=== PATIENT | male | born 1965 | race Caucasian/White ===

== ENCOUNTER → 2017-12-14 13:31 | Outpatient (CLI) | payer BC, SELFPAY ==
[2017-12-14 13:59] LABS: Blood Urea Nitrogen 22 mg/dL (7-18); Estimated Glomerular Filt Rate 64 ml/min (>60); GFR (African American) 78 ML/MIN (>60)
== END ==
PROVIDERS: Visit Provider Internal Medicine Adolescent Medicine
DX: R06.09 Other forms of dyspnea (principal)
CPT/HCPCS: 36415; 82565; 84520

== ENCOUNTER → 2017-12-15 09:22 | Outpatient (CLI) | payer BC, SELFPAY ==
--- NOTE | 2017-12-15 09:28 | CT_ITS ---
CT angio chest HISTORY: ITS.REASON: DYSPNEA ON EXERTION ORDERING PHYSICIAN: Kulwant Rojas MD PATIENT AGE: 52 years TECHNIQUE: Axial images obtained following the administration of 75 mL of Isovue 370 . Sagittal, and coronal reformatted images are also generated and reviewed. COMPARISON: 09/01/2016 FINDINGS: There is scattered small lymph nodes are present within the mediastinum not significant changed. The largest node is in the right paratracheal region measuring 2.8 x 1.5 cm. Small hilar nodes are also present. Some of these nodes contain calcium. Subcarinal lymph nodes are present as well measuring up to 3.7 x 2.7 cm not significantly changed. Small periesophageal lymph nodes are present as well. No evidence of aortic aneurysm, dissection, or pulmonary embolus. There is calcification of the coronary arteries consistent with coronary artery disease. There are atelectatic changes in the right middle lobe and dependent changes in the lung bases. No lobar consolidation or effusion area no acute bony anomalies. Previously noted nodule in the right lower lobe once again noted and appears to contain some calcium consistent with a granuloma. Parenchymal faint opacity is present in the right apex medially nonspecific and may be part of the in changes from low lung volumes. IMPRESSION: 1. Overall no change from 09/01/2016 with no acute finding. 2. No evidence of pulmonary embolus or aortic aneurysm. 3. Mediastinal and hilar adenopathy overall not significantly changed
--- NOTE | 2017-12-15 10:19 | HMH.ITSHM ---
VALSARIAM VERAMIL LEVOTHYROXIN FUROSEMIDE POTASSIUM CHLORIDE
== END ==
PROVIDERS: Family Provider Internal Medicine Adolescent Medicine; PCP Internal Medicine Adolescent Medicine; Visit Provider Internal Medicine Adolescent Medicine
DX: R06.09 Other forms of dyspnea (principal)
CPT/HCPCS: 71275; Q9967

== ENCOUNTER → 2019-05-05 08:53 | Outpatient (CLI) | payer BC, SELFPAY ==
[2019-05-05 09:21] LABS: Basophils # 0.1 K/mm3 (0-0.2); Basophils % 0.8 % (0.1-2.0); Eosinophils # 0.1 K/mm3 (0.0-0.4); Eosinophils % 1.4 % (0.1-12.0); Hematocrit 48.4 % (42.0-52.0); Hemoglobin 15.6 g/dL (14.1-18.0); Lymphocytes # 2.3 K/mm3 (0.7-4.5); Lymphocytes % 26.6 % (10-50); Mean Corpuscular HGB Conc 32.3 g/dL (31.8-35.4); Mean Corpuscular Volume 92.9 fl (80-94); Mean Platelet Volume 7.5 fl (7.4-10.4); Monocytes # 0.6 K/mm3 (0.1-1.0); Monocytes % 7.5 % (1.7-9.3); Neutrophils # 5.4 K/mm3 (1.8-7.8); Neutrophils % 63.8 % (37.0-80.0); Platelet Count 166 K/mm3 (142-424); Red Cell Distribution Width 14.2 % (11.5-17.5); White Blood Count 8.5 K/mm3 (4.8-10.8)
[2019-05-05 09:48] LABS: Hemoglobin A1C 5.1 % (0.0-7.0)
[2019-05-05 10:36] LABS: Alanine Aminotransferase 39 U/L (12-78); Albumin Level 3.7 gm/dL (3.4-5.0); Albumin/Globulin Ratio 1.2 (1.1-1.8); Alkaline Phosphatase 79 U/L (46-116); Aspartate Amino Transferase 21 U/L (15-37); Bilirubin,Total 0.9 mg/dL (0.2-1.0); Blood Urea Nitrogen 19 mg/dL (7-18); Calcium 8.9 mg/dL (8.5-10.1); Carbon Dioxide 30 mmol/L (21.0-32.0); Chloride 104 mmol/L (98-107); Chol/HDL Ratio 5.7 (1-3.5); Cholesterol 183 mg/dL (140-200); Creatinine,Serum 1.17 mg/dL (0.70-1.30); Estimated Glomerular Filt Rate 66 ml/min (>60); Free Thyroxine Index 2.3 ug/dL (5.93-13.13); GFR (African American) 80 ML/MIN (>60); Globulin 3.2 gm/dl (1.3-3.2); Glucose 94 mg/dL (74-106); HDL Cholesterol 32 mg/dL (27-67); LDL Cholesterol 124 mg/dL (0-130); Prostate Specific Ag Screen 4.2 ng/mL (0.0-4.0); Sodium 140 mmol/L (136-145); T4 (Thyroxine) 7.3 ug/dl (4.7-13.3); Thyroid Stimulating Hormone 3.94 uIU/ml (0.358-3.740); Total Protein,Serum 6.9 gm/dL (6.4-8.2); Triglycerides 135 mg/dL (30-200); Triiodothryronine (T3) Uptake 32 % (31-39); VLDL Cholesterol 27 mg/dL (0-40)
[2019-05-06 17:13] LABS: Vitamin B12 895 pg/mL (232-1245)
[2019-05-09 08:21] LABS: Methylmalonic Acid 166 nmol/L (0-378)
[2019-05-09 14:08] LABS: Vitamin D 25 Hydroxy 35.2 ng/mL (30.0-100.0)
[2019-05-09 14:16] LABS: Testosterone, Total, LC/MS 213.9 ng/dL (264.0-916.0); Testosterone,Free 8.2 pg/mL (7.2-24.0)
== END ==
PROVIDERS: Visit Provider Internal Medicine Adolescent Medicine
DX: E29.1 Testicular hypofunction (principal); N40.1 Benign prostatic hyperplasia with lower urinary tract symptoms; E03.9 Hypothyroidism, unspecified; Z12.5 Encounter for screening for malignant neoplasm of prostate
CPT/HCPCS: 36415; 80053; 80061; 82131; 82607; 82652; 83036; 84402; 84403; 84436; 84443; 84479; 85025; G0103

== ENCOUNTER → 2019-08-04 11:18 | Outpatient (CLI) | payer BC, SELFPAY ==
[2019-08-04 11:31] LABS: Basophils # 0.1 K/mm3 (0-0.2); Basophils % 0.7 % (0.1-2.0); Eosinophils # 0.2 K/mm3 (0.0-0.4); Eosinophils % 1.9 % (0.1-12.0); Hematocrit 51.5 % (42.0-52.0); Hemoglobin 16.5 g/dL (14.1-18.0); Lymphocytes # 1.8 K/mm3 (0.7-4.5); Lymphocytes % 20.1 % (10-50); Mean Corpuscular Volume 97.1 fl (80-94); Mean Platelet Volume 7.7 fl (7.4-10.4); Monocytes # 0.7 K/mm3 (0.1-1.0); Monocytes % 8.5 % (1.7-9.3); Neutrophils % 68.9 % (37.0-80.0); Platelet Count 190 K/mm3 (142-424); Red Cell Distribution Width 14.2 % (11.5-17.5); White Blood Count 8.8 K/mm3 (4.8-10.8)
[2019-08-04 12:48] LABS: Erythrocyte Sedimentation Rate 4 mm/hr (0-20)
[2019-08-04 13:32] LABS: Alanine Aminotransferase 37 U/L (12-78); Albumin Level 3.8 gm/dL (3.4-5.0); Albumin/Globulin Ratio 1.3 (1.1-1.8); Alkaline Phosphatase 75 U/L (46-116); Anion Gap 10.4 mEq/L (5-15); Aspartate Amino Transferase 21 U/L (15-37); Bilirubin,Total 0.8 mg/dL (0.2-1.0); Blood Urea Nitrogen 14 mg/dL (7-18); Calcium 8.9 mg/dL (8.5-10.1); Carbon Dioxide 29 mmol/L (21.0-32.0); Chloride 104 mmol/L (98-107); Chol/HDL Ratio 6.1 (1-3.5); Cholesterol 164 mg/dL (140-200); Creatinine,Serum 1.04 mg/dL (0.70-1.30); Estimated Glomerular Filt Rate 75 ml/min (>60); GFR (African American) 91 ML/MIN (>60); Glucose 88 mg/dL (74-106); HDL Cholesterol 27 mg/dL (27-67); LDL Cholesterol 116 mg/dL (0-130); Potassium 4.4 mmoL/L (3.5-5.1); Sodium 139 mmol/L (136-145); Thyroid Stimulating Hormone 3.07 uIU/ml (0.358-3.740); Total Protein,Serum 6.8 gm/dL (6.4-8.2); Triglycerides 103 mg/dL (30-200); VLDL Cholesterol 21 mg/dL (0-40)
== END ==
PROVIDERS: Visit Provider Internal Medicine Adolescent Medicine
DX: R07.9 Chest pain, unspecified (principal); R78.5 Finding of other psychotropic drug in blood; N40.1 Benign prostatic hyperplasia with lower urinary tract symptoms; E03.9 Hypothyroidism, unspecified; R51 Headache
CPT/HCPCS: 36415; 80053; 80061; 84443; 85025; 85651

== ENCOUNTER → 2019-08-09 14:06 | Outpatient (CLI) | payer BC, SELFPAY ==
--- NOTE | 2019-08-09 | CA_ITS ---
APPROVED REPORT Exam: Exercise Treadmill Technologist: Lois Gamez, Ht: 5 ft 10 in Wt: 230 lbs BSA: 2.21 m2 HR: 70 bpm BP: 142/81 mmHg Rhythm: NSR ST-T ABN. INFERIORLY Medical History Medical History: HTN Medications: Verapamil,,,,, Losartan,,,,, Cardiac Risk Factors: HTN, FHX of CAD Stress Test Details Test: Juan R HR Resting HR: 77 bpm Max Heart Rate (APMHR): 169 bpm Max HR Achieved: 132 bpm Target HR (85% APMHR): 143 bpm % of APMHR: 78 Recovery HR: 116 bpm BP Resting BP: 142.0/81.0 mmHg Max BP: 215.0/76.0 mmHg Recovery BP: 190.0/75.0 mmHg ECG Resting ECG: NSR,ST-T ABN.INFERIORLY Clinical Exercise duration: 09:32 min Highest Stage Achieved: Exercise capacity: 10.1 METs Stress ECG Conclusion EXERCISED 9:32 IN JUAN R PROTOCOL WITH MAX HEART RATE OF 132 BPM WHICH IS 78% OF PM FOR AGE. MAX BP 215/76. METS = 10.1. TEST STOPPED DUE TO SOA AND FATIGUE. PATIENT HAD SOA BUT NO CHEST PAIN. RARE PAC. EXAGGERATION OF BASELINE ST-T ABNORMALITIES INFERIORLY. APPROX 0.5MM HORIZONTAL ST DEPRESSION LATERALLY. PROBABLY NORMAL GXT. BLUNTED HEART RATE RESPONSE ON VERAPAMIL. GXT ONLY(NO IMAGING) Test Summary REST . . . . . . . Sitting REST . . . . . . . Standing REST . . . . . . . Sitting REST 04:10 0.0 0.0 77 . 142/ 81 . . Stage 1 01:00 10.0 1.7 88 . . . . Stage 1 02:00 10.0 1.7 95 . . . . Stage 1 03:00 10.0 1.7 93 . 174/ 66 . . Stage 2 01:00 12.0 2.5 97 . . . . Stage 2 02:00 12.0 2.5 103 . . . . Stage 2 03:00 12.0 2.5 105 . 186/ 80 . . Stage 3 01:00 14.0 3.4 112 . . . . Stage 3 02:00 14.0 3.4 116 . . . . Stage 3 03:00 14.0 3.4 121 . 215/ 76 . . Stage 4 00:32 16.0 4.2 130 . . . Stop exercise at 09:32 RECOVERY 01:00 0.0 0.0 116 . . . . RECOVERY 02:00 0.0 0.0 95 . 190/ 75 . . RECOVERY 03:00 0.0 0.0 86 . 187/ 78 . . RECOVERY 04:00 0.0 0.0 86 . 172/ 74 . . RECOVERY 05:00 0.0 0.0 85 . 184/ 64 . . RECOVERY 05:41 0.0 0.0 81 . 184/ 64 . . Electronically signed by : Kulwant Rojas, 08/10/2019 08:15:26
--- NOTE | 2019-08-09 15:13 | MR_ITS ---
PROCEDURE: MR HEAD/BRAIN WO CON CLINICAL INDICATION: HEADACHE ABOVE THE EYE REGION Headache on the right side severe at times COMPARISON: [facility] MRI-BRAIN W/WO from 05/09/2013 LS5 LUMBAR SPINE 5 VIEWS from 03/27/2014 TECHNIQUE: Routine multiplanar multi echo sequences are performed without gadolinium enhancement. FINDINGS: No midline shift, mass effect, intracranial hemorrhage, hydrocephalus, or acute infarction is evident. There are scattered periventricular and subcortical T2 white matter hyperintensities. These are nonspecific but may be seen with ischemic gliotic change from microvascular disease or migraine headache. A few T2 hyperintensities are present in the hakan. These do not demonstrate restricted diffusion. Incidental note made perivascular dilated spaces are present within the basal ganglia. The cerebellopontine angle, cerebellum, and brainstem are unremarkable. No mastoid effusion evident. There is a prominent mucous retention cyst in the right maxillary sinus measuring 24 mm. The pituitary, optic chiasm, corpus callosum, and craniocervical junction have an unremarkable appearance. No large aneurysms are evident. IMPRESSION: 1. No acute intracranial findings. 2. Scattered punctate periventricular and subcortical T2 white matter hyperintensities. These are nonspecific and may be seen with ischemic gliotic change from microvascular disease or migraine headache. Demyelinating process is felt to be less likely due to the characteristics but not totally excluded. 3. Right maxillary sinus retention cyst Dictated by: Saturnino Andrew MD 08/10/2019 12:41 Electronically signed by Saturnino Andrew MD in [place] 08/10/2019 12:41
== END ==
PROVIDERS: PCP Internal Medicine Adolescent Medicine; Visit Provider Internal Medicine Adolescent Medicine
DX: R51 Headache (principal); R07.9 Chest pain, unspecified
CPT/HCPCS: 70551; 93017

== ENCOUNTER → 2019-12-12 12:37 | Outpatient (CLI) | payer BC, SELFPAY ==
--- NOTE | 2019-12-12 12:42 | XR_ITS ---
PROCEDURE: XR CHEST 2V CLINICAL HISTORY: WHEEZING /Lisfranc's tissue acute past os and contrast a pain base jump placed COMPARISON: CXR CHEST(2 VIEWS-NOT PORTABLE) from 09/01/[address] angio chest from 12/15/2017 FINDINGS: The cardiomediastinal silhouette and pulmonary vascularity are within normal limits. Coronary artery calcification or stent is noted. The lungs are clear without infiltrates, suspicious nodules, or pleural effusions. No acute bony abnormalities. IMPRESSION: No acute findings. Dictated by: Saturnino Andrew MD 12/12/2019 17:57 Electronically signed by Saturnino Andrew MD in [place] 12/12/2019 17:57
== END ==
PROVIDERS: PCP Internal Medicine Adolescent Medicine; Visit Provider Internal Medicine Adolescent Medicine
DX: R06.2 Wheezing (principal)
CPT/HCPCS: 71046

== ENCOUNTER → 2020-01-01 13:26 | Outpatient (CLI) | payer BC, SELFPAY ==
--- NOTE | 2020-01-01 13:29 | CT_ITS ---
PROCEDURE: CT CHEST WO CON CLINICAL INDICATION: [employer] PNEUMOCANIOSIS, CHRONIC BRONCHITIS COMPARISON: [facility] CT CHEST W/ CONTRAST from 09/01/[address] angio chest from 12/15/2017 TECHNIQUE: Axial images obtained with sagittal and coronal reformats. All CT scans at the facility use one or more dose reduction, viz: automated exposure control, ma/kV adjustment per patient size (including targeted exams where dose is matched to indication, i.e. head), or iterative reconstruction technique. FINDINGS: HEART AND MEDIASTINAL STRUCTURES: Nodularity of the isthmus of the thyroid gland with bilateral hypo dense nodules of the thyroid gland. There is scattered small mediastinal lymph nodes some of which contain calcium. Small bilateral hilar nodes are also present some of which contain calcium. There are coronary artery calcifications. Normal heart size. There is minimal thickening of pericardium LUNGS AND PLEURAL SPACES: There are scattered small bilateral pulmonary nodular opacities. Some of these were present previously but some were not identified previously but may have been due to the technique as there was poor inspiration on the previous exam. There is a 3 mm nodule in the right apex and 1 in the right apex medially and 1 in the right upper lobe posterior laterally with a partially calcified nodule in the right middle lobe. No lobar consolidation or collapse. No diaphragmatic calcification. No pleural plaques apparent. No pulmonary fibrosis or interlobular septal thickening. There is some scarring in the right middle lobe. The BONY STRUCTURES: No acute bony abnormalities apparent. UPPER ABDOMEN: Unremarkable. ADDITIONAL FINDINGS: No other significant abnormalities. IMPRESSION: Overall no significant change in the scattered small mediastinal and hilar lymph nodes some which contain calcium with evidence of old granulomatous disease. There are nonspecific small nodular opacities some of which are unchanged but some which were not identified previously possibly due to the technique. Suggest 6 month follow-up to confirm short term stability Dictated by: Saturnino Andrew MD 01/02/2020 12:18 Electronically signed by Saturnino Andrew MD in [place] 01/02/2020 12:18
== END ==
PROVIDERS: PCP Internal Medicine Adolescent Medicine; Visit Provider Internal Medicine Adolescent Medicine
DX: J60 Coalworker's pneumoconiosis (principal); J42 Unspecified chronic bronchitis
CPT/HCPCS: 71250

== ENCOUNTER → 2020-02-08 12:27 | Outpatient (CLI) | payer BC, SELFPAY ==
--- NOTE | 2020-02-08 12:35 | XR_ITS ---
PROCEDURE: XR HIP RT 2-3V W/PELVIS CLINICAL INDICATION: RT HIP PAIN Right hip pain COMPARISON: HIPB2 HIP BILATERAL 2 VIEW MIN EACH from 11/24/2016 XR FEMUR RT 2V from 02/08/2020 FINDINGS: Mild osteoarthritic changes are present involving the right hip with slight decrease in the joint space and osteophyte formation. No acute fracture or dislocation. No lytic or blastic change. IMPRESSION: Mild osteoarthritis of the right hip Dictated by: Saturnino Andrew MD 02/08/2020 16:07 Electronically signed by Saturnino Andrew MD in [place] 02/08/2020 16:07
--- NOTE | 2020-02-08 12:35 | XR_ITS ---
PROCEDURE: XR SACROILIAC JOINT BI MIN 3V CLINICAL INDICATION: RT HIP PAIN COMPARISON: No exams were available for comparison FINDINGS: The SI joints have an unremarkable appearance. No sclerosis, effusion, or lytic change evident. IMPRESSION: Negative SI joints Dictated by: Saturnino Andrew MD 02/08/2020 16:09 Electronically signed by Saturnino Andrew MD in [place] 02/08/2020 16:09
--- NOTE | 2020-02-08 12:35 | XR_ITS ---
PROCEDURE: XR FEMUR RT 2V CLINICAL INDICATION: RT HIP PAIN COMPARISON: No exams were available for comparison FINDINGS: No fracture or dislocation. No lytic or blastic change. There is normal mineralization. There are mild osteoarthritic changes of the right hip and the medial and lateral compartment of the right knee. No fracture or dislocation. There is mild generalized vascular calcification. No lytic or blastic change. Other findings:None. IMPRESSION: Mild osteoarthritis of the hip and knee otherwise negative right femur Dictated by: Saturnino Andrew MD 02/08/2020 16:08 Electronically signed by Saturnino Andrew MD in [place] 02/08/2020 16:08
== END ==
PROVIDERS: PCP Internal Medicine Adolescent Medicine; Visit Provider Internal Medicine Adolescent Medicine
DX: M25.551 Pain in right hip (principal)
CPT/HCPCS: 72202; 73502; 73552

== ENCOUNTER → 2020-08-09 08:31 | Outpatient (CLI) | payer BC, SELFPAY ==
--- NOTE | 2020-08-09 | MR_ITS ---
PROCEDURE: MR LUMBAR SPINE WO CON CLINICAL INDICATION: LBP WITH RT LEG SCIATICA Severe low back pain with right leg sciatica COMPARISON: [facility] LS5 LUMBAR SPINE 5 VIEWS from 03/27/2014 MR MR HEAD/BRAIN WO CON from 08/09/2019 TECHNIQUE: Standard multiplanar multiecho sequences are performed without contrast. 3-D MIP and myelographic images are also rendered and reviewed FINDINGS: There is normal alignment. The spinal cord ends at the L1 level. L1-L2: Unremarkable. L2-L3: Mild degenerative disc disease with mild bulging disc and facet and ligamentum hypertrophy. There is small broad-based left foraminal of disc protrusion/disc osteophyte complex causing mild left-sided foraminal narrowing. Type 2 endplate changes. L3-L4: Degenerative disc disease with broad-based bulging disc slightly eccentric toward the right with small right foraminal and lateral disc osteophyte complex with bilateral foraminal narrowing greater on the right. L4-5: Degenerative disc disease with bulging disc with facet and ligamentum hypertrophy with type 2 endplate changes with bilateral foraminal narrowing L5-S1: Mild facet and ligamentum hypertrophy. No bony canal stenosis. No extruded herniated disc. IMPRESSION: Multilevel lumbar spondylosis with degenerative disc disease, disc osteophyte complexes, bulging disc, endplate changes, facet and ligamentum hypertrophy with lateral recess and foraminal narrowing. Please see above for detailed description at each level. Dictated by: Saturnino Andrew MD 08/10/2020 07:34 Saturnino Andrew MD in [place] 08/10/2020 07:34
== END ==
PROVIDERS: PCP Internal Medicine Adolescent Medicine; Visit Provider Internal Medicine Adolescent Medicine
DX: M54.41 Lumbago with sciatica, right side (principal); G57.91 Unspecified mononeuropathy of right lower limb
CPT/HCPCS: 72148; 76376

== ENCOUNTER 2020-09-25 07:45 | Outpatient (RCR) | payer BC, SELFPAY | END 2020-09-25 07:50 | disposition home or self-care (01) | LOC: PT 07:45 | PROVIDERS: PCP Internal Medicine Adolescent Medicine; Visit Provider Neurological Surgery | DX: M54.5 Low back pain (principal) | CPT/HCPCS: 97163 ==

== ENCOUNTER 2020-10-26 22:59 | Emergency (ER) | payer BC, SELFPAY ==
[2020-10-26 23:00] VITALS: BP 146/85; PULSE 89; RESP 16; TEMP 36.8; O2SAT 96; BMI 33.0
--- NOTE | 2020-10-26 23:20 | CT_ITS ---
PROCEDURE: CT ABDOMEN PELVIS WO CON CLINICAL INDICATION: right flank pain Right flank pain COMPARISON: No exams were available for comparison TECHNIQUE: Axial images obtained with sagittal and coronal reformats. All CT scans at the facility use one or more dose reduction, viz: automated exposure control, ma/kV adjustment per patient size (including targeted exams where dose is matched to indication, i.e. head), or iterative reconstruction technique. FINDINGS: LOWER THORAX: Atelectatic changes are present in the lung bases. Coronary artery calcifications are noted. ABDOMEN & PELVIS: Fatty liver. The spleen, adrenal glands, and pancreas have an unremarkable appearance. There are punctate bilateral renal calculi. There is an obstructing stone in the proximal right ureter which measures 13 mm longitudinal and 5 mm transverse causing moderate right-sided hydronephrosis. There is mild stranding of the right perinephric renal fat. There are punctate bilateral renal calculi measuring up to 3 mm on both sides. Unremarkable appendix. There are scattered diverticula but no evidence of diverticulitis. Prostate is enlarged at 5.6 cm. No acute bony findings. There is diffuse vascular calcification in the lower extremities. IMPRESSION: 1. 13 x 5 mm calculus in the proximal right ureter causing moderate hydronephrosis 2. Bilateral renal calculi. 3. Fatty liver Dictated by: Saturnino Andrew MD 10/27/2020 05:36 Saturnino Andrew MD in [place] 10/27/2020 05:36
[2020-10-26 23:24] LABS: Basophils # 0.1 K/mm3 (0-0.2); Basophils % 0.4 % (0.1-2.0); Eosinophils # 0.2 K/mm3 (0.0-0.4); Eosinophils % 1.1 % (0.1-12.0); Hematocrit 49.2 % (42.0-52.0); Hemoglobin 16.9 g/dL (14.1-18.0); Lymphocytes # 1.7 K/mm3 (0.7-4.5); Lymphocytes % 10.3 % (10-50); Mean Corpuscular HGB Conc 34.3 g/dL (31.8-35.4); Mean Corpuscular Hemoglobin 32.6 pg (27.0-31.2); Mean Corpuscular Volume 94.8 fl (80-94); Mean Platelet Volume 7.4 fl (7.4-10.4); Monocytes # 1.1 K/mm3 (0.1-1.0); Monocytes % 6.4 % (1.7-9.3); Neutrophils # 13.4 K/mm3 (1.8-7.8); Neutrophils % 81.8 % (37.0-80.0); Platelet Count 201 K/mm3 (142-424); Red Blood Count 5.19 M/mm3 (4.60-6.20); White Blood Count 16.4 K/mm3 (4.8-10.8)
[2020-10-26 23:26] LABS: MANUAL DIFFERENTIAL MANUAL DIFFERENTIAL (MANUAL DIFF)
[2020-10-26 23:35] LABS: Alanine Aminotransferase 29 U/L (12-78); Albumin Level 4.5 g/dl (3.5-5.0); Albumin/Globulin Ratio 1.4 (1.1-1.8); Alkaline Phosphatase 96 U/L (38-126); Amylase 77 U/L (30-110); Aspartate Amino Transferase 33 U/L (17-59); Bilirubin,Total 0.8 mg/dl (0.2-1.3); Blood Urea Nitrogen 18 mg/dl (9-20); Calcium 9.7 mg/dl (8.4-10.2); Carbon Dioxide 28 mmol/L (22.0-30.0); Chloride 101 mmol/L (98-107); Creatinine Clearance Estimated 84 mL/min (50-200); Estimated Glomerular Filt Rate 49 ml/min (>60); GFR (African American) 59 ML/MIN (>60); Globulin 3.3 g/dL (1.3-3.2); Glucose 128 mg/dl (74-100); Lipase 75 U/L (23-300); Sodium 138 mmol/L (136-145); Total Protein,Serum 7.8 g/dl (6.3-8.2)
--- NOTE | 2020-10-26 23:35 | HMH.EDGENADL ---
ED Disposition Clinical Impression: Renal colic on right side Disposition: Home, Self-Care Condition on Discharge: Good Instructions: DI for Kidney Stones Additional Instructions: call pcp and urology this am Prescriptions: Tamsulosin HCl [Flomax 0.4mg capsule] 0.4 mg PO HS #10 cap Transmission Status: Pending to [id number] Referrals: Kulwant Rojas MD [Primary Care Provider] - Jose Mulligan MD [Staff Physician] - - Critical Care Critical Care Time: No Attestation: On , the high probability of a clinically significant, sudden or life threatening deterioration of the following system(s) required my full and direct attention, intervention and personal management. The time I documented below is in addition to time spent performing reported procedures but includes the following listed in this critical care notation. Medical Decision Making - Medical Records Medical records reviewed: Yes: I reviewed the patient's medical records. - Hugo Inquiry Pt receiving controlled substance: No Vital Signs: 10/26/20 23:00 Temperature 98.2 F Temperature Source Oral Pulse Rate [Left Radial] 89 Respiratory Rate 16 Blood Pressure [Right Arm] 146/85 H Blood Pressure Mean [Right Arm] 105 Blood Pressure Source [Right Arm] Automatic Cuff Blood Pressure Position [Right Arm] Sitting 02 Sat by Pulse Oximetry 96 Oxygen Delivery Method Room Air - Lab Data Lab results reviewed: Yes: I reviewed the patient's lab results. Lab Results 10/26/20 23:20: WBC 16.4 H, RBC 5.19, Hgb 16.9, Hct 49.2, MCV 94.8 H, MCH 32.6 H, MCHC 34.3, RDW 15.0, Plt Count 201, MPV 7.4, Neut % (Auto) 81.8 H, Lymph % (Auto) 10.3, Graham % (Auto) 6.4, Eos % (Auto) 1.1, Baso % (Auto) 0.4, Neut # (Auto) 13.4 H, Lymph # (Auto) 1.7, Graham # (Auto) 1.1 H, Eos # (Auto) 0.2, Baso # (Auto) 0.1, Total Counted 100, Neutrophils % (Manual) 73, Band Neutrophils % 8.0, Lymphocytes % (Manual) 19, Platelet Estimate Normal, RBC Morphology Normal, ESR 2 10/26/20 23:20: Sodium 138, Potassium 4.0, Chloride 101, Carbon Dioxide 28, Anion Gap 13.0, BUN 18, Creatinine 1.50 H, Estimated Creat Clear 84, Estimated GFR 49 L, Est GFR ( Amer) 59, Glucose 128 H, Calcium 9.7, Total Bilirubin 0.8, AST 33, ALT 29, Alkaline Phosphatase 96, C-Reactive Protein 6.9 H, Total Protein 7.8, Albumin 4.5, Globulin 3.3 H, Albumin/Globulin Ratio 1.4, Amylase 77, Lipase 75 10/27/20 00:23: Urine Color Yellow, Urine Appearance Clear, Urine pH 8.0, Ur Specific [place] 1.020, Urine Protein Trace, Urine Glucose (UA) Negative, Urine Ketones Negative, Urine Blood 3+, Urine Nitrate Negative, Urine Bilirubin Negative, Urine Urobilinogen 0.2, Ur Leukocyte Esterase Negative, Urine RBC 20-50, Ur Squamous Epith Cells 3-5, Amorphous Sediment Trace Result diagrams: 10/26/20 23:20 10/26/20 23:20 Orders (Tests/Meds): ED MEDICATIONS Generic Name Dose Route Start Last Admin Trade Name Freq PRN Reason Stop Dose Admin Sodium Chloride 1,000 mls @ 999 mls/hr 10/26/20 23:30 10/26/20 23:22 Sod Chlor 0.9% 1000ml Bag IV 10/27/20 00:30 999 mls/hr .Q1H1M KULDIP Administration Discontinued Medications Generic Name Dose Route Start Last Admin Trade Name Freq PRN Reason Stop Dose Admin Hydromorphone HCl 0.5 mg 10/27/20 00:11 10/27/20 00:17 Hydromorphone 2mg/Ml Syringe IV 10/27/20 00:12 0.5 mg ONCE ONE Administration Ketorolac Tromethamine 30 mg 10/26/20 23:20 10/26/20 23:22 Ketorolac 30mg/Ml Vial IV 10/26/20 23:21 30 mg ONCE ONE Administration Ondansetron HCl 4 mg 10/26/20 23:20 10/26/20 23:22 Ondansetron 4mg/2ml Vial IV 10/26/20 23:21 4 mg ONCE ONE Administration Tamsulosin HCl 0.4 mg 10/27/20 00:10 10/27/20 00:17 Tamsulosin 0.4mg Capsule PO 10/27/20 00:11 0.4 mg ONCE ONE Administration ORDERS Category Date Time Status CT abdomen pelvis wo con Stat Cat Scan 10/26/20 23:20 Taken Covid-19 IgG/IgM ([facility]) Stat Lab 10/27/20 00:07 Received
[2020-10-26 23:41] LABS: C-Reactive Protein 6.9 mg/L (0-4)
[2020-10-26 23:42] LABS: Lymphocytes % 19 % (10-50); Neutrophils % 73 % (42-76); Platelet Estimate Normal; RBC Morphology Normal; Total Cells Counted 100
--- NOTE | 2020-10-26 23:44 | PC.NURSE ---
pt back from CT
[2020-10-26 23:49] LABS: Erythrocyte Sedimentation Rate 2 mm/hr (0-20)
[2020-10-27 00:28] LABS: Microscopic, Urine URINE MICROSCOPIC (MICROSCOPIC)
[2020-10-27 00:31] LABS: Appearance,Urine CLEAR (Clear); Bilirubin,Urine Negative (Negative); Blood, Urine 3+ (Negative); Color,Urine YELLOW (Yellow); Glucose,Urine (UA) Negative (Negative); Ketones,Urine Negative (Negative); Leukocyte Esterase,Urine Negative (Negative); Nitrate,Urine Negative (Negative); Protein,Urine TRACE (Negative); Urobilinogen,Urine 0.2 EU/dl (0.2)
[2020-10-27 00:35] LABS: Amorphous Sediment,Urine Trace /lpf; RBC,Urine 20-50 #/hpf (0-3)
[2020-10-27 00:50] VITALS: BP 125/61; PULSE 80; RESP 16; TEMP 36.8; O2SAT 98
[2020-10-27 01:04] LABS: Coronavirus 19 IgG Antibody Negative (Negative); Coronavirus 19 IgM Antibody Negative (Negative)
== END 2020-10-27 00:52 | disposition home or self-care (01) ==
PROVIDERS: Emergency Provider Emergency Medicine; PCP Internal Medicine Adolescent Medicine
DX: N20.0 Calculus of kidney (principal); I10 Essential (primary) hypertension
CPT/HCPCS: 74176; 80053; 81001; 82150; 83690; 85007; 85025; 85651; 86140; 86328; 96365; 96375; 99283; J2405

== ENCOUNTER → 2020-10-27 13:47 | Outpatient (CLI) | payer BC, SELFPAY ==
[2020-10-27 14:24] LABS: Coronavirus 19 IgG Antibody Negative (Negative); Coronavirus 19 IgM Antibody Negative (Negative)
== END ==
PROVIDERS: Visit Provider Urology
DX: Z01.812 Encounter for preprocedural laboratory examination (principal); Z11.52 Encounter for screening for COVID-19; N20.1 Calculus of ureter
CPT/HCPCS: 36415; 86328

== ENCOUNTER 2020-10-27 14:00 | Day surgery (SDC) | payer BC, SELFPAY ==
[2020-10-27] VITALS (10 sets, daily range): BP systolic 92–153; BP diastolic 53–75; PULSE 56–80; RESP 12–18; TEMP 36.4–43; O2SAT 92–98; BMI 33.0
--- NOTE | 2020-10-27 | FL_ITS ---
PROCEDURE: FL URETHROCYSTOGRAM RETRO CLINICAL INDICATION: CYSTOSCOPY IN OR COMPARISON: No exams were available for comparison FINDINGS: Fluoroscopy: 25 seconds Images submitted demonstrating placement of right ureteral stent with the proximal aspect overlying the right upper quadrant and distal aspect curled overlying the right pelvic region IMPRESSION: Status post placement of right ureteral stent Dictated by: Saturnino Andrew MD 10/27/2020 19:39 Saturnino Andrew MD in [place] 10/27/2020 19:39
--- NOTE | 2020-10-27 15:22 | P.PN_ITS ---
[facility] Anesthesia Checklist - Structural Data Admitted From: Home Planned Operative Procedure/s: cysto Consent for Planned Operative Procedure(s) Verified: Yes - Additional verifications Anesthesia Reactions: No Hx Blood Transfusions: No Blood Transfusion Reaction: No - Airway Assessment C-Spine Mobility Assessed: Yes TMJ Mobility Assessed: Yes Dentition: Dentures-good fit - Neurological Assessment Level of Consciousness: Awake, Alert, Appropriate - Anesthesia Plan Anesthesia Risk discussed: Yes Anesthesia Plan: Verified ASA Class: III Anesthesia Type: General [facility] History I have reviewed the patient's past medical history: Yes Medical History: Reports:: Hypertension, Lung Disease, Kidney Stones Denies:: Diabetes Mellitus Type 1, Diabetes Mellitus Type 2, Internal Pacemaker, MRSA, Seizures *Have you ever received a pneumonia vaccine?: No *Have you received a flu vaccine this season?: Yes Other Medical History: Denies: Blood Transfusion Reaction Anesthesia experience/problems:: none Other Surgeries: Yes: Colonoscopy, Hernia Repair. No: Pacemaker Amputation: No Fractures: No - *Social History Last grade of school completed: High school graduate Smoking Status: Former smoker Tobacco Type: cigarettes #Yrs smoked (if former smoker): 30 Alcohol Intake: current Alcohol Intake Frequency:: holidays/special occasions only Substance Use Type: denies use *Occupational Status:: employed Housing: house Household Members: family *Travel in the last 8 weeks: None Family Hx:: Heart Attack, Hypertension
--- NOTE | 2020-10-27 15:24 | HMH.ANESI ---
[facility] Anesthesia Record Part I Intake, IV Amount: 500 Estimated blood loss (mL): 0 Urine output (mL): 0 Blood Pressure: 92/54 SaO2: 92 Pulse Rate: 80 Respiratory Rate: 12 Temperature: 97.6 F Patient is:: Awake, Stable Stable to PACU at:: 15:15
--- NOTE | 2020-10-27 15:47 | PC.NURSE ---
1544-detailed report given at bedside to YOVANNY Vicente 1545-pt transported to post op via stretcher w/kasandra rails up per YOVANNY Vicente, vss, pt stable
--- NOTE | 2020-10-27 15:51 | HMH.OPNOTE ---
Date of procedure: 10/27/20 Pre-op Diagnosis:: Right proximal ureteral stone, 13 x 5 mm Post-op Diagnosis:: Same Procedure performed:: Cystoscopy with right ureteral stone manipulation and right stent placement Surgeon:: Jose Mulligan MD PEELED POTATO INSPECTOR:: Mihai Mahoney Anesthesia: GETA Estimated blood loss (mL): 0 Clinical Note:: Seen in the emergency room last evening with right renal colic. CT scan revealed a 13 x 5 mm stone in the proximal right ureter with obstruction. His white count is elevated to 16.4 and his creatinine is elevated to 1.5. He is afebrile. He wishes to proceed with stent placement and later ESWL. Operative findings:: Proximal right ureteral stone was manipulated back into the kidney without difficulty. A 4.8 x 26 Bermudian stent was placed. There was no evidence of pyelonephrosis. Operative note:: Patient taken to the operating room after informed consent was obtained. Was placed on the operating table in the supine position and general anesthesia administered. Sequential compression devices and preoperative antibiotics administered. He was then placed inside the dorsal lithotomy position and prepped and draped in the standard surgical fashion. A 22 B[place]udian cystoscope passed into the urethral meatus and into the bladder without difficulty. The bladder was examined in a systematic fashion. There is no evidence of mucosal abnormalities, stones, trabeculation or diverticula. Prostate was enlarged and median lobe pushed inwards towards the trigone. The ureteral orifices in their normal anatomic position. A 5 B[place]udian ureteral catheter passed into the right ureteral orifice and under fluoroscopy passed up to the level of the stone. The stone was then manipulated retrograde and into the kidney without difficulty. 035 guidewire then passed through the ureteral catheter and into the renal pelvis. The ureteral catheter was removed and a 4.8 x 26 B[place]udian stent was passed over the wire and under fluoroscopy the wire was removed and a good curl was noted in the right renal pelvis and in the bladder. String was left on for later removal and was taped to the penis. Patient tolerated procedure well there are no complications. Urojet was placed into the urethra afterwards. Condition: stable Disposition: PACU Specimens:: None Complications:: None
--- NOTE | 2020-10-30 10:39 | HMH.ANESII ---
[facility] Anesthesia Record Part II Discharge Time: 15:45 Destination: [facility] PACU nurse assessment reviewed?: Yes Patient Condition:: Good Anesthesia Complications:: None Swallowing reflex intact?: Yes Cyanosis?: No Blood Pressure: 124/75 Pulse Rate: 60 Temperature: 97.8 F Mental Status: Alert & Oriented Pain level:: 0 Nausea and/or vomitting:: None Intake, IV Amount: 1,500
[2020-10-30 10:40] VITALS: BP 124/75; PULSE 60; TEMP 36.6
== END 2020-10-27 16:16 | disposition home or self-care (01) ==
PROVIDERS: PCP Internal Medicine Adolescent Medicine; Visit Provider Urology
PROC: (CPT 52332; principal; 2020-10-27 14:45)
DX: N21.1 Calculus in urethra (principal); N40.1 Benign prostatic hyperplasia with lower urinary tract symptoms; I10 Essential (primary) hypertension; Z87.891 Personal history of nicotine dependence; Z82.49 Family history of ischemic heart disease and other diseases of the circulatory system; Z79.890 Hormone replacement therapy; Z79.899 Other long term (current) drug therapy
CPT/HCPCS: 52000; 74450; 76000; 96374; C2617; J2405

== ENCOUNTER → 2020-11-05 12:34 | Outpatient (CLI) | payer BC, SELFPAY ==
[2020-11-05 13:43] LABS: Basophils # 0.1 K/mm3 (0-0.2); Basophils % 0.6 % (0.1-2.0); Eosinophils # 0.1 K/mm3 (0.0-0.4); Eosinophils % 1.6 % (0.1-12.0); Hematocrit 48.9 % (42.0-52.0); Hemoglobin 15.9 g/dL (14.1-18.0); Lymphocytes # 1.7 K/mm3 (0.7-4.5); Lymphocytes % 19.3 % (10-50); Mean Corpuscular HGB Conc 32.4 g/dL (31.8-35.4); Mean Corpuscular Hemoglobin 31.1 pg (27.0-31.2); Mean Corpuscular Volume 95.8 fl (80-94); Mean Platelet Volume 7.5 fl (7.4-10.4); Monocytes # 0.7 K/mm3 (0.1-1.0); Monocytes % 7.6 % (1.7-9.3); Neutrophils # 6.4 K/mm3 (1.8-7.8); Neutrophils % 70.9 % (37.0-80.0); Platelet Count 178 K/mm3 (142-424); Red Blood Count 5.11 M/mm3 (4.60-6.20); Red Cell Distribution Width 14.5 % (11.5-17.5)
[2020-11-05 13:57] LABS: Anion Gap 12.3 mEq/L (5-15); Blood Urea Nitrogen 24 mg/dl (9-20); Calcium 9.7 mg/dl (8.4-10.2); Carbon Dioxide 26 mmol/L (22.0-30.0); Chloride 102 mmol/L (98-107); Estimated Glomerular Filt Rate 78 ml/min (>60); GFR (African American) 95 ML/MIN (>60); Glucose 98 mg/dl (74-100); Potassium 4.3 mmoL/L (3.5-5.1); Sodium 136 mmol/L (136-145)
[2020-11-05 14:36] LABS: Coronavirus 19 IgG Antibody Positive (Negative); Coronavirus 19 IgM Antibody Negative (Negative)
== END ==
PROVIDERS: Visit Provider Urology
DX: Z01.812 Encounter for preprocedural laboratory examination (principal); Z20.822 Contact with and (suspected) exposure to COVID-19; Z86.16 Personal history of COVID-19; N23 Unspecified renal colic; N20.1 Calculus of ureter
CPT/HCPCS: 36415; 80048; 85025; 86328

== ENCOUNTER 2020-11-07 07:24 | Day surgery (SDC) | payer BC, SELFPAY ==
[2020-11-05 09:13] VITALS: BMI 33.0
[2020-11-07] VITALS (10 sets, daily range): BP systolic 125–136; BP diastolic 74–87; PULSE 55–72; RESP 18; TEMP 36.2–36.6; O2SAT 92–98
--- NOTE | 2020-11-07 08:23 | P.PN_ITS ---
[facility] Anesthesia Checklist - Patient Identification Patient Identification: Arm Band, Verbal (Name & ) - Structural Data Admitted From: Home Planned Operative Procedure/s: eswl Consent for Planned Operative Procedure(s) Verified: Yes Verified Documents: History and Physical - NPO Status Verified Time NPO: 00:00 - Chart Verification Results Verified: CBC, BMP - Additional verifications Patient : No Anesthesia Reactions: No Hx Blood Transfusions: No Blood Transfusion Reaction: No Cephalosporin Allergy: No Previous Colonoscopy: Yes - Cardiovascular Assessment Heart Sounds: S1 & S2 Pulse Strength: Baseline Pulse Rhythm: Regular Peripheral Edema: No - Airway Assessment C-Spine Mobility Assessed: Yes TMJ Mobility Assessed: Yes Dentition: Dentures-good fit - Neurological Assessment Level of Consciousness: Awake, Alert, Appropriate Hx Seizures: No Numbness or tingling in extremities: No - Anesthesia Plan Anesthesia Risk discussed: Yes Anesthesia Plan: Verified ASA Class: III Anesthesia Type: General [facility] History I have reviewed the patient's past medical history: Yes Medical History: Reports:: Hypertension, Lung Disease, Kidney Stones Denies:: Cancer, Diabetes Mellitus Type 1, Diabetes Mellitus Type 2, Internal Pacemaker, MRSA, Seizures *Have you ever received a pneumonia vaccine?: No *Have you received a flu vaccine this season?: No Other Medical History: Denies: Blood Transfusion Reaction Anesthesia experience/problems:: none Other Surgeries: Yes: Colonoscopy, Hernia Repair. No: Pacemaker Amputation: No Fractures: No - *Social History Last grade of school completed: High school graduate Smoking Status: Former smoker Tobacco Type: cigarettes #Yrs smoked (if former smoker): 30 Alcohol Intake: current Alcohol Intake Frequency:: holidays/special occasions only Substance Use Type: denies use *Occupational Status:: employed Housing: house Household Members: family *Travel in the last 8 weeks: None Family Hx:: Heart Attack, Hypertension
--- NOTE | 2020-11-07 09:58 | HMH.ANESI ---
[facility] Anesthesia Record Part I Intake, IV Amount: 650 Estimated blood loss (mL): 0 Urine output (mL): 0 Blood Products used (#): none Blood Pressure: 132/74 SaO2: 92 Pulse Rate: 72 Respiratory Rate: 18 Temperature: 97.1 F Patient is:: Drowsy, Stable Stable to PACU at:: 09:54
--- NOTE | 2020-11-07 11:21 | HMH.ANESII ---
[facility] Anesthesia Record Part II Discharge Time: 10:24 Destination: Surgical Day Care (OP Surgery) PACU nurse assessment reviewed?: Yes Patient Condition:: Good Anesthesia Complications:: None Swallowing reflex intact?: Yes Cyanosis?: No Blood Pressure: 125/75 Pulse Rate: 56 Temperature: 97.8 F Mental Status: Alert & Oriented Pain level:: 0 Nausea and/or vomitting:: None Intake, IV Amount: 35
--- NOTE | 2020-11-07 12:51 | P.OP_ITS ---
Date of procedure: 11/07/20 Pre-op Diagnosis:: 13 mm right kidney stone Post-op Diagnosis:: Same Procedure performed:: Right ESWL Surgeon:: Jose Mulligan MD BIOINFORMATICS SCIENTIST:: Kulwant Harris Anesthesia: GETA Estimated blood loss (mL): 0 Clinical Note:: 85-year-old white male with recent right flank pain noted to have a 13 x 5 mm right proximal ureteral stone. He underwent cystoscopy with right ureteral stone manipulation and right stent placement previously and has been tolerating the stent well. He returns today for definitive management of the stone. Operative findings:: Fluoroscopy reveals the stone is in the right renal pelvis just above the curl of the right stent. ESWL went well and there was good fragmentation of the stone. Operative note:: Patient taken to the operating room after informed consent was obtained. He was placed on the operating table in the supine position and general anesthesia administered. Preoperative antibiotics and sequential compression devices placed. Was positioned and padded appropriately and the ESWL machine was brought into position and under fluoroscopy focused onto the right renal pelvic stone. Total of 3000 shockwaves were delivered to the stone at a maximum energy of 7. During fragmentation fluoroscopy was performed and there was good fragme ntation of the stone. After completion of ESWL no complications were noted. Patient transferred to the recovery room in stable condition. Condition: stable Disposition: same day Specimens:: None Complications:: None
== END 2020-11-07 10:53 | disposition home or self-care (01) ==
LOC: OR 07:25
PROVIDERS: PCP Internal Medicine Adolescent Medicine; Visit Provider Urology
PROC: (CPT 50590; principal; 2020-11-07 08:00)
DX: N20.0 Calculus of kidney (principal); I10 Essential (primary) hypertension; Z87.442 Personal history of urinary calculi; Z79.890 Hormone replacement therapy
CPT/HCPCS: 50590; 96374

== ENCOUNTER → 2020-11-14 12:38 | Outpatient (CLI) | payer BC, SELFPAY ==
--- NOTE | 2020-11-14 12:45 | XR_ITS ---
PROCEDURE: XR KUB CLINICAL INDICATION: kidney stone COMPARISON: CT CT ABDOMEN PELVIS WO CON from 10/26/2020 FINDINGS: There is a right ureteral stent in place with the proximal aspect overlying the right renal pelvis region distal aspect overlying the region of the urinary bladder. Bilateral renal calculi noted. 4 mm calcific density overlies distal aspect of the right ureteral stent consistent with a distal ureteral stone. There are degenerative changes in the lumbar spine with osteophytes present. IMPRESSION: Bilateral nephrolithiasis with right ureteral stent in place with a suspected 4 mm right distal ureteral stone overlying the stent. Dictated by: Saturnino Andrew MD 11/14/2020 14:47 Saturnino Andrew MD in [place] 11/14/2020 14:47
== END ==
PROVIDERS: PCP Internal Medicine Adolescent Medicine; Visit Provider Urology
DX: N23 Unspecified renal colic (principal)
CPT/HCPCS: 74018

== ENCOUNTER → 2020-11-14 16:11 | Outpatient (CLI) | payer BC, SELFPAY ==
[2020-11-22 19:10] LABS: Specimen Type NOT PROVIDED
[2020-11-22 19:11] LABS: Ca oxalate dihydrate 60%; Photo TO FOLLOW
== END ==
PROVIDERS: Visit Provider Urology
DX: N23 Unspecified renal colic (principal)
CPT/HCPCS: 82370

== ENCOUNTER → 2020-11-24 13:04 | Outpatient (CLI) | payer BC, SELFPAY ==
--- NOTE | 2020-11-24 14:06 | XR_ITS ---
PROCEDURE: XR CHEST PORTABLE CLINICAL HISTORY: COVID TESTING COMPARISON: 09/01/2016 two view chest x-ray, 12/12/2019 chest x-ray FINDINGS: There is respiratory motion the exam. Large body habitus. Mild diffuse indistinctness of the hemidiaphragms likely representing secondary to these factors. No definite infiltrate. If further evaluation is needed, upright PA and lateral x-rays in the radiology department may provide additional detail. Cardiac and mediastinal contours are within limits. There is no pneumothorax or pleural effusion. Bony structures are unremarkable. IMPRESSION: Suboptimal image without definite infiltrate. If further evaluation is needed,) obtain lateral x-rays in the Radiology department may give additional detail. Dictated by: Yuli Hurley MD 11/24/2020 15:17 Yuli Hurley MD in [facility] 11/24/2020 15:17
[2020-11-24 14:08] LABS: Adenovirus,PCR Not Detected (NotDetected); Bordetella Pertussis Not Detected (NotDetected); Chlamydophila Pneumoniae, PCR Not Detected (NotDetected); Coronavirus 229E Not Detected (NotDetected); Coronavirus NL63 Not Detected (NotDetected); Coronavirus OC43 Not Detected (NotDetected); Coronovirus HKU1,PCR Not Detected (NotDetected); Human Metapneumovirus Not Detected (NotDetected); Influenza A, PCR Not Detected (NotDetected); Influenza AH1, 2009 Not Detected (NotDetected); Influenza AH1, PCR Not Detected (NotDetected); Influenza AH3,PCR Not Detected (NotDetected); Influenza B, PCR Not Detected (NotDetected); Mycoplasma Pneumoniae, PCR Not Detected (NotDetected); Parainfluenza 1, PCR Not Detected (NotDetected); Parainfluenza 2, PCR Not Detected (NotDetected); Parainfluenza 3, PCR Not Detected (NotDetected); Parainfluenza 4, PCR Not Detected (NotDetected); Respiratory Syncytial Virus Not Detected (NotDetected); Rhinovirus/Enterovirus Not Detected (NotDetected)
[2020-11-24 14:17] LABS: Chloride 100 mmol/L (98-107); Potassium 4.8 mmoL/L (3.5-5.1); Sodium 138 mmol/L (136-145)
[2020-11-24 14:20] LABS: Alanine Aminotransferase 29 U/L (12-78); Albumin Level 4.1 g/dl (3.5-5.0); Albumin/Globulin Ratio 1.3 (1.1-1.8); Alkaline Phosphatase 74 U/L (38-126); Anion Gap 8.8 mEq/L (5-15); Aspartate Amino Transferase 33 U/L (17-59); Bilirubin,Total 0.5 mg/dl (0.2-1.3); Blood Urea Nitrogen 16 mg/dl (9-20); Calcium 9.5 mg/dl (8.4-10.2); Carbon Dioxide 34 mmol/L (22.0-30.0); Estimated Glomerular Filt Rate 70 ml/min (>60); GFR (African American) 85 ML/MIN (>60); Globulin 3.2 g/dL (1.3-3.2); Glucose 112 mg/dl (74-100); Total Protein,Serum 7.3 g/dl (6.3-8.2)
[2020-11-24 15:28] LABS: Basophils # 0.1 K/mm3 (0-0.2); Basophils % 1.6 % (0.1-2.0); Eosinophils # 0.1 K/mm3 (0.0-0.4); Eosinophils % 1.7 % (0.1-12.0); Hematocrit 51.1 % (42.0-52.0); Hemoglobin 16.7 g/dL (14.1-18.0); Lymphocytes # 1.3 K/mm3 (0.7-4.5); Lymphocytes % 21.8 % (10-50); Mean Corpuscular HGB Conc 32.6 g/dL (31.8-35.4); Mean Corpuscular Hemoglobin 31.2 pg (27.0-31.2); Mean Corpuscular Volume 95.6 fl (80-94); Mean Platelet Volume 7.9 fl (7.4-10.4); Monocytes # 0.8 K/mm3 (0.1-1.0); Monocytes % 12.4 % (1.7-9.3); Neutrophils # 3.8 K/mm3 (1.8-7.8); Neutrophils % 62.5 % (37.0-80.0); Platelet Count 159 K/mm3 (142-424); Red Blood Count 5.35 M/mm3 (4.60-6.20); White Blood Count 6.1 K/mm3 (4.8-10.8)
[2020-11-25 10:36] LABS: Coronavirus 19, PCR Detected (NotDetected)
== END ==
PROVIDERS: PCP Internal Medicine Adolescent Medicine; Visit Provider Internal Medicine Adolescent Medicine
DX: Z20.822 Contact with and (suspected) exposure to COVID-19 (principal); U07.1 COVID-19; R05 Cough
CPT/HCPCS: 71045; 80053; 85025; 87581; 87633; 87798

== ENCOUNTER → 2021-01-08 10:15 | Outpatient (CLI) | payer BC, SELFPAY ==
[2021-01-08 10:49] LABS: Basophils # 0.1 K/mm3 (0-0.2); Basophils % 0.7 % (0.1-2.0); Eosinophils # 0.1 K/mm3 (0.0-0.4); Eosinophils % 1.1 % (0.1-12.0); Hematocrit 49.3 % (42.0-52.0); Hemoglobin 16.5 g/dL (14.1-18.0); Lymphocytes # 1.5 K/mm3 (0.7-4.5); Lymphocytes % 16.2 % (10-50); Mean Corpuscular HGB Conc 33.4 g/dL (31.8-35.4); Mean Corpuscular Hemoglobin 29.6 pg (27.0-31.2); Mean Corpuscular Volume 88.5 fl (80-94); Mean Platelet Volume 7.3 fl (7.4-10.4); Monocytes # 0.6 K/mm3 (0.1-1.0); Monocytes % 6.5 % (1.7-9.3); Neutrophils # 6.9 K/mm3 (1.8-7.8); Neutrophils % 75.5 % (37.0-80.0); Platelet Count 199 K/mm3 (142-424); Red Blood Count 5.57 M/mm3 (4.60-6.20); Red Cell Distribution Width 14.2 % (11.5-17.5); White Blood Count 9.2 K/mm3 (4.8-10.8)
[2021-01-08 11:33] LABS: Alanine Aminotransferase 29 U/L (12-78); Albumin Level 4.2 g/dl (3.5-5.0); Albumin/Globulin Ratio 1.7 (1.1-1.8); Alkaline Phosphatase 75 U/L (38-126); Anion Gap 13.4 mEq/L (5-15); Aspartate Amino Transferase 31 U/L (17-59); Bilirubin,Total 0.8 mg/dl (0.2-1.3); Blood Urea Nitrogen 18 mg/dl (9-20); Calcium 9.4 mg/dl (8.4-10.2); Carbon Dioxide 24 mmol/L (22.0-30.0); Chloride 106 mmol/L (98-107); Chol/HDL Ratio 5.8 (1-3.5); Cholesterol 173 mg/dl (140-200); Estimated Glomerular Filt Rate 88 ml/min (>60); GFR (African American) 107 ML/MIN (>60); Globulin 2.5 g/dL (1.3-3.2); Glucose 103 mg/dl (74-100); HDL Cholesterol 30 mg/dl (40-60); Potassium 4.4 mmoL/L (3.5-5.1); Sodium 139 mmol/L (136-145); Total Protein,Serum 6.7 g/dl (6.3-8.2); Triglycerides 101 mg/dl (30-150); VLDL Cholesterol 20 mg/dL (0-40)
[2021-01-08 11:45] LABS: Direct LDL Cholesterol 111.85 mg/dL (100-129)
[2021-01-08 11:52] LABS: 25-OH Vitamin D, Total 28.3 ng/mL (30-100)
[2021-01-08 12:05] LABS: Prostate Specific Ag Screen 4.6 ng/ml (0.0-4.0)
[2021-01-08 12:24] LABS: Vitamin B12 583 pg/mL (239-931)
[2021-01-10 19:13] LABS: Thyroid Peroxidase Antibodies 16 IU/mL (0-34)
[2021-01-12 13:03] LABS: Testosterone, Total, LC/MS 245.3 ng/dL (264.0-916.0); Testosterone,Free 9.3 pg/mL (7.2-24.0)
== END ==
PROVIDERS: Visit Provider Internal Medicine Adolescent Medicine
DX: D72.829 Elevated white blood cell count, unspecified (principal); E03.9 Hypothyroidism, unspecified; E78.5 Hyperlipidemia, unspecified; E29.1 Testicular hypofunction
CPT/HCPCS: 36415; 80053; 80061; 82306; 82607; 84402; 84403; 84436; 84443; 84479; 85025; 86376; G0103

== ENCOUNTER → 2021-02-02 15:26 | Outpatient (CLI) | payer BC, SELFPAY ==
--- NOTE | 2021-02-02 15:32 | XR_ITS ---
PROCEDURE: XR KUB CLINICAL INDICATION: kidney stone COMPARISON: CT CT ABDOMEN PELVIS WO CON from 10/26/2020 FINDINGS: There are small bilateral renal calculi measuring 4 mm on the right and 7 mm on the left. No definite ureteral calculus apparent. Seminal vesicle calcification noted. Degenerative changes are present in the lumbar spine. IMPRESSION: Nephrolithiasis Dictated by: Saturnino Andrew MD 02/02/2021 16:39 Saturnino Andrew MD in [facility] 02/02/2021 16:39
== END ==
PROVIDERS: PCP Internal Medicine Adolescent Medicine; Visit Provider Urology
DX: N20.0 Calculus of kidney (principal)
CPT/HCPCS: 74018

== ENCOUNTER 2021-06-12 15:49 | Emergency (ER) | payer BC, SELFPAY ==
[2021-06-12] VITALS (7 sets, daily range): BP systolic 117–141; BP diastolic 70–77; PULSE 62–87; RESP 16–18; TEMP 36.9; O2SAT 95–98; BMI 31.5
--- NOTE | 2021-06-12 15:46 | ECG_ITS ---
APPROVED REPORT Exam: Resting ECG HR:71 bpm ECG Measurements Heart Rate 71 AXES IA 160 P 71 QRSd 90 QRS 31 QT 382 T 45 QTc 415 Conclusion Normal sinus rhythm Normal ECG Electronically signed by : Kulwant Rojas MD 06/15/2021 20:58:58
--- NOTE | 2021-06-12 15:52 | HMH.EDGENADL ---
ED Disposition Clinical Impression: Chest pain Qualifiers: Chest pain type: unspecified Qualified Code(s): R07.9 - Chest pain, unspecified Pneumonia Qualifiers: Pneumonia type: due to unspecified organism Laterality: left Lung location: lower lobe of lung Qualified Code(s): J18.9 - Pneumonia, unspecified organism Disposition: Home, Self-Care Condition on Discharge: Good Prescriptions: Azithromycin 250 mg PO DAILY 5 Days #6 tab Transmission Status[facility] Doxycycline Hyclate [Doxycycline 50mg Tablet] 100 mg PO BID #20 tab Transmission Status: Pending to [facility] Referrals: Kulwant Rojas MD [Primary Care Provider] - - Critical Care Critical Care Time: No Attestation: On , the high probability of a clinically significant, sudden or life threatening deterioration of the following system(s) required my full and direct attention, intervention and personal management. The time I documented below is in addition to time spent performing reported procedures but includes the following listed in this critical care notation. Medical Decision Making - Medical Records Medical records reviewed: Yes: I reviewed the patient's medical records. - Hugo Inquiry Pt receiving controlled substance: No Vital Signs: 06/12/21 15:50 06/12/21 16:00 06/12/21 16:30 Temperature 98.4 F Temperature Source Oral Pulse Rate 69 71 Pulse Rate [Right] 87 Respiratory Rate 16 16 16 Blood Pressure 125/77 123/71 Blood Pressure [Right Arm] 141/74 H Blood Pressure Mean 93 88 Blood Pressure Mean [Right Arm] 96 02 Sat by Pulse Oximetry 97 97 95 Oxygen Delivery Method Room Air 06/12/21 17:01 06/12/21 17:30 06/12/21 18:00 Temperature Temperature Source Pulse Rate 69 62 62 Pulse Rate [Right] Respiratory Rate 18 18 18 Blood Pressure 132/70 122/77 117/72 Blood Pressure [Right Arm] Blood Pressure Mean 78 88 88 Blood Pressure Mean [Right Arm] 02 Sat by Pulse Oximetry 95 96 98 Oxygen Delivery Method - Lab Data Lab Results 06/12/21 15:58: WBC 11.5 H, RBC 5.29, Hgb 16.6, Hct 49.6, MCV 93.7, MCH 31.3 H, MCHC 33.4, RDW 14.5, Plt Count 210, MPV 8.1, Neut % (Auto) 66.6, Lymph % (Auto) 22.7, [place] % (Auto) 8.2, Eos % (Auto) 1.6, Baso % (Auto) 0.9, Neut # (Auto) 7.6, Lymph # (Auto) 2.6, [place] # (Auto) 0.9, Eos # (Auto) 0.2, Baso # (Auto) 0.1 06/12/21 15:58: Sodium 138, Potassium 3.8, Chloride 101, Carbon Dioxide 27, Anion Gap 13.8, BUN 15, Creatinine 0.90, Estimated Creat Clear 134, Estimated GFR 88, Est GFR ( Amer) 107, Glucose 87, Calcium 9.2, Troponin I < 0.01 06/12/21 18:59: Troponin I < 0.01 Result diagrams: 06/12/21 15:58 06/12/21 15:58 Orders (Tests/Meds): ORDERS Category Date Time Status Troponin I Q3H Lab 06/12/21 22:00 Ordered Medical Decision Narrative: 55-year-old male presents the ED today for evaluation of chest pain. Patient is well-appearing on initial evaluation, nontachycardic EKG visualize shortly after arrival with no evidence of T wave inversion or ST change. Differential diagnosis includes coronary artery disease, pneumonia, pneumothorax, esophageal reflux. Will evaluate further with CBC CMP, troponin, chest x-ray. Serial hour 3-hour troponin is obtained and without delta, patient also has a pneumonia as read by radiology on x-ray. Given this we will treat outpatient with doxycycline and azithromycin for 5 days. Patient instructed on the use and side effects of these medications. 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 General Adult HPI - General Stated complaint: chest pain Time Seen by Provider: 06/12/21 15:52 - History of Present Illness HPI narrative:
--- NOTE | 2021-06-12 15:56 | XR_ITS ---
PROCEDURE INFORMATION: Exam: XR Chest Exam date and time: 06/12/2021 3:56 PM Age: 55 years old Clinical indication: Other: Chest pain TECHNIQUE: Imaging protocol: XR of the chest. Views: 1 view. Portable AP exam 4:31 p.m. COMPARISON: CR XR CHEST PORTABLE 11/24/2020 2:53 PM FINDINGS: Lungs: Mild hypoventilation/low lung volumes. Hazy central and lower pulmonary interstitial prominence, increased compared with 11/24/2020. No focal consolidation. Pleural spaces: Unremarkable. No significant pleural effusion. No pneumothorax. Heart/Mediastinum: Cardiac silhouette appears borderline enlarged, but is accentuated due to portable AP technique. No significant interval change. Bones/joints: There are spinal degenerative changes, with multilevel disc narrrowing and spondylosis. Bilateral acromioclavicular arthritis worse on the right. 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 IMPRESSION: 1. Mild hypoventilation/low lung volumes, and slightly increased hazy central and lower pulmonary interstitial prominence compared with 11/24/2020. Correlate for mild vascular congestion, versus bronchitis and interstitial pneumonia. 2. No focal consolidation. 3. Additional nonemergency and chronic findings as above.
[2021-06-12 16:16] LABS: Basophils # 0.1 K/mm3 (0-0.2); Basophils % 0.9 % (0.1-2.0); Eosinophils # 0.2 K/mm3 (0.0-0.4); Eosinophils % 1.6 % (0.1-12.0); Hematocrit 49.6 % (42.0-52.0); Hemoglobin 16.6 g/dL (14.1-18.0); Lymphocytes # 2.6 K/mm3 (0.7-4.5); Lymphocytes % 22.7 % (10-50); Mean Corpuscular HGB Conc 33.4 g/dL (31.8-35.4); Mean Corpuscular Hemoglobin 31.3 pg (27.0-31.2); Mean Corpuscular Volume 93.7 fl (80-94); Mean Platelet Volume 8.1 fl (7.4-10.4); Monocytes # 0.9 K/mm3 (0.1-1.0); Monocytes % 8.2 % (1.7-9.3); Neutrophils # 7.6 K/mm3 (1.8-7.8); Neutrophils % 66.6 % (37.0-80.0); Platelet Count 210 K/mm3 (142-424); Red Blood Count 5.29 M/mm3 (4.60-6.20); Red Cell Distribution Width 14.5 % (11.5-17.5); White Blood Count 11.5 K/mm3 (4.8-10.8)
[2021-06-12 16:17] LABS: Chloride 101 mmol/L (98-107); Potassium 3.8 mmoL/L (3.5-5.1); Sodium 138 mmol/L (136-145)
[2021-06-12 16:20] LABS: Blood Urea Nitrogen 15 mg/dl (9-20); Creatinine Clearance Estimated 134 mL/min (50-200); Estimated Glomerular Filt Rate 88 ml/min (>60); GFR (African American) 107 ML/MIN (>60)
[2021-06-12 16:21] LABS: Anion Gap 13.8 mEq/L (5-15); Calcium 9.2 mg/dl (8.4-10.2); Carbon Dioxide 27 mmol/L (22.0-30.0); Glucose 87 mg/dl (74-100)
[2021-06-12 16:35] LABS: Troponin I < 0.01 ng/ml (0.00-0.034)
[2021-06-12 19:28] LABS: Troponin I < 0.01 ng/ml (0.00-0.034)
== END 2021-06-12 20:03 | disposition home or self-care (01) ==
PROVIDERS: Emergency Provider Student in an Organized Health Care Education/Training Program; PCP Internal Medicine Adolescent Medicine
DX: J18.9 Pneumonia, unspecified organism (principal); I10 Essential (primary) hypertension; Z87.442 Personal history of urinary calculi; Z87.891 Personal history of nicotine dependence
CPT/HCPCS: 36415; 71045; 80048; 84484; 85025; 93005; 99283

== ENCOUNTER → 2022-03-05 10:50 | Outpatient (CLI) | payer BC, SELFPAY ==
--- NOTE | 2022-03-05 10:57 | XR_ITS ---
FINAL REPORT CLINICAL HISTORY: Right-sided chest wall pain, cough. 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 Pneumoconiosis COMPARISON: June 12, 2021 FINDINGS: PA and lateral views of the chest were obtained. The cardiac and mediastinal silhouettes are within normal limits. There is right lower lobe atelectasis. The lungs are otherwise clear. There is no pleural effusion or pneumothorax. No acute osseous abnormality is identified. IMPRESSION: Right lower lobe atelectasis, lungs are otherwise clear. Reviewed, Interpreted and Dictated by Areli Beard MD Transcribed by Elodia Jackson Authenticated by Areli Beard MD on 03/05/2022 01:05:10 PM [facility]
--- NOTE | 2022-03-05 10:57 | XR_ITS ---
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 There is no other acute right rib abnormality. There is no pneumothorax or pleural fluid collection. IMPRESSION: Negative right rib series. No pneumothorax. Reviewed, Interpreted and Dictated by Areli Beard MD Transcribed by Elodia Jackson Authenticated by Areli Beard MD on 03/05/2022 12:54:39 PM [facility]
[2022-03-05 11:50] LABS: Basophils % 0.4 % (0.1-2.0); Eosinophils # 0.1 K/mm3 (0.0-0.4); Eosinophils % 1.2 % (0.1-12.0); Hematocrit 49.2 % (42.0-52.0); Lymphocytes # 1.6 K/mm3 (0.7-4.5); Lymphocytes % 16.1 % (10-50); Mean Corpuscular HGB Conc 34.5 g/dL (31.8-35.4); Mean Corpuscular Hemoglobin 31.2 pg (27.0-31.2); Mean Corpuscular Volume 90.5 fl (80-94); Mean Platelet Volume 7.5 fl (7.4-10.4); Monocytes % 9.4 % (1.7-9.3); Neutrophils # 7.4 K/mm3 (1.8-7.8); Neutrophils % 72.9 % (37.0-80.0); Platelet Count 160 K/mm3 (142-424); Red Blood Count 5.43 M/mm3 (4.60-6.20); Red Cell Distribution Width 14.1 % (11.5-17.5); White Blood Count 10.1 K/mm3 (4.8-10.8)
[2022-03-05 12:11] LABS: Alanine Aminotransferase 30 U/L (12-78); Albumin Level 3.7 g/dl (3.5-5.0); Albumin/Globulin Ratio 1.4 (1.1-1.8); Alkaline Phosphatase 80 U/L (38-126); Anion Gap 10.3 mEq/L (5-15); Aspartate Amino Transferase 35 U/L (17-59); Bilirubin,Total 0.5 mg/dl (0.2-1.3); Blood Urea Nitrogen 14 mg/dl (9-20); Calcium 8.9 mg/dl (8.4-10.2); Carbon Dioxide 29 mmol/L (22.0-30.0); Chloride 102 mmol/L (98-107); Chol/HDL Ratio 6.6 (1-3.5); Cholesterol 159 mg/dl (140-200); Estimated Glomerular Filt Rate 88 ml/min (>60); GFR (African American) 106 ML/MIN (>60); Globulin 2.6 g/dL (1.3-3.2); Glucose 96 mg/dl (74-100); HDL Cholesterol 24 mg/dl (40-60); Potassium 4.3 mmoL/L (3.5-5.1); Sodium 137 mmol/L (136-145); Total Protein,Serum 6.3 g/dl (6.3-8.2); Triglycerides 107 mg/dl (30-150); VLDL Cholesterol 21 mg/dL (0-40)
[2022-03-05 12:22] LABS: Direct LDL Cholesterol 109.36 mg/dL (100-129)
[2022-03-05 12:29] LABS: Free Thyroxine Index 2.9 ug/dL (5.93-13.13); T4 (Thyroxine) 8.3 ug/dl (5.53-11.0); Triiodothryronine (T3) Uptake 35 % (23.5-40.5)
[2022-03-05 12:30] LABS: 25-OH Vitamin D, Total 31.7 ng/mL (30-100)
[2022-03-05 12:41] LABS: Prostate Specific Ag Screen 6.1 ng/ml (0.0-4.0)
[2022-03-05 12:43] LABS: Thyroid Stimulating Hormone 2.67 uIU/mL (0.465-4.68)
[2022-03-05 13:01] LABS: Vitamin B12 570 pg/mL (239-931)
[2022-03-06 09:23] LABS: Testosterone,Total 410 ng/dL (264-916)
[2022-03-13 20:47] LABS: PSA, Free 1.05; Prostate Specific Ag 5.9
== END ==
PROVIDERS: PCP Internal Medicine Adolescent Medicine; Visit Provider Internal Medicine Adolescent Medicine
DX: R07.89 Other chest pain (principal); R05.9 Cough, unspecified; J60 Coalworker's pneumoconiosis; E03.9 Hypothyroidism, unspecified; E29.1 Testicular hypofunction; R97.20 Elevated prostate specific antigen [PSA]; E66.9 Obesity, unspecified; Z68.35 Body mass index [BMI] 35.0-35.9, adult
CPT/HCPCS: 36415; 71046; 71100; 80053; 80061; 82306; 82607; 84153; 84154; 84403; 84436; 84443; 84479; 85025; G0103

== ENCOUNTER → 2022-04-02 15:20 | Outpatient (CLI) | payer BC, SELFPAY ==
--- NOTE | 2022-04-02 15:23 | MR_ITS ---
PROCEDURE INFORMATION: Exam: MR Lumbar Spine Without and With Contrast Exam date and time: 04/02/2022 4:12 PM Age: 56 years old Clinical indication: Low back pain; Prior surgery; Surgery date: 6+ months; Additional info: RT sided sciatica. Prior back surgery 2019. Right sided low back pain. 20ml prohance given. TECHNIQUE: Imaging protocol: Magnetic resonance imaging of the lumbar spine without and with contrast. Contrast material: PROHANCE; Contrast volume: 20 ml; Contrast route: IV; COMPARISON: MR LUMBAR SPINE WO CON 08/09/2020 8:48 AM FINDINGS: Bones/joints: See L3-L4 finding. Spinal cord: The conus extends inferiorly to the level of L1. T12-L1: Less than 2 mm disc bulge. L1-L2: No significant disc disease. No significant spinal canal stenosis. No neural foraminal stenosis. L2-L3: 4-5 mm left lateral disc protrusion and osteophytic ridge. moderate left neural foraminal stenosis. L3-L4: 2.5-3 mm broad based on lateral combined disc bulge and osteophytic ridge. Findings stable. Moderately severe right lateral recess and neural foraminal stenosis secondary to accompanying ligamentum flavum and facet hypertrophy. (series 2, image number 4) L4-L5: 3-3.5 mm broad based on lateral combined disc bulge and osteophytic ridge. Moderate bilateral lateral recess and mild-moderate bilateral neural foraminal stenosis. Degree of foraminal narrowing greatest on the left at this level. L5-S1: Persistent mild-moderate facet hypertrophy. Findings unchanged. No evidence of spinal or neural foraminal stenosis. Soft tissues: Unremarkable. Kidneys and ureters: Incomplete visualization of 10 mm left renal cyst. Other findings: No findings to suggest arachnoid adhesions following contrast administration. IMPRESSION: 1. 4-5 mm left lateral disc protrusion and osteophytic ridge at L2-3. Moderate left neural foraminal stenosis. 2. 2.5-3 mm broad based on lateral combined disc bulge and osteophytic ridge at L3-4. Moderately severe right lateral recess and neural foraminal stenosis. Potential for right-sided nerve impingement. 3. 3-3.5 mm broad based on lateral combined disc bulge and osteophytic ridge at L4-5. Moderate bilateral lateral recess and mild-moderate bilateral neural foraminal stenosis, greatest on the left. 4. No evidence of arachnoid adhesions.
== END ==
PROVIDERS: PCP Internal Medicine Adolescent Medicine; Visit Provider Internal Medicine Adolescent Medicine
DX: M54.31 Sciatica, right side (principal); M53.82 Other specified dorsopathies, cervical region; M25.512 Pain in left shoulder
CPT/HCPCS: 72158; 76376; A9576

== ENCOUNTER → 2022-07-12 14:55 | Outpatient (CLI) | payer BC, SELFPAY ==
[2022-07-12 15:13] LABS: Adenovirus,PCR Not Detected (NotDetected); Coronavirus 229E Not Detected (NotDetected); Coronavirus NL63 Not Detected (NotDetected); Coronavirus OC43 Not Detected (NotDetected); Coronovirus HKU1,PCR Not Detected (NotDetected); Human Metapneumovirus Not Detected (NotDetected); Influenza A, PCR Not Detected (NotDetected); Influenza AH1, 2009 Not Detected (NotDetected); Influenza AH1, PCR Not Detected (NotDetected); Influenza AH3,PCR Not Detected (NotDetected); Influenza B, PCR Not Detected (NotDetected); Parainfluenza 1, PCR Not Detected (NotDetected); Parainfluenza 2, PCR Not Detected (NotDetected); Parainfluenza 3, PCR Not Detected (NotDetected); Parainfluenza 4, PCR Not Detected (NotDetected); Rhinovirus/Enterovirus Not Detected (NotDetected)
[2022-07-12 15:14] LABS: Bordetella Pertussis Not Detected (NotDetected); Chlamydophila Pneumoniae, PCR Not Detected (NotDetected); Mycoplasma Pneumoniae, PCR Not Detected (NotDetected); Respiratory Syncytial Virus Not Detected (NotDetected)
[2022-07-12 19:32] LABS: Coronavirus 19, PCR Detected (NotDetected)
== END ==
PROVIDERS: PCP Internal Medicine Adolescent Medicine; Visit Provider Internal Medicine Adolescent Medicine
DX: U07.1 COVID-19 (principal); J18.0 Bronchopneumonia, unspecified organism; R05.9 Cough, unspecified
CPT/HCPCS: 87581; 87632; 87798; C9803; U0003; U0005

== ENCOUNTER → 2022-09-25 10:13 | Outpatient (CLI) | payer BC, SELFPAY ==
[2022-09-25 13:19] LABS: Basophils # 0.1 K/mm3 (0-0.2); Eosinophils # 0.2 K/mm3 (0.0-0.4); Eosinophils % 1.7 % (0.1-12.0); Hematocrit 47.6 % (42.0-52.0); Hemoglobin 15.8 g/dL (14.1-18.0); Lymphocytes # 2.2 K/mm3 (0.7-4.5); Mean Corpuscular HGB Conc 33.1 g/dL (31.8-35.4); Mean Corpuscular Volume 93.6 fl (80-94); Mean Platelet Volume 9.4 fl (7.4-10.4); Monocytes # 1.1 K/mm3 (0.1-1.0); Monocytes % 9.5 % (1.7-9.3); Neutrophils # 7.5 K/mm3 (1.8-7.8); Neutrophils % 67.9 % (37.0-80.0); Platelet Count 198 K/mm3 (142-424); Red Blood Count 5.09 M/mm3 (4.60-6.20); Red Cell Distribution Width 14.5 % (11.5-17.5)
[2022-09-25 14:38] LABS: Alanine Aminotransferase 27 U/L (12-78); Albumin Level 4.2 g/dl (3.5-5.0); Albumin/Globulin Ratio 1.7 (1.1-1.8); Alkaline Phosphatase 104 U/L (38-126); Anion Gap 11.4 mEq/L (5-15); Aspartate Amino Transferase 31 U/L (17-59); Bilirubin,Total 0.5 mg/dl (0.2-1.3); Blood Urea Nitrogen 22 mg/dl (9-20); Calcium 9.4 mg/dl (8.4-10.2); Carbon Dioxide 28 mmol/L (22.0-30.0); Chloride 103 mmol/L (98-107); Estimated Glomerular Filt Rate 69 ml/min (>60); GFR (African American) 84 ML/MIN (>60); Globulin 2.5 g/dL (1.3-3.2); Glucose 78 mg/dl (74-100); Potassium 4.4 mmoL/L (3.5-5.1); Sodium 138 mmol/L (136-145); Total Protein,Serum 6.7 g/dl (6.3-8.2)
[2022-09-25 15:09] LABS: Prostate Specific Ag, Diagnost 2.52 ng/ml (0.0-4.0); Thyroid Stimulating Hormone 3.04 uIU/mL (0.465-4.68)
== END ==
PROVIDERS: PCP Internal Medicine Adolescent Medicine; Visit Provider Internal Medicine Adolescent Medicine
DX: E03.9 Hypothyroidism, unspecified (principal); E29.1 Testicular hypofunction; R97.20 Elevated prostate specific antigen [PSA]
CPT/HCPCS: 36415; 80053; 84153; 84443; 85025

== ENCOUNTER → 2023-05-21 11:37 | Outpatient (CLI) | payer BC, SELFPAY ==
--- NOTE | 2023-05-21 11:47 | XR_ITS ---
PROCEDURE INFORMATION: Exam: XR Right Hand Exam date and time: 05/21/2023 11:48 AM Age: 57 years old Clinical indication: Pain; Hand; Right TECHNIQUE: Imaging protocol: Radiologic exam of the right hand. Views: 3 or more views. COMPARISON: No relevant prior studies available. FINDINGS: Bones/joints: Periarticular osteopenia. Subtle marginal erosions at the level of the 2nd 3rd and 4th DIP joints. Soft tissues: Normal. IMPRESSION: 1. No evidence of acute osseous injury. 2. Findings compatible with degenerative osteoarthritis.
== END ==
PROVIDERS: PCP Internal Medicine Adolescent Medicine; Visit Provider Internal Medicine Adolescent Medicine
DX: M79.644 Pain in right finger(s) (principal)
CPT/HCPCS: 73130

== ENCOUNTER 2023-11-29 17:19 | Emergency (ER) | payer BC, SELFPAY ==
[2023-11-29 17:25] VITALS: BP 127/77; PULSE 77; RESP 20; TEMP 36.6; O2SAT 98; BMI 34.4
--- NOTE | 2023-11-29 17:34 | PC.NURSE ---
DR VILCHIS AT BEDSIDE
--- NOTE | 2023-11-29 17:39 | CT_ITS ---
PROCEDURE INFORMATION: Exam: CT Abdomen And Pelvis Without Contrast Exam date and time: 11/29/2023 5:53 PM Age: 58 years old Clinical indication: Abdominal pain; Flank; Left; Additional info: Left flank pain TECHNIQUE: Imaging protocol: Computed tomography of the abdomen and pelvis without contrast. Radiation optimization: All CT scans at this facility use at least one of these dose optimization techniques: automated exposure control; mA and/or kV adjustment per patient size (includes targeted exams where dose is matched to clinical indication); or iterative reconstruction. COMPARISON: CT ABDOMEN PELVIS WO CON 26/10/2020 23:32 FINDINGS: Lungs: Mild scarring and atelectasis in the lower lungs. Coronary arteries: Coronary artery calcifications. Liver: Hepatic steatosis. Gallbladder and bile ducts: Normal. No calcified stones. No ductal dilation. Pancreas: Normal. No ductal dilation. Spleen: Normal. No splenomegaly. Adrenal glands: Normal. No mass. Kidneys and ureters: Left hydronephrosis secondary to a 2-3 mm calculus in the proximal ureter. Nonobstructing bilateral nephrolithiasis. Stomach and bowel: Mild sigmoid diverticulosis without diverticulitis. Appendix: No evidence of appendicitis. Intraperitoneal space: Unremarkable. No free air. No significant fluid collection. Vasculature: The arteries demonstrate mild atherosclerotic disease. Lymph nodes: Unremarkable. No enlarged lymph nodes. Urinary bladder: Unremarkable as visualized. Reproductive: Moderate prostate enlargement. Bones/joints: Unremarkable. No acute fracture. Soft tissues: Postsurgical changes of the right inguinal ring. Tiny fat containing umbilical hernia. Other findings: Stigmata of old granulomatous disease. IMPRESSION: 1. Left hydronephrosis secondary to a 2-3 mm calculus in the proximal ureter. 2. Nonobstructing bilateral nephrolithiasis. 3. Hepatic steatosis.
--- NOTE | 2023-11-29 17:42 | ED_ITS ---
Discharge Plan Disposition Patient Disposition: Home, Self-Care Prescriptions Prescriptions: New ibuprofen 800 mg tablet 800 mg PO TID PRN (Reason: pain) 7 Days Qty: 20 0RF hydrocodone-acetaminophen 5-325 mg tablet 1 tab PO Q6H PRN (Reason: pain) 3 Days Qty: 12 0RF tamsulosin [Flomax] 0.4 mg capsule 0.4 mg PO DAILY 7 Days Qty: 7 0RF ondansetron 4 mg tablet,disintegrating 4 mg PO Q6H PRN (Reason: nausea and vomiting) 5 Days Qty: 20 0RF No Action albuterol sulfate 90 mcg/actuation HFA aerosol inhaler 2 inh inhalation QID PRN (Reason: shortness of breath or wheezing) 90 Days Qty: 8.5 2RF Stiolto Respimat 2.5-2.5 mcg/actuation mist 2 puff inhalation DAILY 90 Days Qty: 4 2RF verapamil 180 MG capsule,ext rel. pellets 24 hr 180 mg PO DAILY valsartan-hydrochlorothiazide 1 EACH tablet 1 each PO DAILY testosterone cypionate 200 MG/ML oil 200 mg IM WEEKLY Referrals Follow up/Referrals: Fausot Williamson MD [Staff Physician] - See instructions Kulwant Rojas MD [Primary Care Provider] - See instructions Activity Restrictions/Add. Instructions Additional Instructions/Restrictions: You have a 3 mm proximal ureteral stone causing hydronephrosis and hydroureter on the left side. Please return with refractory pain refractory nausea vomiting high fevers otherwise you may follow-up with Dr. Williamson if you are not improving. Clinical Impressions Clinical Impression: Hydronephrosis concurrent with and due to calculi of kidney and ureter Discharge ED Provider: Robbie Garcia General Adult HPI General Chief complaint: PAIN Stated complaint: possible kidney stones Time Seen by Provider: 11/29/23 17:33 History of Present Illness HPI narrative: Patient is a 58-year-old male present today with left flank pain which he states is similar to kidney stone pain he had in the past. States he had numerous kidney stones and has had to have surgical intervention twice. Symptoms started yesterday evening starting on his left flank mild has been intermittently severe with associated nausea urine is been a bit darker than normal but no definitive hematuria. No fevers or chills. No other bowel symptoms or any other symptoms respiratory womack or from a chest standpoint. Related Data Home Medications Medication Instructions Recorded Confirmed valsartan 320 1 each PO DAILY blood pressure 02/20/18 11/09/23 mg-hydrochlorothiazide 12.5 mg tablet verapamil 180 mg 24 hr 180 mg PO DAILY blood pressure 02/20/18 11/09/23 capsule,extended release testosterone cypionate 200 mg/mL 200 mg IM WEEKLY REPLACEMENT 10/27/20 11/09/23 intramuscular oil THERAPY Previous Rx's Medication Instructions Recorded albuterol sulfate 90 mcg/actuation 2 inh inhalation QID PRN shortness 11/09/23 aerosol inhaler of breath or wheezing 90 days #8.5 grams tiotropium 2.5 mcg-olodaterol 2.5 2 puff inhalation DAILY 90 days #4 11/10/23 mcg/actuation mist for inhalation grams (Stiolto Respimat) hydrocodone 5 mg-acetaminophen 325 1 tab PO Q6H PRN pain 3 days #12 11/29/23 mg tablet tabs ibuprofen 800 mg tablet 800 mg PO TID PRN pain 7 days #20 11/29/23 tabs ondansetron 4 mg disintegrating 4 mg PO Q6H PRN nausea and 11/29/23 tablet vomiting 5 days #20 tabs tamsulosin 0.4 mg capsule (Flomax) 0.4 mg PO DAILY 7 days #7 caps 11/29/23 Allergies Allergy/AdvReac Type Severity Reaction Status Date / Time No Known Allergies Allergy Verified 11/09/23 13:30 [facility] Disclaimer: The information contained in this section may have been updated after the patient was seen, as this information can be updated by other users. Medical History (Updated 11/29/23 @ 17:42 by Robbie Garcia MD) Anthracosilicosis Black lung disease Dyspnea on exertion Hilar lymphadenopathy Hypertension ILD (interstitial lung disease) Mediastinal lymphadenopathy Surgical History (Updated 11/09/23 @ 13:38 by Malika Crow) History of hernia surgery History of lumbar surgery Family History Other Cancer Heart attack Social History Smoking Status: Never smoker alcohol intake: current substance use type: denies use current occupational status: employed Travel in the last 8 weeks: None household members: family housing: house caffeine: Yes ROS Obtained: Yes All systems reviewed & no additional complaints except as documented Physical Exam General General appearance: alert Respiratory Respiratory exam: Present normal lung sounds bilaterally Cardiovascular Cardiovascular exam: Present regular rate Abdominal Exam Abdominal exam: Present soft; Absent distention or tenderness Back Exam Back exam: Absent CVA tenderness (R) or CVA tenderness (L) Neurological Exam Neurological exam: Present alert Medical Decision Making Hugo Inquiry Pt receiving controlled substance: No Vital Signs: 11/29/23 17:25 11/29/23 18:00 Temperature 97.9 F Temperature Source Oral Pulse Rate 72 Pulse Rate [Right] 77 Respiratory Rate 20 20 Blood Pressure 121/79 Blood Pressure [Right Arm] 127/77 Blood Pressure Mean 93 Blood Pressure Mean [Right Arm] 93 02 Sat by Pulse Oximetry 98 96 Oxygen Delivery Method Room Air Lab Data Lab results reviewed: Yes I reviewed the patient's lab results. Lab Results 11/29/23 17:25: Urine Color Yellow, Urine Appearance Clear, Urine pH 5.5, Ur Specific [place] >= 1.030, Urine Protein Negative, Urine Glucose (UA) Negative, Urine Ketones 1+, Urine Blood 3+, Urine Nitrate Negative, Urine Bilirubin Negative, Urine Urobilinogen 0.2, Ur Leukocyte Esterase Negative, Urine RBC 20- 50, Urine WBC None, Ur Squamous Epith Cells Occasional, Urine Bacteria Trace 11/29/23 17:28: WBC 9.9, RBC 5.97, Hct 57.5 H, MCV 96.3 H, MCH 30.9, MCHC 32.1, RDW 14.3, Plt Count 168, MPV 8.4, Neut % (Auto) 69.7, Lymph % (Auto) 21.0, [place] % (Auto) 8.1, Eos % (Auto) 0.7, Baso % (Auto) 0.6, Neut # (Auto) 6.9, Lymph # (Auto) 2.1, [place] # (Auto) 0.8, Eos # (Auto) 0.1, Baso # (Auto) 0.1, Sodium 139, Potassium 4.2, Chloride 103, Carbon Dioxide 30, Anion Gap 10.2, BUN 24 H, Creatinine 1.30 H, Estimated Creat Clear 98, Estimated GFR 57 L, Est GFR ( Amer) 69, Glucose 91, Calcium 9.8, Total Bilirubin 1.2, AST 43, ALT 42, Alkaline Phosphatase 80, Total Protein 8.2, Albumin 4.8, Globulin 3.4 H, Albumin/Globulin Ratio 1.4 11/29/23 17:28 11/29/23 17:28 Orders (Tests/Meds): ED MEDICATIONS Generic Name Dose Route Start Last Admin Trade Name Freelvin PRN Reason Stop Dose Admin Lactated Ringer's 1,000 mls @ 999 mls/hr 11/29/23 17:45 11/29/23 18:00 Lactated Ringer's 1000 Ml Bag IV 11/29/23 18:45 999 mls/hr .Q1H1M KULDIP Administration Discontinued Medications Generic Name Dose Route Start Last Admin Trade Name Freq PRN Reason Stop Dose Admin Ketorolac Tromethamine 15 mg 11/29/23 17:39 11/29/23 18:00 Ketorolac 30mg/Ml Vial IV 11/29/23 17:40 15 mg ONCE ONE Administration Ondansetron HCl 4 mg 11/29/23 17:39 11/29/23 18:00 Ondansetron 4mg/2ml Vial IV 11/29/23 17:40 4 mg ONCE ONE Administration ORDERS Category Date Time Status CT abdomen pelvis wo con Stat Cat Scan 11/29/23 17:39 Completed CBC w/Auto Diff [Complete Blood Count Auto Diff] Stat Lab 11/29/23 17:28 Results CMP [Comprehensive Metabolic Panel] Stat Lab 11/29/23 17:28 Completed UA [Urinalysis and Microscopic] Stat Lab 11/29/23 17:25 Completed Medical Decision Narrative: 58-year-old male presented with left flank pain consistent with kidney symptoms in the past. Differential includes obstructing kidney stone, pyelonephritis, constipation, AAA etc. Will reassess after CT scan labs IV fluids pain medicine nausea medicine. Reassessment 6:29 PM patient is feeling better symptoms controlled. Urinalysis unremarkable no evidence of infection. CT scan performed which I personally interpreted shows a 3 mm proximal ureteral stone with hydronephrosis and hydroureter. Patient's been given referral to our urologist return precautions emphasized patient was discharged with opiates NSAIDs Zofran and Flomax and a urine strainer with return precautions and follow-up instructions emphasized patient discharged in stable and improved condition Critical Care Critical Care Time Critical Care Time: No
[2023-11-29 17:54] LABS: Microscopic, Urine URINE MICROSCOPIC (MICROSCOPIC)
[2023-11-29 18:00] VITALS: BP 121/79; PULSE 72; RESP 20; O2SAT 96
[2023-11-29] MEDS: KETOROLAC 30MG/ML VIAL 15 MG IV (18:00)
[2023-11-29] MEDS: ONDANSETRON 4MG/2ML VIAL 4 MG IV (18:00)
[2023-11-29] MEDS: LACTATED RINGERS 1000ML 1,000 ML 999 ML IV (18:00)
[2023-11-29 18:14] LABS: Chloride 103 mmol/L (98-107); Sodium 139 mmol/L (136-145)
[2023-11-29 18:15] LABS: Potassium 4.2 mmoL/L (3.5-5.1)
[2023-11-29 18:17] LABS: Alanine Aminotransferase 42 U/L (12-78); Albumin Level 4.8 g/dl (3.5-5.0); Albumin/Globulin Ratio 1.4 (1.1-1.8); Alkaline Phosphatase 80 U/L (38-126); Anion Gap 10.2 mEq/L (5-15); Aspartate Amino Transferase 43 U/L (17-59); Bilirubin,Total 1.2 mg/dl (0.2-1.3); Blood Urea Nitrogen 24 mg/dl (9-20); Calcium 9.8 mg/dl (8.4-10.2); Carbon Dioxide 30 mmol/L (22.0-30.0); Creatinine Clearance Estimated 98 mL/min (50-200); Estimated Glomerular Filt Rate 57 ml/min (>60); GFR (African American) 69 ML/MIN (>60); Globulin 3.4 g/dL (1.3-3.2); Glucose 91 mg/dl (74-100); Total Protein,Serum 8.2 g/dl (6.3-8.2)
[2023-11-29 18:20] LABS: Appearance,Urine CLEAR (Clear); Bilirubin,Urine Negative (Negative); Blood, Urine 3+ (Negative); Color,Urine YELLOW (Yellow); Glucose,Urine (UA) Negative (Negative); Ketones,Urine 1+ (Negative); Leukocyte Esterase,Urine Negative (Negative); Nitrate,Urine Negative (Negative); PH,Urine 5.5 (5.0-8.5); Protein,Urine Negative (Negative); Specific Gravity, Urine >= 1.030 (1.005-1.030); Urobilinogen,Urine 0.2 EU/dl (0.2)
[2023-11-29 18:21] LABS: Bacteria,Urine Trace /lpf; RBC,Urine 20-50 #/hpf (0-3); Squamous Epithelial Cell,Urine Occasional #/hpf (0-5)
[2023-11-29 18:25] LABS: Basophils # 0.1 K/mm3 (0-0.2); Basophils % 0.6 % (0.1-2.0); Eosinophils # 0.1 K/mm3 (0.0-0.4); Eosinophils % 0.7 % (0.1-12.0); Hematocrit 57.5 % (42.0-52.0); Lymphocytes # 2.1 K/mm3 (0.7-4.5); Mean Corpuscular HGB Conc 32.1 g/dL (31.8-35.4); Mean Corpuscular Hemoglobin 30.9 pg (27.0-31.2); Mean Corpuscular Volume 96.3 fl (80-94); Mean Platelet Volume 8.4 fl (7.4-10.4); Monocytes # 0.8 K/mm3 (0.1-1.0); Monocytes % 8.1 % (1.7-9.3); Neutrophils # 6.9 K/mm3 (1.8-7.8); Neutrophils % 69.7 % (37.0-80.0); Platelet Count 168 K/mm3 (142-424); Red Blood Count 5.97 M/mm3 (4.60-6.20); Red Cell Distribution Width 14.3 % (11.5-17.5); White Blood Count 9.9 K/mm3 (4.8-10.8)
[2023-11-29 18:29] LABS: Hemoglobin 18.4 g/dL (14.1-18.0)
[2023-11-29 18:30] VITALS: BP 121/74; PULSE 63; RESP 18; TEMP 36.7; O2SAT 96
== END 2023-11-29 18:30 | disposition home or self-care (01) ==
PROVIDERS: Emergency Provider Student in an Organized Health Care Education/Training Program; PCP Internal Medicine Adolescent Medicine
DX: N13.30 Unspecified hydronephrosis (principal); R11.0 Nausea; I10 Essential (primary) hypertension; J84.9 Interstitial pulmonary disease, unspecified
CPT/HCPCS: 74176; 80053; 81001; 85025; 96361; 96374; 96375; 99285; J2405

== ENCOUNTER 2024-02-20 12:44 | Outpatient (CLI) | payer BC, SELFPAY ==
[2024-02-20 13:30] VITALS: PULSE 82; PULSE 86
[2024-02-20] MEDS: ALBUTEROL 0.083% 2.5 MG/3 ML NEB IH (13:30)
== END 2024-02-20 23:59 | disposition home or self-care (01) ==
PROVIDERS: PCP Internal Medicine Adolescent Medicine; Visit Provider Internal Medicine Pulmonary Disease
DX: R06.09 Other forms of dyspnea (principal)
CPT/HCPCS: 94060; 94618; 94640; 94726; 94729

== ENCOUNTER 2024-02-28 16:38 | Outpatient (CLI) | payer BC, SELFPAY ==
--- NOTE | 2024-02-28 16:57 | XR_ITS ---
PROCEDURE INFORMATION: Exam: XR Entire Spine Exam date and time: 02/28/2024 4:59 PM Age: 58 years old Clinical indication: Low back pain and other: Mid and lower backpain; Surgery date: 6+ months; Surgery type: L3 nerve surgery; Patient HX: Mid and lower back pain. Prior surgery at l3; Additional info: Acute mid/low back pain TECHNIQUE: Imaging protocol: XR of the entire spine. Evaluation for scoliosis or surgical evaluation. Views: 6 or more views. COMPARISON: 1. MR LUMBAR SPINE WO/W CON 04/02/2022 4:[address] ABDOMEN PELVIS WO CON 11/29/2023 5:53 PM FINDINGS: Bones/joints: No loss of vertebral body height. There are 6 lumbar type vertebral bodies. Mild degenerative disc disease in the mid to lower thoracic spine. Moderate degenerative disc disease throughout the lumbar spine which is greatest at L3-L4, L4-L5, and L5-L6. [id number]-[id number] lower lumbar spine facet arthropathy. No thoracic or lumbar spine scoliosis. IMPRESSION: 1. Six lumbar type vertebral bodies are present. 2. Mild thoracic spine and moderate lumbar spine degenerative changes. 3. No loss of vertebral body height. 4. No scoliosis.
[2024-02-28 17:19] LABS: Basophils # 0.1 K/mm3 (0-0.2); Basophils % 0.8 % (0.1-2.0); Eosinophils # 0.2 K/mm3 (0.0-0.4); Eosinophils % 1.7 % (0.1-12.0); Hematocrit 49.8 % (42.0-52.0); Hemoglobin 16.7 g/dL (14.1-18.0); Lymphocytes # 2.6 K/mm3 (0.7-4.5); Lymphocytes % 21.4 % (10-50); Mean Corpuscular HGB Conc 33.5 g/dL (31.8-35.4); Mean Corpuscular Hemoglobin 31.7 pg (27.0-31.2); Mean Corpuscular Volume 94.5 fl (80-94); Mean Platelet Volume 8.4 fl (7.4-10.4); Monocytes # 0.7 K/mm3 (0.1-1.0); Monocytes % 5.5 % (1.7-9.3); Neutrophils # 8.6 K/mm3 (1.8-7.8); Neutrophils % 70.6 % (37.0-80.0); Platelet Count 168 K/mm3 (142-424); Red Blood Count 5.26 M/mm3 (4.60-6.20); Red Cell Distribution Width 14.9 % (11.5-17.5); White Blood Count 12.2 K/mm3 (4.8-10.8)
[2024-02-28 17:54] LABS: Alanine Aminotransferase 30 U/L (12-78); Albumin Level 4.4 g/dl (3.5-5.0); Albumin/Globulin Ratio 1.6 (1.1-1.8); Alkaline Phosphatase 74 U/L (38-126); Anion Gap 16.6 mEq/L (5-15); Aspartate Amino Transferase 38 U/L (17-59); Bilirubin,Total 0.9 mg/dl (0.2-1.3); Blood Urea Nitrogen 25 mg/dl (9-20); Carbon Dioxide 26 mmol/L (22.0-30.0); Chloride 100 mmol/L (98-107); Chol/HDL Ratio 5.5 (1-3.5); Cholesterol 181 mg/dl (140-200); Estimated Glomerular Filt Rate 87 ml/min (>60); GFR (African American) 106 ML/MIN (>60); Globulin 2.8 g/dL (1.3-3.2); Glucose 89 mg/dl (74-100); HDL Cholesterol 33 mg/dl (40-60); Potassium 4.6 mmoL/L (3.5-5.1); Sodium 138 mmol/L (136-145); Total Protein,Serum 7.2 g/dl (6.3-8.2); Triglycerides 207 mg/dl (30-150); VLDL Cholesterol 41 mg/dL (0-40)
[2024-02-28 18:05] LABS: Direct LDL Cholesterol 105.78 mg/dL (100-129)
[2024-02-28 18:07] LABS: Hemoglobin A1C 5.4 % (4.0-6.0)
[2024-02-28 18:10] LABS: 25-OH Vitamin D, Total 35.2 ng/mL (30-100)
[2024-02-28 18:25] LABS: Prostate Specific Ag, Diagnost 5.52 ng/ml (0.0-4.0); Thyroid Stimulating Hormone 3.04 uIU/mL (0.465-4.68)
[2024-02-28 18:44] LABS: Vitamin B12 496 pg/mL (239-931)
== END 2024-02-28 23:59 | disposition home or self-care (01) ==
LOC: LAB 16:39
PROVIDERS: PCP Internal Medicine Adolescent Medicine; Visit Provider Internal Medicine Adolescent Medicine
DX: M54.6 Pain in thoracic spine (principal); M47.816 Spondylosis without myelopathy or radiculopathy, lumbar region; R97.20 Elevated prostate specific antigen [PSA]; R53.81 Other malaise; R53.83 Other fatigue; E66.9 Obesity, unspecified; Z68.32 Body mass index [BMI] 32.0-32.9, adult; Z79.899 Other long term (current) drug therapy
CPT/HCPCS: 36415; 72084; 80053; 80061; 82306; 82607; 83036; 84153; 84443; 85025

== ENCOUNTER 2024-03-08 15:24 | Outpatient (CLI) | payer BC, SELFPAY ==
[2024-03-10 11:52] LABS: Testosterone,Total 882 ng/dL (264-916)
== END 2024-03-08 23:59 | disposition home or self-care (01) ==
LOC: LAB 15:25
PROVIDERS: PCP Internal Medicine Adolescent Medicine; Visit Provider Internal Medicine Adolescent Medicine
DX: E29.1 Testicular hypofunction (principal)
CPT/HCPCS: 36415; 84403

== ENCOUNTER 2024-08-22 09:39 | Outpatient (CLI) | payer BC, SELFPAY ==
[2024-08-22 10:25] VITALS: PULSE 61; PULSE 66
[2024-08-22] MEDS: ALBUTEROL 0.083% 2.5 MG/3 ML NEB IH (10:25)
== END 2024-08-22 23:59 | disposition home or self-care (01) ==
LOC: RT 09:39
PROVIDERS: PCP Internal Medicine Adolescent Medicine; Visit Provider Internal Medicine Pulmonary Disease
DX: R06.09 Other forms of dyspnea (principal)
CPT/HCPCS: 94060; 94618; 94640; 94726; 94729; J7613

== ENCOUNTER 2024-12-08 09:57 | Outpatient (CLI) | payer BC, SELFPAY ==
[2024-12-08 12:03] LABS: Prostate Specific Ag, Diagnost < 0.064 ng/ml (0.0-4.0)
== END 2024-12-08 23:59 | disposition home or self-care (01) ==
PROVIDERS: PCP Internal Medicine Adolescent Medicine; Visit Provider Urology
DX: C61 Malignant neoplasm of prostate (principal)
CPT/HCPCS: 36415; 84153

== ENCOUNTER 2025-03-12 09:47 | Outpatient (CLI) | payer BC, SELFPAY ==
--- OUTSIDE RECORDS SUMMARY | 2025-03-12 09:49 | XMS_ITS | Data Portability ---
Author Organization [place] - Nemesio arriaza, [place] [facility] Address [address] [place] [address] Care Team Providers Care Bead Wire Taper Name Role Phone FRANCES WIGGINS Primary Care Provider Assessment Encounter Date Assessment Date Assessment LastModified by Organization Details LastModified Time 08/14/2020 08/14/2020 I think the Mr. Lozano symptomatic from a right L3-4 foraminal/far lateral disc protrusion. He has a classical L3 radiculopathy. He has excruciating pain. He has an absent reflex. He has significant leg/knee weakness. His knees been giving out. Because of all these things, I recommend surgery upfront here. I recommend a far lateral/extrafo raminal microlumbar discectomy using synapse EMG monitoring and spotlight tubular retractor system. I told him this would likely be an outpatient procedure. I told him that he has compression of the dorsal root ganglions so that there is a significant chance he'll still have some paresthesias and some pain after the nerves decompressed for a while. He works at [employer]. He'll need to be out of work for a month or 2. We talked about the risk recurrent herniation. about the risk of having a problem at the same or different level in the future. I told him the risk of a catastrophic complication is very low. I'm going to try to perform the surgery next week because his pain is so severe. He was happy with the plan. [email or web address] Not available 08/14/2020 10:15:06 09/02/2020 09/02/2020 Pt is S/P right L3-4 far lateral lumbar micro discectomy 08/18/2020. Here for staple removal. Incision is well healed. Eileen were removed. Pt is doing well. Tolerated the procedure well. [email or web address] Not available 09/02/2020 16:05:36 09/18/2020 09/18/2020 Mr. Lozano is doing very well after undergoing a far lateral discectomy. Pain is resolved. He works at [employer]. I will get him in for lumbar therapy with work hardening program. He can return to work in 4 weeks. I will see him on a when necessary basis. [email or web address] Not available 09/18/2020 10:22:50 05/04/2022 05/04/2022 A couple of months of right-sided back pain getting better. Diffuse spondylosis on his MRI scan without severe nerve impingement. No radiculopathy. Do not recommend surgery here. We'll have him see Dr. Gray to see if he might be a candidate for injection therapy. We'll have him start some lumbar therapy which traction at home. We will keep his MRI scan a loaded into our PACS system. Follow-up when necessary. He was happy with the plan. [email or web address] Not available 05/04/2022 14:56:41 Plan of Treatment Reminders Order Date Submit Date Provider Last Modified By Organization Details Last Modified Time Details Appointments None record ed. Lab None record ed. Referral None record ed. Procedures None record ed. Surgeries None record ed. Imaging None record ed. Medication Orders None record ed. Patient TargetsNo targets recorded. Patient InstructionsNo instructions recorded. Reason for Referral None Reported. Results Created Date Observation Date Name Description Value Unit Range Abnormal Flag Note LastModifiedBy Organization Detail LastModifiedTime 08/14/2008/09/2020 MRI, lumba r spine , w/o contr ast No observ ation record ed. BARCODE Not Available 2019 12:12:23 08/21/2008/18/2020 fluor oscop y (PROC ) No observ ation record ed. [email or web address] [address], [place], [address], 08/29/2020 13:50:33 04/13/20 22 04/02/2022 MRI, lumba r spine , w/wo contr ast No observ ation record ed. [email or web address] [facility] [address], [place], [address], 05/25/2022 14:46:27 05/03/20 22 04/02/2022 MRI, lumba r spine , w/o contr ast No observ ation record ed. [email or web address] [address], [place], [address], 05/05/2022 13:18:51 Result Notes None recorded. Procedures Surgical History Date Name Laterality Status Provider Name and Address Organization Details Recorded Time 08/18/20 TRANSPEDICULAR SPINAL DECOMPRESSION, LUMBAR (SURG) completed Alena Hand [facility] 09/02/2020 14:55:38 Hernia repair w/mesh completed Yaritza Alfaro [facility] 08/14/2020 09:16:55 Imaging Results None recorded. Procedure Notes None recorded. Medical Equipment None Reported. Allergies No known drug allergies Medications Name Sig Start Date Stop Date Status Note LastModified by Organization Details LastModified Time cyclobenza ming 10 mg tablet TAKE 1 TABLET BY MOUTH THREE TIMES DAILY NEEDED FOR MUSCLE SPASM FOR 5 DAYS active Not Available Not Available No t Available amoxicilli n 500 mg capsule active Not Available Not Available Not Available hydrocodon e 7.5 mg-ibuprof en 200 mg tablet TAKE 1 TO 2 TABLETS BY MOUTH THREE TIMES DAILY FOR PAIN active Not Available Not Available No t Available azithromyc in 250 mg tablet TAKE 2 TABLETS BY MOUTH ON DAY 1 AND THEN TAKE 1 TABLET BY MOUTH ONCE A DAY ON DAY 2 THROUGH DAY 5 active Not Available Not Available No t Available ibuprofen 800 mg tablet active Not Available Not Available Not Available hydrocodon e 5 mg-acetami nophen 325 mg tablet TAKE 1 TABLET BY MOUTH EVERY 6 HOURS FOR 2 DAYS active Not Available Not Available No t Available Verelan 360 mg capsule,ex tended release active Medicatio n Descripti on: verapamil ; Route:ora l; refills:0 Not Available Not Available Not Available prednisone 20 mg tablet active Not Available Not Available Not Available doxycyclin e hyclate 50 mg capsule TAKE 2 CAPSULES BY MOUTH TWICE DAILY active Not Available Not Available No t Available ciprofloxa vaishali 500 mg tablet active Not Available Not Available Not Available omeprazole 40 mg capsule,de layed release active Medicatio n Descripti on: omeprazol e; Route:ora l; refills:0 Not Available Not Available Not Available syringe with needle 3 mL 22 x 1 1/2 USE 1 SYRINGE EVERY 2 WEEKS active Not Available Not Available No t Available levothyrox ine 100 mcg tablet active Medicatio n Descripti on: levothyro xine; Route:ora l; refills:0 Not Available Not Available Not Available verapamil ER 180 mg 24 hr capsule,ex tended release active Not Available Not Available Not Available testostero ne 100 mg/mL intramuscu lar suspension active Medicatio n Descripti on: testoster one; Route:int ramuscula r; refills:0 ; Quantity: 1 solution Not Available Not Available Not Available gabapentin 100 mg capsule active Not Available Not Available Not Available testostero ne cypionate 200 mg/mL intramuscu lar oil INJECT 200MG INTRAMUSC ULARLY EVERY 2 WEEKS active Not Available Not Available No t Available oxycodone- acetaminop hen 7.5 mg-325 mg tablet TAKE 1 TABLET BY MOUTH EVERY 6 HOURS FOR 7 DAYS active Not Available Not Available No t Available propranolo l 20 mg tablet active Not Available Not Available Not Available Percocet 5 mg-325 mg tablet Take 1 tablet every 6 hours by oral route as needed. 2019 active Not Available Not Available Not Avai lable doxycyclin e hyclate 100 mg tablet active Not Available Not Available Not Available finasterid e 5 mg tablet TAKE 1 TABLET BY MOUTH ONCE DAILY active Not Available Not Available No t Available amoxicilli n 875 mg-potassi um clavulanat e 125 mg tablet TAKE 1 TABLET BY MOUTH EVERY 12 HOURS FOR 7 DAYS active Not Available Not Available No t Available Crestor 10 mg tablet Daily active Frequency : daily;Med ication Descripti on: rosuvasta tin; Dosage:1; Route:ora l; refills:5 ; Quantity: 30 tablet Not Available Not Available Not Available tadalafil 5 mg tablet active Not Available Not Available Not Available topiramate 50 mg tablet active Not Available Not Available Not Available valsartan 320 mg-hydroch lorothiazi de 12.5 mg tablet active Not Available Not Available Not Available Fluzone Quad (PF) 60 mcg (15 mcg x 4)/0.5 mL IM syringe PHARMACIS T ADMINISTE RED IMMUNIZAT ION ADMINISTE RED AT TIME OF DISPENSIN G active Not Available Not Available No t Available Vitals Date Recorded Body height Body mass index (BMI) Body weight Heart rate Systolic blood pressure Diastolic blood pressure Provider Name and Address Organization Details Last Updated DateTime 2 177.8 cm 34.3 kg/m2 947490. 58 g 59 /min 139 mm[Hg] 69 mm[Hg] [facility] 2 14:46:13 Date Recorded Body height Body mass index (BMI) Body weight Heart rate Systolic blood pressure Diastolic blood pressure Provider Name and Address Organization Details Last Updated DateTime 0 177.8 cm 33 kg/m2 231104. 25 g 75 /min 146 mm[Hg] 79 mm[Hg] [facility] 0 09:15:43 Social History None recorded. Functional Status Question Answer Note LastModified by Organizat ion Details LastModified Time Do you or have you ever used smokeless tobacco? Currently chews tobacco apurdie Information not available 08/14/2020 Mental Status None recorded. Family History Relationship Description Onset Age of this Age Resolved Age Notes LastModified by Organization Details LastModified Time Unspecified Relation Malignant neoplastic disease apurdie Not available 2019 09:16:22 Unspecified Relation Hypertensive disorder apurdie Not available 2019 09:16:26 Unspecified Relation Heart disease apurdie Not available 2019 09:16:32 Unspecified Relation Cerebrovascu lar accident apurdie Not available 02/2020 09:16:37 Medical History Condition Response Sleep Apnea Y Hypertension Y Past Encounters Encounter ID Performer Location Encounter Start Date Encounter Closed Date Diagnosis/Indication Diagnosis SNOMED-CT Code Diagnosis ICD10 Code Diagnosis Note [id number] LEXUS FARRAR MD [facility] [address] [place] [address] 08/14/2020 08:34:10 08/14/2020 14:40:44 Lumbar disc prolapse with radiculopathy 759844685 M51.16 [id number] LEXUS FARRAR MD [facility] [address] [place] [address] 09/02/2020 15:27:40 09/02/2020 16:08:33 [id number] LEXUS FARRAR MD SURGERY SCHEDULE [address] [place] [address] 09/05/2020 12:56:39 09/05/2020 13:16:31 [id number] LEXUS FARRAR MD [facility] [address] [place] [address] 09/18/2020 09:29:24 09/18/2020 10:23:18 Prolapsed lumbar intervertebral disc 458362446 M51.26 [id number] LEXUS FARRAR MD [facility] [address] [place] [address] 05/04/2022 13:38:36 05/10/2022 13:52:27 Lumbar spondylosis 361173061 M47.896 Health Concerns Section Related Observation LastModified by Organization Detai ls LastModified Time None Recorded Concern Status LastModified by Organization Details LastModified Time None Recorded Advance Directives Directive None Recorded Payers Insurance Date Sequence Insurance Name Policy Number Policy Lang Covered Member ID Lang Member ID Guarantor Name 07/10/2024 1 [employer] [id number] Mario Lozano [id number] 20 Mario Lozano 09/05/2020 2 [employer] [id number] Mario Lozano [id number] 20 Mario Lozano Notes Date Note Type Note Provider Name and Address Organization Details Recorded Time 08/14/2020 text/html I saw Mr. Lozano in the office. He is 54 years old. He's had back pain on off over the years but over the last couple of months she's had excruciating right lower extremity radiculopathy. He has right-sided posterior iliac pain that radiates across the lateral hip into the anterior thigh ending in the knee. He has some paresthesias and numbness down the medial hayden. The numbness does not reach the foot or ankle. He's had weakness in the right knee. He's had to wear her knee brace. His right knee gives out. He's not able to sleep because of the pain. LEXUS FARRAR MD [address] [place], [address], [facility] 08/14/2020 10:16:02 09/18/2020 text/html I saw Mr. Lozano . I performed a right L3-4 far lateral microlumbar discectomy on August 18, 2020. He has a very small amount and numbness in the anterior medial right thigh. He has no pain. He's happy. LEXUS FARRAR MD [facility] [place], [address], [facility] 09/18/2020 10:23:15 05/04/2022 text/html I saw Mr. Lozano in the office. I performed a right L3-4 far lateral microlumbar discectomy on August 18, 2020. He had very severe pain. This has resolved. He is very happy about this. He's had a couple months of some right-sided diffuse mid lumbar pain. It does not radiate distal to the flank area. It does not radiate into the hip her into the lower extremity. He states is not nearly as bad as his problem was last time. He was on vacation at the [facility] last week and it was being relatively sedentary. He states it is a lot better than it was when he had the MRI scan performed recently. He's had no conservative treatment. LEXUS FARRAR MD [facility] [place], [address], [facility] 05/04/2022 14:57:07
--- NOTE | 2025-03-12 09:50 | XR_ITS ---
FINAL REPORT CLINICAL HISTORY: COAL PNEUMOCONIOSIS COMPARISON: 03/05/2022 FINDINGS: PA and lateral views of the chest were obtained. The cardiac and mediastinal silhouettes are within normal limits. The lungs are clear. There is no pleural effusion or pneumothorax. No acute osseous abnormality is identified. IMPRESSION: No radiographic evidence of acute cardiac or pulmonary disease. Reviewed, Interpreted and Dictated by Areli Beard MD Transcribed by Anais Garcias Authenticated and [facility]
== END 2025-03-12 23:59 | disposition home or self-care (01) ==
LOC: RAD 09:48
PROVIDERS: PCP Internal Medicine Adolescent Medicine; Visit Provider Internal Medicine Adolescent Medicine
DX: J60 Coalworker's pneumoconiosis (principal)
CPT/HCPCS: 71046

== ENCOUNTER 2025-04-16 11:16 | Outpatient (CLI) | payer BC, SELFPAY ==
--- OUTSIDE RECORDS SUMMARY | 2024-06-05 12:30 | XMS_ITS ---
Author Organization [facility] Address [address] [place], [place] [address] Care Team Providers Care Driller Hand Name Role Phone Kulwant Rojas Primary Care Provider Mariel Cruz [phone] REASON FOR VISIT 2 wk FU Encounters Encounter Location Date Provider Diagnosis [facility] [address] [place], [place] [address] 06/05/2024 Mariel Cruz Plan Of Treatment No Information Progress Notes * Mario VELASCO MDOB: 7 (59 yo M)Acc No.[id number]:06/05/2024 Progress Notes Patient: Mario WOLFE Provider: Vale Cruz APRN :1965 A ge:58 Y S ex:Male Date:06/05/2024 Address:[address] [place], [id number] Pcp:Kulwant Rojas Subjective: * Chief Complaints: * 1 . 2 wk FU. * Medical History: Objective: * Vitals: Assessment: Plan: * Treatment: * * Electronic signature of Aneesh Cruz APRN on 04/16/2025 at 11:21 AM EDT Sign off status: Pending * Provider: Vale Cruz APRN Date: 0 06/05/2024 Generated for López lo/Anders/eTransmitting on: 0 04/16/2025 11:21 AM EDT
--- OUTSIDE RECORDS SUMMARY | 2025-01-12 17:30 | XMS_ITS ---
Author Organization [facility] Address [address] [place] [address] Care Team Providers Care Medical Transcription Supervisor Name Role Phone Kulwant Rojas Primary Care Provider [phone] Migration, Provider Unavailable Unavailable [facility] Encounter Medications Medication SIG (Take, [...] Active Encounters Encounter Location Date Provider Diagnosis [facility] [address] [place] [address] 01/12/2025 Provider Migration Hypertension, essential I10 Assessments [...] Mario VELASCO MDOB: 7 (59 yo M)Acc No.[id number]:01/12/2025 Patient: Ignacio Mario INFANTE Provider: Kaleigh Blanco :1965 A ge:59 Y S ex:Male Date:01/12/2025 Address:[address] [place], [id number] Pcp:Kulwant Rojas Subjective: * Chief Complaints: * [...] Electronic signature of Prov ider Migration on 04/16/2025 at 11:20 AM EDT Sign off status: Pending * Provider: Kaleigh jansen Migration Date: 0 01/12/2025 Generated for López lo/Anders/Antoniitting on: 0 04/16/2025 11:20 AM EDT
--- OUTSIDE RECORDS SUMMARY | 2025-03-11 06:08 | XMS_ITS ---
Author Organization [facility] Address [address] [place] [address] Care Team Providers Care Respiratory Care Assistant Name Role Phone Kulwant Rojas Primary Care Provider Results Component Value Reference Range Notes CHEST PA & LAT Reviewed date:03/14/2025 03:04:30 PM Interpretation: Performing Lab: Notes/Report: REASON FOR VISIT Imaging Encounters Encounter Location Date Provider Diagnosis [facility] [address] [place] [address] 03/11/[address] [facility] pneumoconiosis J60 Assessments Encounter Date Diagnosis (ICD Code) Assessment Notes Treatment Notes Treatment Clinical Notes Section Notes 03/11/2025 [facility] pneumoconiosis (ICD-10 - J60) Plan Of Treatment No Information Progress Notes * Mario VELASCO MDOB: 7 (59 yo M)Acc No.[id number]:03/11/2025 Patient: Mario WOLFE :1965 A ge:59 Y S ex:Male Address:[address] [place], [place] [address] Subjective: * Chief Complaints: * I maging * Medical History: * Surgical History: * Hospitalization/Major Diagno stic Procedure: * Medications: Objective: * Vitals: * Physical Examination: Assessment: * Assessment: 1. C oal pneumoconiosis - J60 (Primary) Plan: * Treatment: * Procedure Codes: * true * Date: Generated for López lo/Anders/Theresa on: 0 04/16/2025 11:20 AM EDT
--- OUTSIDE RECORDS SUMMARY | 2025-04-16 11:20 | XMS_ITS | Clinical Summary ---
Author Organization [facility] Address [address] [place] [address] Phone Care Team Providers Care Recooperer Name Role Phone Unavailable Primary Care Provider Unavailabl e Allergies No known active allergies Medications verapamiL (VERELAN PM) 180 mg Oral Cap,24 hr Sust Release Pellets 12/24/19 20 Active valsartan-hydr ochlorothiazid e (DIOVAN-HCT) 320-12.5 mg Oral Tablet Active testosterone cypionate (DEPOTESTOTERO NE CYPIONATE) 200 mg/mL IM Oil INJECT 200MG INTRAMUSCULARLY EVERY 2 WEEKS 10/17/19 21 Active Active Problems No known active problems Social History Tobacco Use Types Packs/Day Years Used Date Smoking Tobacco: Never Smokeless Tobacco: Current Chew Tobacco Cessation:Ready to Q uit: Not Asked; Counseling Given: Not Answered Alcohol Use Standard Drinks/Week Comments Yes 0 (1 standard drink = 0.6 oz pur e alcohol) Very Little Sex and Gender Information Value Date Recorded Sex Assigned at Not on file Legal Sex Male 4:29 PM EDT Gender Identity Not on file Sexual Orientation Not on file Obstetrics History Last Filed Vital Signs Vital Sign Reading Time Taken Comments Blood Pressure - - Pulse - - Temperature - - Respiratory Rate - - Oxygen Saturation - - Inhaled Oxygen Concentration - - Weight 104.3 kg (230 lb) 06/27/2023 3:19 PM EDT Height 177.8 cm (5' 10 ) 06/27/2023 3:19 PM EDT Body Mass Index 33 06/27/2023 3:19 PM EDT Plan of Treatment Health Maintenance Due Date Last Done Comments Annual Wellness Exam 1970 DTaP/TDaP/Td (1 - Tdap) 1986 Hepatitis B Vaccine (1 of 3 - 19+ 3-dose series) 1986 Cologuard 2012 Colon Cancer Screening 2012 Colonoscopy 2012 FIT 2012 Sigmoidoscopy 2012 Virtual Colonography 2012 Pneumococcal Vaccine 50+ (1 of 1 - PCV) 2017 Zoster (1 of 2) 2017 COVID-19 Vaccine (3 - season) 2024 01/29/2021, 01/01/2021 Influenza Vaccine (#1) 2025 2, 07/08/2021, 07/10/2020, Additional history exists Meningococcal B Vaccine Aged Out No l onger eligible based on patient's age to complete this topic [facility]
--- OUTSIDE RECORDS SUMMARY | 2025-04-16 11:20 | XMS_ITS | Clinical Summary ---
Author Organization [facility] Address [address] [place] [address] Phone [email or web address] Care Team Providers Care Gambling Cashier Name Role Phone Kulwant Rojas Primary Care Provider Allergies No known active allergies Medications verapamil ER (VERELAN) 180 MG 24 hr capsule 12/24/19 20 Active valsartan (DIOVAN) 160 MG tablet Take 160 mg by mouth 1 (one) time each day. Active albuterol HFA (PROVENTIL HFA;VENTOLIN HFA) 108 (90 Base) MCG/ACT inhaler Inhale 2 puffs every 6 (six) hours if needed for wheezing. Active tadalafil (CIALIS) 5 MG tablet 10/17/19 21 Active testosterone cypionate (DEPO-TESTOTER ONE) 200 MG/ML injection INJECT 1 ML (CC) INTRAMUSCULARLY ONCE EVERY 2 WEEKS 10/17/19 21 Active Active Problems Problem Noted Date Diagnosed Date Other follow-up examination 07/20/2013 Overview (03/08/2018): Essential hypertension 12/02/2011 Overview (03/08/2018): 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 Overview (03/08/2018): Screening for hypertension 10/22/2010 Overview (03/08/2018): Routine general medical exam ination at a health care facility 09/30/2010 Overview (03/08/2018): Disorder of esophagus 06/30/2010 Overview (03/08/2018): Other examination of ears and hearing 07/15/2008 Overview (03/08/2018): Circadian rhythm sleep disorder, 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 Overview (03/08/2018): Other, mixed, or unspecified nondependent drug abuse, unspecified 12/19/2007 Overview (03/08/2018): Lymphocytosis 11/07/2007 Overview (03/08/2018): Other malaise and fatigue 11/07/2007 Overview (03/08/2018): Health examination of defined subpopulation 10/10 Overview (03/08/2018): Immunizations Immunization Administration Dates Next Due Covid-19 (Moderna Castro, 12yrs+) ([id number]) 2020,01/01/2021 Social History Tobacco Use Types Packs/Day Years Used Date Smoking Tobacco: Never Smokeless Tobacco: Current Snuff Intimate Partner Violence Answer Date R ecorded Insults You Not on file 01/21/2021 Threatens You Not on file 01/21/2021 Screams at You Not on file 01/21/2021 Physically Hurt Not on file 01/21/2021 Intimate Partner Violence Score Not on file 01/21/2021 Depression Answer Date Recorded PHQ Total Score 0 11/22/2024 Stress Answer Date Recorded Stress in your Life Not on file 08/13/2024 Dealing with Stress 3 08/13/2024 Sex and Gender Information Value Date Recorded Sex Assigned at Not on file Legal Sex Male 9:55 AM CDT Gender Identity Not on file Sexual Orientation Not on file Last Filed Vital Signs Vital Sign Reading Time Taken Comments Blood Pressure 146/89 11/22/2024 8:37 AM EST Pulse 56 11/22/2024 8:37 AM EST Temperature 36.9 C (98.4 F) 09/09/2021 1:43 PM EST Respiratory Rate 18 11/22/2024 8:37 AM EST Oxygen Saturation 97% 11/22/2024 8:37 AM EST Inhaled Oxygen Concentration - - Weight 101 kg (223 lb) 01/25/2013 3:56 PM CDT Height 177.8 cm (5' 10 ) 01/25/2013 3:56 PM CDT Body Mass Index 32 01/25/2013 3:56 PM CDT Plan of Treatment Health Maintenance Due Date Last Done Comments Dental Cleaning/Exam 1967 HIV Screening 1967 Hepatitis C Screening 1967 Annual Preventive Exam 1985 Hep B Infection Screening - Triple Screen 1985 Hepatitis B Immunization (1 of 3 - 19+ 3-dose series) 1986 Tetanus Diphtheria and Pertussis Immunization (1 - Tdap) 1986 Zoster Immunization (1 of 2) 1986 Colorectal Cancer Screening 1997 Covid-19 Immunization (3 - Moderna risk series) 02/26/2021 01/29/2021, 01/01/2021 Influenza Immunization (#1) 06/10/202507/11, 09/22/2022, 07/08/2021, Additional history exists Hepatitis A Immunization Aged Out 08/03/2019, 09/09 No longer eligible based on patient's age to complete this topic HIB Immunization Aged Out No longer e ligible based on patient's age to complete this topic HPV Immunization Aged Out No longer e ligible based on patient's age to complete this topic Pneumococcal: Ped (0 to 5 Yrs) and At-Risk Member (6 to 64 Yrs) Aged Out No longer eligible based on patient's age to complete this topic Polio Immunization Aged Out No longer eligible based on patient's age to complete this topic Insurance [facility] [place] 5 Care Teams Gambling Cashier Relationship Specialty Start Date End Date Kulwant Rojas, [place] [id number] PCP - General Pbx Manager 03/14/20
--- OUTSIDE RECORDS SUMMARY | 2025-04-16 11:21 | XMS_ITS | Clinical Summary ---
Author Organization Healthcare Address [address] [place] [address] Care Team Providers Care Banjo Repair Person Name Role Phone Kulwant Rojas MD Primary Care Provider + [phone] Jose Sprague MD Unavailable [phone] Allergies No known active allergies Medications albuterol 108 (90 Base) MCG/ACT inhaler Inhale 2 puffs as needed in the morning and 2 puffs as needed at noon and 2 puffs as needed in the evening and 2 puffs as needed before bedtime for shortness of breath or wheezing. Active tadalafil (Adcirca) 20 MG tablet Take 1 tablet (20 mg) by mouth daily as needed for erectile dysfunction. Active valsartan (Diovan) 320 MG tablet Take 1 tablet (320 mg) by mouth in the morning. 4 Active verapamil ER (Veralan PM) 180 MG 24 hr capsule Take 1 capsule (180 mg) by mouth nightly. Do not crush or chew. Active tadalafil (Cialis) 20 MG tablet Take 1 tablet (20 mg) by mouth 1 (one) time each day if needed for erectile dysfunction. 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 12/01/2012 [employer] workers pneumoconiosis 12/01/2012 Gastro-esophageal reflux disease without esophag itis 12/01/2012 Hypothyroidism 12/01/2012 Essential hypertension 12/02/2011 Overview (03/07/2024): 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 Overview (03/07/2024): Disorder of esophagus 06/30/2010 Overview (03/07/2024): Circadian rhythm sleep disorder, 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 Overview (03/07/2024): Lymphocytosis 11/07/2007 Overview (03/07/2024): Immunizations Immunization Administration Dates Next Due Hep A, Adult 08/03/2019,09/27/2018 Influenza, injectable, quadrivalent 07/08/2021 Influenza, injectable, quadr ivalent, preservative free 08/04/2023,07/10/2020,07/11/2019,2017,07/12/2017,07/19/2016 Influenza, recombinant, quad rivalent, injectable, preservative free 09/22/2022 Family History Medical History Relation Name Comments Heart disease Father DAD Hypertension Father DAD Cancer Mother MOM Arthritis Other 1 Coronary artery disease Other 2 Hypertension Other 3 Malig Hyperthermia Neg Hx Relation Name Status Comments Father DAD Mother MOM Other 1 Other 2 Other 3 Social History Tobacco Use Types Packs/Day Years Used Date Smoking Tobacco: Never Smokeless Tobacco: Current Snuff Tobacco Cessation:Ready to Q uit: Not Asked; Counseling Given: Not Answered Alcohol Use Standard Drinks/Week Comments No 0 (1 standard drink = 0.6 oz pure alcohol) Alcoholic Drinks/day: Never Drank Alcohol PHQ-2 Answer Date Recorded Patient Health Questionnaire-2 Score 0 12/17/2024 Sex and Gender Information Value Date Recorded Sex Assigned at Male 05/09/2024 8:42 AM EDT Legal Sex Male 8:35 PM EDT Gender Identity Male 05/09/2024 8:42 AM EDT Sexual Orientation Straight 05/09/2024 8: 42 AM EDT Last Filed Vital Signs Vital Sign Reading Time Taken Comments Blood Pressure 155/85 12/17/2024 2:20 PM EDT Pulse 65 12/17/2024 2:20 PM EDT Temperature 36.6 C (97.8 F) 12/17/2024 2:20 PM EDT Respiratory Rate 16 12/17/2024 2:20 PM EDT Oxygen Saturation 97% 12/17/2024 2:20 PM EDT Inhaled Oxygen Concentration - - Weight 98.1 kg (216 lb 4.3 oz) 12/17/2024 2:20 P M EDT Height 177.8 cm (5' 10 ) 12/17/2024 2:20 PM EDT Body Mass Index 31.03 12/17/2024 2:20 PM EDT Plan of Treatment Upcoming Encounters Date Type Department Care Team (Late st Contact Info) Description 04/19/2025 2:20 PM EDT Office Visit [facility] [address] [place] [address] Norma Garay MD [address] [facility] [address] [place] [address] Health Maintenance Due Date Last Done Comments [facility]-HIV Screening 1967 [facility]-Hepatitis C Screening 1967 [facility]-/Child/Adol SDOH Screenings 1967 [facility]- SDOH Screenings 1985 [facility]-Adult SDOH Screenings 1985 [facility]-DTaP,Tdap,and Td Vaccines (1 - Tdap) 1986 [facility]-Hepatitis B Vaccines (1 of 3 - 19+ 3-dose series) 1986 [facility]-Pneumococcal Vaccine: 50+ Years (1 of 2 - PCV) 1986 [facility]-Zoster Vaccines (1 of 2) 1986 CT Colonography 2012 Colonoscopy 2012 FIT-DNA 2012 FIT 2012 FOBT 2012 Sigmoidoscopy 2012 [facility]-Colorectal Cancer Screening 2012 [id number] Vaccine (3 - Moderna risk series) 02/26/2021 01/29/2021, 01/01/2021 [facility]-Influenza Vaccine (#1) 06/10/202508/04, 09/22/2022, 07/08/2021, Additional history exists [facility]-Depression Screening 12/17/2025 12/17/2024 [facility]-Hepatitis A Vaccines Aged Out 08/03/2019, 09/09 No longer eligible based on patient's age to complete this topic [facility]-Obesity Intervention Completed 024, 07/17/2024, 03/07/2024 HPV Vaccines Aged Out No longer eligi ble based on patient's age to complete this topic [facility]-HIB Vaccines Aged Out No longer e ligible based on patient's age to complete this topic [facility]-IPV Vaccines Aged Out No longer e ligible based on patient's age to complete this topic [facility]-Rotavirus Vaccines Aged Out No lo nger eligible based on patient's age to [place] [address] [place] [address] LUIS ALFREDO Advance Directives * Full Code (Latest Code Status on File) Date Activated Date Inactivated Comments 10/23/2024 1:32 PM 10/24/2024 5:21 PM Question Answer Comments Patient has decision-making capacity? Yes Care Teams Banjo Repair Person Relationship Specialty Start Date End Date Kulwant Rojas MD [address] [place] [address] PCP - General 02/20/21 Jose Sprague MD [address] [facility] [address] [place] [address] Consulting Physician Radiation Oncology 07/31/24
--- OUTSIDE RECORDS SUMMARY | 2025-04-16 11:21 | XMS_ITS | Data Portability ---
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 He works at [employer]. He'll need to be out of work [...] discectomy. Pain is resolved. He works at [employer]. I will get him in for lumbar [...] (PROC ) No observ ation record ed. [facility]3]op [address], [place], [address], 08/29/2020 13:50:33 04/13/20 22 04/02/2022 MRI, lumba r spine , w/wo contr ast No observ ation record ed. [facility] [address], [place], [address], 05/25/2022 14:46:27 05/03/20 22 04/02/2022 MRI, lumba r spine , w/o contr ast No observ ation record ed. [facility] [address], [place], [address], 05/05/2022 13:18:51 Result Notes None recorded. Procedures Surgical History Date Name Laterality Status Provider Name and Address Organization Details Recorded Time 08/18/20 TRANSPEDICULAR SPINAL DECOMPRESSION, LUMBAR (SURG) completed Alena Hand [facility] 09/02/2020 14:55:38 Hernia repair w/mesh completed Yaritza Alfaro [facility] 08/14/2020 09:16:55 Imaging Results None recorded. Procedure [...] index (BMI) Body weight Heart rate Systolic And Diastolic Provider Name and Address Organization Details Last Updated DateTime 05/04/2022 177.8 cm 34.3 kg/m2 679852.5 8 g 59 /min 139/69 mm[Hg] [facility] 05/04/2022 14:46:13 Date Recorded Body height Body mass index (BMI) Body weight Heart rate Systolic And Diastolic Provider Name and Address Organization Details Last Updated DateTime 08/14/2020 177.8 cm 33 kg/m2 670498.2 5 g 75 /min 146/79 mm[Hg] [facility] 08/14/2020 09:15:43 Social History None recorded. Functional Status [...] available 02/2020 09:16:37 Medical History Condition Response Hypertension Y Sleep Apnea Y Past Encounters Encounter ID Performer Location Encounter Start Date Encounter Closed Date Diagnosis/Indication Diagnosis SNOMED-CT Code Diagnosis ICD10 Code Diagnosis Note [id number] LEXUS FARRAR MD [facility] [address] [place] [address] 08/14/2020 08:34:10 08/14/2020 14:40:44 Lumbar disc prolapse with radiculopathy 125904418 M51.16 [id number] LEXUS FARRAR MD [facility] [address] [place] [address] 09/02/2020 15:27:40 09/02/2020 16:08:33 [id number] LEXUS FARRAR MD SURGERY SCHEDULE [address] [place] [address] 09/05/2020 12:56:39 09/05/2020 13:16:31 [id number] LEXUS FARRAR MD [facility] [address] [place] [address] 09/18/2020 09:29:24 09/18/2020 10:23:18 Prolapsed lumbar intervertebral disc 870089767 M51.26 [id number] LEXUS FARRAR MD [facility] [address] [place] [address] 05/04/2022 13:38:36 05/10/2022 13:52:27 Lumbar spondylosis 873834218 M47.896 Health Concerns Section Related Observation LastModified by Organization Detai ls LastModified Time None Recorded Concern Status LastModified by Organization Details LastModified Time None Recorded Advance Directives Directive None Recorded Payers Insurance Date Sequence Insurance Name Policy Number Policy Lang Covered Member ID Lang Member ID Guarantor Name 07/10/2024 1 [place] [id number] Mario Lozano [id number] 20 Mario Lozano 09/05/2020 2 [place] [id number] Mario Lozano [id number] 20 Mario Lozano Notes Date Note Type [...] of the pain. LEXUS FARRAR MD [address] [place], [address], [facility] 08/14/2020 10:16:02 09/18/2020 text/html I saw Mr. Lozano . I performed a right L3-4 far lateral microlumbar discectomy on August 18, 2020. He has a very small amount and numbness in the anterior medial right thigh. He has no pain. He's happy. LEXUS FARRAR MD [facility] [place], [address], [facility] 09/18/2020 10:23:15 05/04/2022 text/html I saw [...] time. He was on vacation at the [facility] last week and it was being relatively sedentary. He states it is a lot better than it was when he had the MRI scan performed recently. He's had no conservative treatment. LEXUS FARRAR MD [facility] [place], [address], [facility] 05/04/2022 14:57:07
--- OUTSIDE RECORDS SUMMARY | 2025-04-16 11:21 | XMS_ITS | Patient Health Record ---
Author Organization [facility] Address [address] [place] [address] Care Team Providers Care Music Autographer Name Role Phone Kulwant Rojas Primary Care Provider [phone] McNeAneesh handi Unavailable [phone] Migration, Provider Unavailable Unavailable Allergies No Known Allergies Results Component Value Reference Range Notes CHEST PA & LAT Reviewed date:03/14/2025 03:04:30 PM Interpretation: Performing Lab: Notes/Report: Medications Medication SIG (Take, Route, Frequency, Duration) Notes Start Date End Date Status SYRINGE 3CC 21G 1.5 IM Q 2 WKS; Duration: 90 DAYS *Please review for potential replacement for e-prescription and drug interaction check* 05/21/2016 Active Flonase Allergy Relief 50 MCG/ACT 2 spray(s) intranasally once a day; Duration: 30 day(s) prn 01/28/2021 Active Arthritis Pain Reliever 1 % 2 gm applied topically 4 times a day to base of thumb; Duration: 10 days 05/21/2023 Active Voltaren Arthritis Pain 1 % as directed applied topically 4 times a day; Duration: 30 days 05/24/2023 Active Finasteride 5 MG 1 tab(s) orally once a day; Duration: 90 days 03/09/2022 Active Zepbound 5 MG/0.5ML INJECT 1 SYRINGE SUBCUTANEOUSLY ONCE A WEEK FOR 28 DAYS; Duration: 28 Active Tadalafil 5 MG 1 tab(s) orally once a day Active Testosterone Cypionate 200 MG/ML 200mg intramuscularly every 2 weeks; Duration: 30 days 11/08/2023 Active Verapamil HCl ER 180 MG 1 cap(s) orally once a day; Duration: 90 days Active TADALAFIL (EQV-CIALIS) 20 MG TAKE 1 TABLET BY MOUTH ONCE DAILY FOR 10 DAYS; Duration: 10 *Please review for potential replacement for e-prescription and drug interaction check* Active Valsartan 320 MG Take 1 tablet by rebecca th once daily; Duration: 90 Active Immunizations Vaccine Route Administration Date Status Comme nts Influenza-Fluzone 3+years (NON-MEDICARE) IM Intramuscular 07/19/2016 Administered Influenza-Fluzone 3+years (NON-MEDICARE) IM Intramuscular 07/12/2017 Administered Lot # [id number] Exp date 04/08/17 Influenza-Fluzone 3+years (NON-MEDICARE) IM Intramuscular 07/12/2018 Administered Hep A Adult 2 Dose IM Intramuscular 09/27/2018 Administered Hep A Adult 2 Dose IM Intramuscular 08/03/2019 Administered FLUZONE 6MO - OLDER IM Intramuscular 07/11/2019 Administered FLUZONE 6MO - OLDER Unknown 07/10/2020 Administered Fluvirin--Influen za vaccine 3+ year IM Intramuscular 08/09/2012 Administered Flublok IM Intramuscular 09/22/2022 Administered Adacel (Tdap) IM Intramuscular 04/30/2015 Administered Problems Problem Type SNOMED Code ICD Code Onset Dates Problem Status W/U Status Risk Notes Problem Headache disorder (580561204) Other headache syndrome (G44.89) Active confirmed Problem Allergic rhinitis (13972596) Other allergic rhinitis (J30.89) Active confirmed Problem Chronic bronchitis (53797458) Unspecified chronic bronchitis (J42) Active confirmed Problem Llanos's esophagus (969480277) 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) Active confirmed Problem Pityriasis rosea (23282245) Pityriasis rosea (L42) Active confirmed Problem Trochanteric bursitis of right hip (039096975719121) Trochanteric bursitis, right hip (M70.61) Active confirmed Problem Wheezing (72504779) Wheezing (R06.2) Active confirmed Problem Trochanteric bursitis of left hip (133688699222143) Trochanteric bursitis of left hip (M70.62) Active confirmed Problem Hypothyroidism (44427396) Hypothyroidism (acquired) (E03.9) Active confirmed Problem Hyperlipidemia (84188859) Hyperlipemia, idiopathic familial (E78.5) Active confirmed Problem Essential hypertension (94815922) Hypertension, essential (I10) Active confirmed Problem Body mass index 30.00 to 34.99 (319548399740503) BMI 34.0-34.9,adult (Z68.34) Active confirmed Problem Androgen deficiency (36065650) Androgen deficiency (E29.1) Active confirmed Problem Nephrolithiasis (44613266) Nephrolithiasis (N20.0) Active confirmed Problem Mononeuropathy of lower limb (556544147) Neuropathy of right lower extremity (G57.91) Active confirmed Problem Chronic serous otitis media of left ear (639758265) Chronic serous otitis media of left ear (H65.22) Active confirmed Problem Obstructive sleep apnea (27776931) Obstructive sleep apnea (G47.33) Active confirmed Problem Restless legs (46397280) Restless leg (G25.81) Active confirmed Problem Left rotator cuff syndrome (052918195022854) Rotator cuff syndrome of left shoulder (M75.102) Active confirmed Problem Morbid obesity (177740117) Severe obesity (BMI >= 40) (E66.01) Active confirmed Problem Sciatica (58316164) Right sided sciatica (M54.31) Active confirmed Problem Sciatica (25153549) Acute right-sided low back pain with right-sided sciatica (M54.41) Active confirmed Problem Leukocytosis (177574283) Leukocytosis, unspecified (D72.829) Active confirmed Problem Benign prostatic hypertrophy with outflow obstruction (586598679) BPH loc w urin obs/LUTS (N40.1) Active confirmed Problem Glossodynia (94074125) Tongue pain (K14.6) Active confirmed Problem Lower urinary tract symptoms due to benign prostatic hypertrophy (29004208905103) Benign prostatic hyperplasia with lower urinary tract symptoms (N40.1) Active confirmed Problem Lumbar spondylosis (575689980) Lumbar spondylosis (M47.816) Active confirmed Problem [place] workers' pneumoconiosis (47059602) [place] workers pneumoconiosis (J60) Active confirmed Problem Intractable episodic tension-type headache (424443488688152) Intractable episodic tension-type headache (G44.211) Active confirmed Vital Signs Heart Rate 72 /min 05/22/2024 Temperature 98.1 degrees Fahrenheit 05/22/2024 Blood pressure diastolic 64 mm Hg 05/22/2024 Height 5 ft 9 in in 05/22/2024 Blood pressure systolic 106 mm Hg 05/22/2024 Weight 208 lbs 05/22/2024 BMI 30.71 kg/m2 05/22/2024 Encounters Encounter Location Date Provider Diagnosis [facility] [address] [place], [place] [address] 01/12/2025 Provider Migration Hypertension, essential I10 [facility] [address] [place] [address] 05/22/2024 Mariel McNees Hypertension, essential I10 [facility] [address] [place] [address] 08/22/2024 Kulwant Rojas [facility] [address] [facility] [address] [place] [address] 03/11/2025 Kulwant Rojas [place] pneumoconiosis J60 [facility] [address] [facility] [address] [place] [address] 03/12/2025 Kulwant Rojas Assessments Encounter Date Diagnosis (ICD Code) Assessment Notes Treatment Notes Treatment Clinical Notes Section Notes 05/22/2024 Hypertension, essential (ICD-10 - I10) Likely related to HCTZ and low blood pressure given his signficant weight loss. Change to ARB as above. RTC in 2 weeks for b/p check or sooner prn 01/12/2025 Hypertension, essential (ICD-10 - I10) 03/11/2025 [place] pneumoconiosis (ICD-10 - J60) Plan Of Treatment Pending Test Test Name Order Date MRI : Hip, Right 12/01/2016 MRI : Hip, Right 08/04/2020 X ray : Shoulder, Left 03/23/2021 X ray : Spines, Thoracic Spine Ultrasound : Thyroid 12/22/2010 EKG : In House 10/15/2010 Physical Therapy 06/08/2010 Physical Therapy 02/16/2017 Physical Therapy 06/06/2017 Physical Therapy 06/23/2007 H-CBC with AUTO DIFF 03/28/2017 H-CBC with AUTO DIFF 02/16/2011 H-CBC with AUTO DIFF 02/11/2011 H-BMP 02/11/2011 H-LIPID PANEL 01/09/2013 H-ANGIOTENSIN CONVERTING EN 02/16/2011 H-PSA SCREEN 04/28/2010 H-H.PYLORI ANTIGEN 04/28/2010 H-MYCOPLASMA PNEUMONIAE ANTIBODY 011 H-WEST NILE VIRUS 05/15/2013 H-PERIPHERAL SMEAR REVIEW 05/02/2017 NUCLEAR MED : Thyroid Scan Only 12/23/19 11 C-CMP 02/07/2016 H-SS A 05/11/2011 H-SS B 05/11/2011 TSH 01/03/2014 H-TESTOSTERONE 11/24/2016 M-Complete Blood Count Auto Diff 019 M-Comprehensive Metabolic Panel 04/19/20 M-BUN & Creatinine 10/25/2023 M-Hemoglobin A1C 04/19/2019 M-Lipid Panel 04/19/2019 M-Prostate Specific Ag Screen 04/19/2019 M-Thyroid Panel 04/19/2019 M-Upper Respiratory Panel, PCR M-Vitamin B12 03/04/2022 M-Vitamin B12 02/28/2024 M-Vitamin B12 04/19/2019 M-Vitamin D 25 Hydroxy 04/19/2019 M-Vitamin D 25 Hydroxy 02/28/2024 M-Vitamin D 25 Hydroxy 03/04/2022 M-Testosterone, Free+Total LC/MS 019 M-Methylmalonic Acid 04/19/2019 Future Test Test Name Order Date H-TESTOSTERONE 03/23/2017 M-Vitamin B12 01/08/2021 M-Vitamin D 25 Hydroxy 01/08/2021 Insurance Providers Payer Name Payer Address Payer Phone Subscriber Number Group Number Insured Name Patient Relationship to Insured Coverage Start Date Coverage End Date [facility] [address] [place] [address] [id number] Mario Lozano Self - patient is the insured Medications Administered Medication Instructions Date of Administration Dosage Notes Bicillin CR 07/17/2013 1,200,000/2ml cc Ceftriaxone 500 09/18/2013 500 mg Ceftriaxone 500 11/25/2014 500 Ceftriaxone 500 10/27/2016 500 mL Ceftriaxone 500 07/12/2022 500 mg Dexamethasone 4mg Injection 10/07/2021 4 mg Dexamethasone 4mg Injection 07/12/2022 4 mg Kenalog 40mg 03/23/2017 40 mg Triamcinolone Acetonide 40mg Injection 09/27/2018 1 mL Triamcinolone Acetonide 40mg Injection 01/22/2019 1 mL Triamcinolone Acetonide 40mg Injection 12/08/2019 1 mL Triamcinolone Acetonide 40mg Injection 07/18/2020 1 mL Kenalog 05/08/2013 1 Kenalog 07/17/2013 1 mL Kenalog 09/18/2013 1 Kenalog 11/25/2014 1 Kenalog 02/18/2016 1 mL Kenalog 10/27/2016 1 mL Promethazine HCL 05/08/2013 Medical (General) History Medical History History ICD Code hyperlipidemia Hypothyroidism Esophageal reflux - negative biopsy for Barrets february 2018 hypertension Black lung Hypogonadism c-scope with tubular adenoma february 2018 kidney stones Surgical History Surgery Date(Month/Year) hernia repair oral surgery 04/07/2016- L3/L4 lumbar microdiscectomy 08/2020 Renal stent 10/2020
--- OUTSIDE RECORDS SUMMARY | 2025-04-16 11:21 | XMS_ITS | Encounter Summary ---
Author Organization [facility] Address [address] [place] [address] Care Team Providers Care Drill Sergeant Name Role Phone Kulwant Rojas MD Primary Care Provider + [phone] Jose Sprague MD Unavailable [phone] Reason for Referral * Consultation (Routine) - Closed Specialty Diagnoses / Procedures Referred By Contac t Referred To Contact Urology Diagnoses Elevated PSA Kulwant Rojas MD [address] [place] [address] Phone: tel: fax: Kulwant Hairston MD [address] [facility] [address] [place] [address] Phone: tel: fax: Referral ID Status Reason Start Date Expiration Date V isits Requested Visits Authorized [id number] Closed Specialty Services Required 02/29/2024 08/30/2025 1 1 Encounter Details Date Type Department Care Team (Late st Contact Info) Description 02/29/2024 Community [facility] [address] [place] [address] Kulwant Rojas MD [address] [place] [id number] Elevated PSA (Primary Dx) Social History Tobacco Use Types Packs/Day Years Used Date Smoking Tobacco: Never Alcohol Use Standard Drinks/Week Comments No 0 (1 standard drink = 0.6 oz pure alcohol) Alcoholic Drinks/day: Never Drank Alcohol Sex and Gender Information Value Date Recorded Sex Assigned at Male 05/09/2024 8:42 AM EDT Legal Sex Male 8:35 PM EDT Gender Identity Male 05/09/2024 8:42 AM EDT Sexual Orientation Straight 05/09/2024 8: 42 AM EDT documented as of this encounter Plan of Treatment Upcoming Encounters Date Type Department Care Team (Late st Contact Info) Description 04/19/2025 2:20 PM EDT Office Visit [facility] [address] [place] [address] Norma Garay MD [address] [facility] [address] [place] [address] Scheduled Referrals Name Type Priority Associated Diagnoses Order Schedule Ambulatory referral to Urology Outpatient Referral Routine Elevated PSA Ordered: 02/29/2024 documented as of this encounter Visit Diagnoses Diagnosis Elevated PSA- Primary Elevated prostate specific antigen (PSA) documented in this encounter Care Teams Drill Sergeant Relationship Specialty Start Date End Date Kulwant Rojas MD [address] [place] [address] PCP - General 02/20/21 Jose Sprague MD [address] [facility] [address] [place] [address] Consulting Physician Radiation Oncology 07/31/24 documented as of this encounter
[2025-04-16 13:42] LABS: Prostate Specific Ag, Diagnost < 0.064 ng/ml (0.0-4.0)
[2025-04-17 11:33] LABS: Testosterone,Total 323 ng/dL (264-916)
== END 2025-04-16 23:59 | disposition home or self-care (01) ==
LOC: LAB 11:17
PROVIDERS: PCP Internal Medicine Adolescent Medicine; Visit Provider Physician Assistant
DX: E29.1 Testicular hypofunction (principal)
CPT/HCPCS: 36415; 84153; 84403

== ENCOUNTER 2025-06-17 12:57 | Outpatient (CLI) | payer BC, SELFPAY ==
--- OUTSIDE RECORDS SUMMARY | 2024-06-05 12:30 | XMS_ITS ---
Author Organization [facility] Address [address] [place], [place] [address] Care Team Providers Care Roller Presser Operator Name Role Phone Kulwant Rojas Primary Care Provider Mariel Cruz [phone] REASON FOR VISIT 2 wk FU Encounters Encounter Location Date Provider Diagnosis [facility] [address] [place], [place] [address] 06/05/2024 Mariel Cruz Plan Of Treatment No Information Progress Notes * Mario VELASCO MDOB: 7 (59 yo M)Acc No.[id number]:06/05/2024 Progress Notes Patient: Mario WOLFE Provider: Vale Cruz APRN :1965 A ge:58 Y S ex:Male Date:06/05/2024 Address:[address] [place], [id number] Pcp:Kulwant Rojas Subjective: * Chief Complaints: * 1 . 2 wk FU. * Medical History: Objective: * Vitals: Assessment: Plan: * Treatment: * * Electronic signature of Aneesh Cruz APRN on 06/17/2025 at 01:01 PM EDT Sign off status: Pending * Provider: Vale Cruz APRN Date: 0 06/05/2024 Generated for López lo/Anders/eTransmitting on: 0 06/17/2025 01:01 PM EDT
--- OUTSIDE RECORDS SUMMARY | 2025-01-12 17:30 | XMS_ITS ---
Author Organization [facility] Address [address] [place] [address] Care Team Providers Care Rn Advanced Name Role Phone Kulwant Rojas Primary Care Provider Migration, Provider Unavailable Unavailable [facility] Encounter Medications Medication SIG (Take, Route, [...] Active Encounters Encounter Location Date Provider [facility] [address] [place] [address] 01/12/2025 Provider Migration Hypertension, essential I10 Assessments [...] Mario VELASCO MDOB: 7 (59 yo M)Acc No.[id number]:01/12/2025 Patient: Ignacio Mario INFANTE Provider: Kaleigh Blanco :1965 A ge:59 Y S ex:Male Date:01/12/2025 Address:[address] [place], [id number] Pcp:Kulwant Rojas Subjective: * Chief Complaints: * [...] Electronic signature of Prov ider Migration on 06/17/2025 at 01:00 PM EDT Sign off status: Pending * Provider: Kaleigh jansen Migration Date: 0 01/12/2025 Generated for López lo/Anders/Antoniitting on: 0 06/17/2025 01:00 PM EDT
--- OUTSIDE RECORDS SUMMARY | 2025-06-03 14:00 | XMS_ITS | Encounter Summary ---
Author Organization Healthcare Address [address] [place] [address] Care Team Providers Care Cage Maker Machine Name Role Phone Kulwant Rojas MD Primary Care Provider + [phone] Jose Sprague MD Unavailable [phone] Reason for Visit * Reason Comments Follow-up Malignant neoplasm o f prostate Encounter Details Date Type Department Care Team (Latest Contact Info) Description 06/03/2025 2:00 PM EDT Office Visit [facility] Multidisciplinary Oncology Clinic [address] [place] [address] Sherin Perdue, PA [address] [place] [address] Erectile dysfunction after radical prostatectomy (Primary Dx); Malignant neoplasm of prostate (CMS/HCC) Social History Tobacco Use Types Packs/Day Years Used Date Smoking Tobacco: Never Smokeless Tobacco: Current Snuff Alcohol Use Standard Drinks/Week Comments No 0 (1 standard drink = 0.6 oz pure alcohol) Alcoholic Drinks/day: Never Drank Alcohol PHQ-2 Answer Date Recorded Patient Health Questionnaire-2 Score 0 06/03/2025 PHQ-9 Answer Date Recorded Patient Health Questionnaire-9 Score 0 06/03/2025 Sex and Gender Information Value Date Recorded Sex Assigned at Male 05/09/2024 8:42 AM EDT Legal Sex Male 8:35 PM EDT Gender Identity Male 05/09/2024 8:42 AM EDT Sexual Orientation Straight 05/09/2024 8: 42 AM EDT documented as of this encounter Last Filed Vital Signs Vital Sign Reading Time Taken Comments Blood Pressure 165/87 06/03/2025 1:54 PM EDT Pulse 62 06/03/2025 1:54 PM EDT Temperature 36.7 C (98 F) 06/03/2025 1:54 PM EDT Respiratory Rate 14 06/03/2025 1:54 PM EDT Oxygen Saturation 99% 06/03/2025 1:54 PM EDT Inhaled Oxygen Concentration - - Weight 100 kg (220 lb 14.4 oz) 06/03/2025 1:54 P M EDT Height 177.8 cm (5' 10 ) 06/03/2025 1:54 PM EDT Body Mass Index 31.7 06/03/2025 1:54 PM EDT documented in this encounter Functional Status * Over the past 2 weeks, how often have you been bothered by any of the following problems? Question Answer Date of Assessment Author Little interest or pleasure in doing things Not at all 06/03/2025 1:56 PM EDT Camelia Santillan Feeling down, depressed, or hopeless Not at all 05/11 1:56 PM EDT Camelia Santillan Patient Health Questionnaire-2 Score 0 05/11 1:56 PM EDT Camelia Santillan * Question Answer Date of Assessment Author Trouble falling or staying a sleep, or sleeping too much Not at all 06/03/2025 1:56 PM EDT Camelia Santillan Feeling tired or having ranjana le energy Not at all 06/03/2025 1:56 PM EDT Camelia Santillan Poor appetite or overeating Not at all 06/03/2025 1: 56 PM EDT Camelia Santillan Feeling bad about yourself - or that you are a failure or have let yourself or your family down Not at all 06/03/2025 1:56 PM EDT Jose Santillan Trouble concentrating on thi ngs, such as reading the newspaper or watching television Not at all 06/03/2025 1:56 PM EDT Camelia Santillan Moving or speaking so slowly that other people could have noticed? Or the opposite - being so fidgety or restless that you have been moving around a lot more than usual. Not at all 06/03/2025 1:56 PM EDT Francheska Santillan Thoughts that you would be b comfort off or hurting yourself in some way Not at all 06/03/2025 1:56 PM EDT Camelia Santillan Patient Health Questionnaire-9 Score 0 05/11 1:56 PM EDT Camelia Santillan * If you checked off any problems on this questionnaire so far, Question Answer Date of Assessment Author How difficult have these problems made it for you to do your work, take care of things at home, or get along with other people? Not difficult at all 06/03/2025 1:56 PM EDT Camelia Santillan documented as of this encounter Miscellaneous Notes * Progress Notes - Sherin Perdue PA - 06/03/2025 2:00 PM EDT Images from the original note were not included. Urology Followup Note 06/03/2025 Chief Complaint: prostate cancer Referring Provider: Dr. Zack Aaron History of Present Illness: Mario Lozano is a 59 y.o. male from [facility] [address] who presents for evaluation of favorable intermediate risk prostate cancer. He was seen by Dr. Zack Aaron after he had an elevated PSA of 5.5. He also was having bothersome LUTS symptoms with difficulty initiating a stream. Due to his elevated PSA, he underwent a prostate MRI showing a 51.8 g gland with a PI-RADS 4 lesion at the left apex. He then underwent prostate fusion biopsy and cystoscopy on 06/29/2024 which showed Salazar 3 + 4 disease at the region of interest and also [place]wabik 3 + 3 disease at the left lateral apex. He also had a cystoscopy with Dr. Zack Aaron which showed unremarkable findings with an intravesical protrusion of the prostate. He met with him and talked about his options for his prostate cancer and at that point in time was initially thinking that radiation would be the best option for him. This is because he has 2 friends who are similar age who both had prostate cancer and underwent radiation therapy. He was under the assumption that that is what younger men with prostate cancer did. From a symptom standpoint, he does have bothersome lower urinary tract symptoms. His primary symptom is difficulty initiating a stream and difficulty maintaining his stream. From an erectile standpoint, he takes tadalafil on demand that works somewhat well for him. He does not have problems initiating an erection, though he does have difficulty maintaining an erection. I personally reviewed and updated the patient's past medical, surgical, social, and family histories Pertinent medical history includes HTN. Pertinent surgical history includes prior RIGHT inguinal hernia repair at age 18. The patient denies a family history of malignancy, though his family doeshave long history of cardiac disease in the men of his family. ECOG0 12/17/2024 - successful post-op voiding trial at last visit 11/02/2024. Here to review recent PSA, done on 12/08/2024 which was 0.064. He is still have some incontinence issues since surgery. He was unable to see pelvic floor PT pre-op but started seeing them 2 weeks post-op, seeing them 2x/week currently. No UI with sitting or lying, and if he knows he needs to void, he can usually hold it until he gets to the bathroom. He can hold his urine when going from sitting to standing as well, but does have dribbling UI with walking or doing work around the house, small spurted volumes. He is wearing pads currently, 1-2 pads max per day. No dysuria or GH. He did take tadalafil pre-op (20mg PRN). He is taking 20mg every other day currently. He feels that he is getting partial spontaneous AM erections but no quality erection with stimulation. He was on T shots in the past, was doing a shot Q2 weeks but this has been held since recent PSA/prostate cancer issues 06/03/2025 - Continence is continuing to improve, down to just a thin liner, 1 a day but usually dry. No dysuria or GH. No weight loss. He is getting partial erection but not firm enough or penetration. No pain with erection. Libido is good. He used tadalafil 20mg pre-op PRN with success, but hasn'thelped since surgery, even when he took this once daily. He was on T shot prior to RALP for the last 5-6 years, but has been off of this since 02/2024. Review of Systems: A complete 14 point ROS was performed and reviewed- please see HPI and scanned/signed intake form. Past Medical History: Diagnosis Date Adverse effect of anesthesia 06/29/2024 The medication in my IV felt like my arm was on fire and it was the worst time I have ever been putunder. High blood pressure Prostate cancer (CMS/HCC) 06/29/2024 Sleep apnea C-pap Past Surgical History: Procedure Laterality Date BACK SURGERY 2021 BRONCHOSCOPY 2011 COLONOSCOPY HERNIA REPAIR OTHER SURGICAL HISTORY N/A Rigid Bronchoscopy With Transbronchial Lung Biopsy from [facility] OTHER SURGICAL HISTORY 06/29/2024 ([facility]) MRI FUSION BIOPSY AND CYSTOSCOPY VASECTOMY Family History Problem Relation Name Age of Onset Cancer Mother MOM Heart disease Father DAD Hypertension Father DAD Arthritis Other Coronary artery disease Other Hypertension Other Malig Hyperthermia Neg Hx Social History Socioeconomic History Marital status: Spouse name: Not on file Number of children: Not on file Years of education: Not on file Highest education level: Not on file Occupational History Not on file Tobacco Use Smoking status: Never Smokeless tobacco: Current Types: Snuff Vaping Use Vaping status: Never Used Substance and Sexual Activity Alcohol use: No Comment: Alcoholic Drinks/day: Never Drank Alcohol Drug use: Never Sexual activity: Yes Partners: Female control/protection: Other Other Topics Concern Not on file Social History Narrative Not on file Social Drivers of Health Financial Resource Strain: Not on file Food Insecurity: Not on file Transportation Needs: Not on file Physical Activity: Not on file Stress: Not on file (08/13/2024) Social Connections: Not on file Intimate Partner Violence: Low Risk (01/21/2021) Received from [facility] Intimate Partner Violence Insults You: Not on file Threatens You: Not on file Screams at You: Not on file Physically Hurt: Not on file Intimate Partner Violence Score: Not on file Housing Stability: Not on file Current Outpatient Medications Medication Sig Dispense Refill albuterol 108 (90 Base) MCG/ACT inhaler Inhale 2 puffs as needed in the morning and 2 puffs as needed at noon and 2 puffs as needed in the evening and 2 puffs as needed before bedtime for shortness of breath or wheezing. tadalafil (Cialis) 20 MG tablet Take 1 tablet (20 mg) by mouth 1 (one) time each day if needed for erectile dysfunction. 30 tablet 3 valsartan (Diovan) 320 MG tablet Take 1 tablet (320 mg) by mouth in the morning. NON FORMULARY SYRINGE WITH NEEDLE 3 ML 22 X 1 1/2 (Patient not taking: Reported on 06/03/2025) tadalafil (Adcirca) 20 MG tablet Take 1 tablet (20 mg) by mouth daily as needed for erectile dysfunction. (Patient not taking: Reported on 06/03/2025) verapamil ER (Veralan PM) 180 MG 24 hr capsule Take 1 capsule (180 mg) by mouth nightly. Do not crush or chew. (Patient not taking: Reported on 06/03/2025) No current facility-administered medications for this visit. No Known Allergies Visit Vitals BP (!) 165/87 (BP Location: Left arm, Patient Position: Sitting, BP Cuff Size: Adult) Pulse 62 Temp 36.7 ??C (98 ??F) (Oral) Resp 14 Ht 1.778 m (5' 10 ) Wt 100 kg (220 lb 14.4 oz) SpO2 99% BMI 31.70 kg/m?? Smoking Status Never BSA 2.22 m?? Physical Exam Vitals reviewed. Exam conducted with a mortgage loan reviewer present. Constitutional: General: He is not in acute distress. Appearance: Normal appearance. HENT: Head: Normocephalic and atraumatic. Eyes: Conjunctiva/sclera: Conjunctivae normal. Cardiovascular: Rate and Rhythm: Normal rate. Pulmonary: Effort: Pulmonary effort is normal. Musculoskeletal: General: Normal range of motion. Neurological: General: No focal deficit present. Mental Status: He is alert and oriented to person, place, and time. Psychiatric: Mood and Affect: Mood normal. Behavior: Behavior normal. Thought Content: Thought content normal. Judgment: Judgment normal. Records Review: I personally reviewed I personally reviewed outside institution and internal imaging studies, imaging reports, labs, and provider notes as noted below and in the assessment and plan. PSA Log: Date PSA Total T 02/28/2024 5.52 12/08/2024 <0.064 04/11/2025 <0.064 323 (drawn at 11:45) Labs: 10/24/2024 - WBC 13.37, hgb 14.7, creat 1.05 Imaging: PVR (03/07/2024) - 15mL Prostate MRI (05/11/2024) - 52g gland, PSA density 0.11. PIRADS 4 lesion at left apex, no LAD or SV involvement. No bony lesions. Indeterminate filling defects in bladder, up to 7mm along posterior wall (Subsequent cysto 06/29/2024 showed no bladder lesions) Pathology: Prostate biopsy (06/29/2024) - [place] 3+4=7 (GrGp2) in 4/4 cores at lesion of interest (up to 75% involvement). [place] 3+3=6 (GrGp1) in 1 core at the left lateral apex (50%) RALP (10/23/2024) Assessment and Plan: Prostate CA, [id number] - PSA of 5.5 in 02/2024. Prostate MRI (05/2024) showed a 52g gland, PSA density 0.11. PIRADS 4 lesion at left apex, no LAD or SV involvement. No bony lesions. He underwent prostate biopsy (06/29/2024) that showed [place] 3+4=7 (GrGp2) in 4/4 cores at lesion of interest (up to75% involvement). Salazar 3+3=6 (GrGp1) in 1 core at the left lateral apex (50%). He underwent RALP(10/23/2024) and pathology showed Salazar 3+4=7 (GrGp2), with positive margin at left bladder neck and left anterior gland. 8/8 nodes negative. His PSA has remained UDT, most recent (04/2025, drawn [facility]). 2. Stress UI - Had some initial small volume dribbling/ spurting urine loss with walking, work around the house; but can hold urine otherwise. This continues to improve, down to 1 thin liner a day but this is often dry at the end of the day - Kegel exercises endorsed, limit bladder irritants 3. ED - used Cialis 20mg PRN for baseline ED prior to recent RALP with success. Since RALP, has tried cialis 20mg (as often as daily) without improvement. Has partial erections at times but not firm enough for penetration. - Discussed alternative options, including PO sildenafil vs intraurethral gel vs intracavernosal injections vs ZACHARIAH vs IPP - He opts for sildenafil 100mg trial now but would also like to see Floridalma Espinal for Trimix trial, will arrange 4. Hypogonadism - was on T shots (200mg Q2 weeks) for at least 5 years. No pre or post-treatment Tlevels available. Has been off T shots since at least 02/2024 due to elevated PSA/prostate CA. Current T level (04/2025) is low-normal at 323 (drawn at 11:45 AM) - Current T level is actually normal (although on the low end) despite being off T shots for over 1year. May consider resuming T shots at some point but holding off for now given recent CaP diagnosis, which he understands. Sherin Perdue PA-C documented in this encounter Plan of Treatment Upcoming Encounters Date Type Department Care Team (Late st Contact Info) Description 07/02/2025 10:10 AM EDT Procedure Visit [facility] Urology [address] [place] [address] Floridalma Espinal, WEIGHT RECORDER, DNP [address] [place] [address] 09/02/2025 1:40 PM EST Office Visit [facility] Multidisciplinary Oncology Clinic [address] [place] [address] Sherin Perdue PA [address] [place] [address] Scheduled Orders Name Type Priority Associated Diagnoses Orde r Schedule Prostate Specific Antigen, Diagnostic, Serum Lab Routine Malignant neoplasm of prostate (CMS/HCC) Expected: 09/03/2025 (Approximate), Expires: 12/05/2026 Testosterone Total Lab Routine Erectile dysfunction after radical prostatectomy Expected: 09/03/2025 (Approximate), Expires: 12/05/2026 documented as of this encounter Visit Diagnoses Diagnosis Erectile dysfunction after radical prostatectomy- Primary Malignant neoplasm of prostate (CMS/HCC) Malignant neoplasm of prostate documented in this encounter Additional Health Concerns Assessment Noted Time PHQ-9 Depression Total Score: 0 06/03/20 1:56 PM EDT A fall risk assessment has been complete d for the patient 06/03/2025 1:56 PM EDT A Body Mass Index follow-up plan has been documented for the patient 07/31/2024 9:40 AM EDT documented as of this encounter Care Teams Cage Maker Machine Relationship Specialty Start Date End Date Kulwant Rojas MD [address] [place] [address] PCP - General 02/20/21 Jose Sprague MD [address] [facility] [address] [place] [address] Consulting Physician Radiation Oncology 07/31/24 documented as of this encounter
--- OUTSIDE RECORDS SUMMARY | 2025-06-17 13:01 | XMS_ITS | Encounter Summary ---
Author Organization Healthcare Address [address] [place] [address] Care Team Providers Care Broaching Machine Operator Name Role Phone Kulwant Rojas MD Primary Care Provider + [phone] Jose Sprague MD Unavailable [phone] Encounter Details Date Type Department Care Team (Late st Contact Info) Description 04/16/2025 Telephone [facility] [address] [place] [address] Norma Garay MD [address] [facility] [address] [place] [address] Social History Tobacco Use Types Packs/Day Years [...] AM EDT documented as of this encounter Miscellaneous Notes * Telephone Encounter - Essie Moore - 04/16/2025 12:11 PM EDT RN re-faxed orders to [facility] fax. * Telephone Encounter - Zelda Abernathy - 04/16/2025 11:36 AM EDT Patient Phone Message Reason for Call: Keri is calling [facility] is calling they got an order for PSA but no provider name is on the order so they are needing a new order with the PSA and provider name. phone # [phone] Best contact number and optimal time of day to reach caller: Note: Please do not reply to this message. Follow-up communication and further actions as a result of this message need to be communicated with the patient directly, if the patient is not active onMyChart. If the patient is active on MyChart, they will receive notification of the communication/outcome via [employer]. documented in this encounter Plan of Treatment Upcoming Encounters Date Type Department Care Team (Late st Contact Info) Description 07/02/2025 10:10 AM EDT Procedure Visit [facility] [address] [place] [address] Floridalma Espinal, VINEET, DNP [address] [place] [address] 09/02/2025 1:40 PM EST Office Visit [facility] Multidisciplinary Oncology Clinic [address] [place] [address] Sherin Perdue, PA [address] [place] [address] documented as of this encounter Visit Diagnoses Not on filedocumented in this encounter Additional Health Concerns Assessment Noted Time A fall risk assessment has been complete d for the patient 12/17/2024 2:25 PM EDT A Body Mass Index follow-up plan has been documented for the patient 07/31/2024 9:40 AM EDT documented as of this encounter Care Teams Broaching Machine Operator Relationship Specialty Start Date End Date Kulwant Rojas MD [address] [place] [address] PCP - General 02/20/21 Jose Sprague MD [address] [facility] [address] [place] [address] Consulting Physician Radiation Oncology 07/31/24 documented as of this encounter
--- OUTSIDE RECORDS SUMMARY | 2025-06-17 13:01 | XMS_ITS | Clinical Summary ---
Author Organization Healthcare Address [address] [place] [address] Care Team Providers Care Insulator Cutter And Former Name Role Phone Kulwant Rojas MD Primary Care Provider + [phone] Jose Sprague MD Unavailable [phone] Allergies No known active allergies Medications albuterol [...] erectile dysfunction. 30 tablet 3 5 Active NON FORMULARY SYRINGE WITH NEEDLE 3 ML 22 X 1 1/2 Active sildenafil (Viagra) 100 MG tabletIndications: Erectile dysfunction after radical prostatectomy Take 1 tablet by mouth daily as needed for erectile dysfunction. 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 Overview (03/07/2024): Lymphocytosis 11/07/2007 Overview (03/07/2024): Encounters Date Type Department Care Team Description 06/03/2025 2:00 PM EDT Office Visit [facility] [address] [place] [address] Sherin Perdue PA Erectile dysfunction after radical prostatectomy (Primary Dx); Malignant neoplasm of prostate (CMS/HCC) 06/03/2025 Travel 05/27/2025 Travel 04/16/2025 Telephone [facility] [address] [place] [address] Norma Garay MD from Last 3 Months Immunizations Immunization Administration Dates Next Due Hep [...] Mass Index 31.7 06/03/2025 1:54 PM EDT Plan of Treatment Upcoming Encounters Date Type Department Care Team (Late st Contact Info) Description 07/02/2025 10:10 AM EDT Procedure Visit [facility] [address] [place] [address] Floridalma Espinal P, PERSONAL BANKING ASSISTANT, DNP [address] [place] [address] 09/02/2025 1:40 PM EST Office Visit [facility] Multidisciplinary Oncology Clinic [address] [place] [address] Sherin Perdue, PA [address] [place] [address] Health Maintenance Due Date Last Done Comments [facility]-HIV Screening 1967 [facility]-Hepatitis C Screening 1967 [facility]-Infant/Child/Adol SDOH Screenings 1967 [facility]- SDOH Screenings 1985 [facility]-Adult SDOH Screenings 1985 [facility]-DTaP,Tdap,and Td Vaccines (1 - Tdap) 1986 [facility]-Hepatitis B Vaccines (1 of 3 - 19+ 3-dose series) 1986 [facility]-Pneumococcal Vaccine: 50+ Years (1 of 2 - PCV) 1986 [facility]-Zoster Vaccines (1 of 2) 1986 CT Colonography 2012 Colonoscopy 2012 FIT-DNA 2012 FIT 2012 FOBT 2012 Sigmoidoscopy 2012 [facility]-Colorectal Cancer Screening 2012 [id number] Vaccine (3 - Moderna risk series) 02/26/2021 01/29/2021, 01/01/2021 [facility]-Influenza Vaccine (#1) 06/10/202508/04, 09/22/2022, 07/08/2021, Additional history exists [facility]-Depression Screening 06/03/2026 06/03/2025, 05/11 [facility]-Hepatitis A Vaccines Aged Out 08/03/2019, 09/09 [...] patient's age to complete this topic Insurance ANTH Advance Directives * Full Code (Latest Code Status on File) Date Activated Date Inactivated Comments 10/23/2024 1:32 PM 10/24/2024 5:21 PM Question Answer Comments Patient has decision-making capacity? Yes Care Teams Insulator Cutter And Former Relationship Specialty Start Date End Date Kulwant Rojas MD [address] [place] [address] PCP - General 02/20/21 Jose Sprague MD [address] [facility] [address] [place] [address] Consulting Physician Radiation Oncology 07/31/24
--- OUTSIDE RECORDS SUMMARY | 2025-06-17 13:01 | XMS_ITS | Encounter Summary ---
Author Organization [facility] Address [address] [place] [address] Care Team Providers Care Meat Specialist Name Role Phone Kulwant Rojas MD Primary Care Provider + [phone] Jose Sprague MD Unavailable [phone] Encounter Details Date Type Department Care Team (Latest Contact Info) Description 06/03/2025 Travel Social History Tobacco Use Types Packs/Day Years [...] AM EDT documented as of this encounter Functional Status * Over the [...] television Not at all 06/03/2025 1:56 PM RADHAT Camelia Santillan Moving or speaking so slowly [...] Camelia Santillan documented as of this encounter Plan of Treatment Upcoming Encounters Date Type Department Care Team (Late st Contact Info) Description 07/02/2025 10:10 AM EDT Procedure Visit [place] [facility] [address] [place] [address] Floridalma Espinal, DEPUTY BAILIFF, DNP [address] [place] [address] 09/02/2025 1:40 PM EST Office Visit [facility] [address] [place] [address] Sherin Perdue, MITRA [address] [facility] [address] [place] [address] documented as of this encounter Visit Diagnoses [...] documented as of this encounter Care Teams Meat Specialist Relationship Specialty Start Date End Date Kulwant Rojas MD [address] [place] [address] PCP - General 02/20/21 Jose Sprague MD [address] [facility] [address] [place] [address] Consulting Physician Radiation Oncology 07/31/24 documented as of this encounter
--- OUTSIDE RECORDS SUMMARY | 2025-06-17 13:01 | XMS_ITS | Patient Health Record ---
Author Organization [facility] Address [address] [place] [address] Care Team Providers Care Aircraft Life Support Fitter Name Role Phone Kulwant Rojas Primary Care Provider [phone] McNeAneesh handi Unavailable [phone] Migration, Provider Unavailable Unavailable Allergies No Known Allergies Results Component Value Reference Range Notes CHEST PA & LAT Reviewed date:03/14/2025 03:04:30 PM Interpretation: Performing Lab: Notes/Report: Medications Medication SIG (Take, Route, Frequency, Duration) Notes Start Date End Date Status Flonase Allergy Relief 50 MCG/ACT 2 spray(s) intranasally once a day; Duration: 30 day(s) prn 01/28/2021 Active Verapamil HCl ER 180 MG 1 cap(s) orally once a day; Duration: 90 days Active TADALAFIL (EQV-CIALIS) 20 MG TAKE 1 TABLET BY MOUTH ONCE DAILY FOR 10 DAYS; Duration: 10 *Please review for potential replacement for e-prescription and drug interaction check* Active SYRINGE 3CC 21G 1.5 IM Q 2 WKS; Duration: 90 DAYS *Please review for potential replacement for e-prescription and drug interaction check* 05/21/2016 Active Valsartan 320 MG Take 1 tablet by once daily for 90 days; Duration: 90 Active Voltaren Arthritis Pain 1 % as directed applied topically 4 times a day; Duration: 30 days 05/24/2023 Active Arthritis Pain Reliever 1 % 2 gm applied topically 4 times a day to base of thumb; Duration: 10 days 05/21/2023 Active Zepbound 5 MG/0.5ML INJECT 1 SYRINGE SUBCUTANEOUSLY ONCE A WEEK FOR 28 DAYS; Duration: 28 Active Testosterone Cypionate 200 MG/ML 200mg intramuscularly every 2 weeks; Duration: 30 days 11/08/2023 Active Tadalafil 5 MG 1 tab(s) orally once a day Active Finasteride 5 MG 1 tab(s) orally once a day; Duration: 90 days 03/09/2022 Active Immunizations Vaccine Route Administration Date Status Comme nts Influenza-Fluzone 3+years (NON-MEDICARE) IM Intramuscular 07/19/2016 Administered Influenza-Fluzone 3+years (NON-MEDICARE) IM Intramuscular 07/12/2017 Administered Lot # [id number] Exp date 04/08/17 Influenza-Fluzone 3+years (NON-MEDICARE) IM Intramuscular 07/12/2018 Administered Hep A Adult 2 Dose IM Intramuscular 09/27/2018 Administere d Hep A Adult 2 Dose IM Intramuscular 08/03/2019 Administere d FLUZONE 6MO - OLDER IM Intramuscular 07/11/2019 Administered FLUZONE 6MO - OLDER Unknown 07/10/2020 Administered Fluvirin--Influenz a vaccine 3+ year IM Intramuscular 08/09/2012 Administered Flublok IM Intramuscular 09/22/2022 Administered Flublok IM Intramuscular 06/17/2025 Administered Boostrix IM Intramuscular 06/17/2025 Administered Adacel (Tdap) IM Intramuscular 04/30/2015 Administered Problems Problem Type SNOMED Code ICD Code Onset Dates Problem Status W/U Status Risk Notes Problem Headache disorder (172393698) Other headache syndrome (G44.89) Active confirmed Problem Allergic rhinitis (89468398) Other allergic rhinitis (J30.89) Active confirmed Problem Chronic bronchitis (49804287) Unspecified chronic bronchitis (J42) Active confirmed Problem Llanos's esophagus (147820536) 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) Active confirmed Problem Pityriasis rosea (81626498) Pityriasis rosea (L42) Active confirmed Problem Trochanteric bursitis of right hip (147474274873284) Trochanteric bursitis, right hip (M70.61) Active confirmed Problem Wheezing (20856344) Wheezing (R06.2) Active confirmed Problem Trochanteric bursitis of left hip (605010392046932) Trochanteric bursitis of left hip (M70.62) Active confirmed Problem Hypothyroidism (87122847) Hypothyroidism (acquired) (E03.9) Active confirmed Problem Hyperlipidemia (89483165) Hyperlipemia, idiopathic familial (E78.5) Active confirmed Problem Essential hypertension (69925837) Hypertension, essential (I10) Active confirmed Problem Body mass index 30.00 to 34.99 (469679049870668) BMI 34.0-34.9,adult (Z68.34) Active confirmed Problem Body mass index 30.00 to 34.99 (013550042201518) BMI 31.0-31.9,adult (Z68.31) Active confirmed Problem Androgen deficiency (57516279) Androgen deficiency (E29.1) Active confirmed Problem Nephrolithiasis (54912366) Nephrolithiasis (N20.0) Active confirmed Problem Mononeuropathy of lower limb (121611538) Neuropathy of right lower extremity (G57.91) Active confirmed Problem Chronic serous otitis media of left ear (673028630) Chronic serous otitis media of left ear (H65.22) Active confirmed Problem Obstructive sleep apnea (01418139) Obstructive sleep apnea (G47.33) Active confirmed Problem Restless legs (87043789) Restless leg (G25.81) Active confirmed Problem Left rotator cuff syndrome (935026473174735) Rotator cuff syndrome of left shoulder (M75.102) Active confirmed Problem Morbid obesity (215883855) Severe obesity (BMI >= 40) (E66.01) Active confirmed Problem Sciatica (43123283) Right sided sciatica (M54.31) Active confirmed Problem Sciatica (49015295) Acute right-sided low back pain with right-sided sciatica (M54.41) Active confirmed Problem Leukocytosis (324843884) Leukocytosis, unspecified (D72.829) Active confirmed Problem Benign prostatic hypertrophy with outflow obstruction (394405473) BPH loc w urin obs/LUTS (N40.1) Active confirmed Problem Glossodynia (75328487) Tongue pain (K14.6) Active confirmed Problem Lower urinary tract symptoms due to benign prostatic hypertrophy (51744357139665) Benign prostatic hyperplasia with lower urinary tract symptoms (N40.1) Active confirmed Problem Lumbar spondylosis (502521949) Lumbar spondylosis (M47.816) Active confirmed Problem 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 Problem Intractable episodic tension-type headache (941113610385419) Intractable episodic tension-type headache (G44.211) Active confirmed Vital Signs Heart Rate 74 /min 06/17/2025 Temperature 98 degrees Fahrenheit 06/17/2025 Blood pressure diastolic 68 mm Hg 06/17/2025 Height 5 ft 9 in in 06/17/2025 Blood pressure systolic 118 mm Hg 06/17/2025 Weight 212 lbs 06/17/2025 BMI 31.3 kg/m2 06/17/2025 Encounters Encounter Location Date Provider Diagnosis [facility] [address] [facility] [address] [place] [address] 01/12/2025 Provider Migration Hypertension, essential I10 [facility] [address] [address] 06/17/2025 Mariel McNees Skin lesion L98.9 ; Routine medical exam Z00.00 ; Hypertension, essential I10 ; Hypothyroidism (acquired) E03.9 ; Hyperlipemia, idiopathic familial E78.5 ; BMI 31.0-31.9,adult Z68.31 ; Colon cancer screening Z12.11 ; Right hand pain M79.641 ; Left hand pain M79.642 ; Arthralgia of multiple joints M25.50 and Immunization(s) administered Z23 [facility] [address] [address] 06/03/2025 Kulwant Besson [facility] [address] [address] 08/22/2024 Kulwant Besson [facility] [address] [place] [address] 03/11/2025 Kulwant Besson Summers pneumoconiosis J60 [facility] [address] [place] [address] 03/12/2025 Kulwant Besson Assessments Encounter Date Diagnosis (ICD Code) Assessment Notes Treatment Notes Treatment Clinical Notes Section Notes 01/12/2025 Hypertension, essential (ICD-10 - I10) 06/17/2025 Routine medical exam (ICD-10 - Z00.00) 06/17/2025 Skin lesion (ICD-10 - L98.9) 03/11/2025 Summers pneumoconiosis (ICD-10 - J60) 06/17/2025 Hypertension, essential (ICD-10 - I10) 06/17/2025 Hypothyroidism (acquired) (ICD-10 - E03.9) 06/17/2025 Hyperlipemia, idiopathic familial (ICD-10 - E78.5) 06/17/2025 BMI 31.0-31.9,adult (ICD-10 - Z68.31) 06/17/2025 Colon cancer screening (ICD-10 - Z12.11) 06/17/2025 Right hand pain (ICD-10 - M79.641) 06/17/2025 Left hand pain (ICD-10 - M79.642) 06/17/2025 Arthralgia of multiple joints (ICD-10 - M25.50) 06/17/2025 Immunization(s) administered (ICD-10 - Z23) Plan Of Treatment Pending Test Test Name Order Date MRI : Hip, Right 12/01/2016 MRI : Hip, Right 08/04/2020 X ray : Hand, Left 06/17/2025 X ray : Hand, Right 06/17/2025 X ray : Shoulder, Left 03/23/2021 X ray : Spines, Thoracic Spine 4 Ultrasound : Thyroid 12/22/2010 EKG : In House 10/15/2010 Physical Therapy 02/16/2017 Physical Therapy 06/23/2007 Physical Therapy 06/08/2010 Physical Therapy 06/06/2017 H-CBC with AUTO DIFF 03/28/2017 H-CBC with [...] M-Vitamin B12 04/19/2019 M-Vitamin D 25 Hydroxy 02/28/2024 M-Vitamin D 25 Hydroxy 03/04/2022 M-Vitamin D 25 Hydroxy 04/19/2019 M-Testosterone, Free+Total LC/MS 019 M-Methylmalonic Acid 04/19/2019 LIPID PANEL, STANDARD (7600) 06/17/2025 COMPREHENSIVE METABOLIC PANEL (55585) URIC ACID (905) 06/17/2025 SED RATE BY MODIFIED WESTERGREN (809) C-REACTIVE PROTEIN (4420) 06/17/2025 RHEUMATOID FACTOR (4418) 06/17/2025 ROSA MULTIPLEX W/REFLEX 11 AB CASCADE (19 946) 06/17/2025 TSH W/REFLEX TO FT4 (23731) 06/17/2025 Future Test Test Name Order Date H-TESTOSTERONE 03/23/2017 M-Vitamin B12 01/08/2021 M-Vitamin D 25 Hydroxy 01/08/2021 Insurance Providers Payer Name Payer Address Payer Phone Subscriber Number Group Number Insured Name Patient Relationship to Insured Coverage Start Date Coverage End Date [facility] [address] [place] [address] [id number] Mario Lozano Self - patient is the [...] with tubular adenoma february 2018 kidney stones prostate cancer 2023 Surgical History Surgery Date(Month/Year) hernia repair oral surgery 04/07/2016- L3/L4 lumbar microdiscectomy 08/2020 Renal stent 10/2020
--- OUTSIDE RECORDS SUMMARY | 2025-06-17 13:01 | XMS_ITS | Encounter Summary ---
Author Organization Healthcare Address [address] [place] [address] Care Team Providers Care Telegraph Service Clerk Name Role Phone Kulwant Rojas MD Primary Care Provider + [phone] Jose Sprague MD Unavailable [phone] Encounter Details Date Type Department Care Team (Latest Contact Info) Description 05/27/2025 Travel Social History Tobacco Use Types Packs/Day [...] Procedure [facility] [address] [place] [address] Floridalma Espinal P, MONKEY BREEDER, DNP [address] [place] [address] 09/02/2025 1:40 PM EST Office Visit [facility] [address] [place] [address] Sherin Perdue, PA [address] [place] [address] documented as of this encounter Visit Diagnoses Not on filedocumented in this encounter Additional Health Concerns Assessment Noted Time A fall risk assessment has been complete d for the patient 12/17/2024 2:25 PM EDT A Body Mass Index follow-up plan has been documented for the patient 07/31/2024 9:40 AM EDT documented as of this encounter Care Teams Telegraph Service Clerk Relationship Specialty Start Date End Date Kulwant Rojas MD [address] [place] [address] PCP - General 02/20/21 Jose Sprague MD [address] [facility] [address] [place] [address] Consulting Physician Radiation Oncology 07/31/24 documented as of this encounter
--- OUTSIDE RECORDS SUMMARY | 2025-06-17 13:01 | XMS_ITS | Encounter Summary ---
Author Organization [facility] Address [address] [place] [address] Care Team Providers Care Cuff Matcher Name Role Phone Kulwant Rojas MD Primary Care Provider + [phone] Jose Sprague MD Unavailable [phone] Reason for Referral * Consultation (Routine) - Closed Specialty Diagnoses / Procedures Referred By Contac t Referred To Contact Urology Diagnoses Elevated PSA Kulwant Rojas MD [address] [place] [address] Phone: tel: fax: Kulwant Hairston MD [address] [facility] [address] [place] [address] Phone: tel: fax: Referral ID Status Reason Start Date Expiration Date V isits Requested Visits Authorized [id number] Closed Specialty Services Required 02/29/2024 08/30/2025 1 1 Encounter Details Date Type Department Care Team (Late st Contact Info) Description 02/29/2024 Community [facility] [address] [place] [address] Kulwant Rojas MD [address] [place] [phone] Elevated PSA (Primary Dx) Social History Tobacco [...] Procedure Visit [facility] [address] [place] [address] Floridalma Espinal P, METAL MIXER, DNP [address] [place] [address] 09/02/2025 1:40 PM EST Office Visit [facility] [address] [place] [address] Sherin Perdue, PA [address] [place] [address] Scheduled Referrals Name Type Priority Associated Diagnoses Order Schedule Ambulatory referral to Urology Outpatient Referral Routine Elevated PSA Ordered: 02/29/2024 documented as of this encounter Visit Diagnoses Diagnosis Elevated PSA- Primary Elevated prostate specific antigen (PSA) documented in this encounter Care Teams Cuff Matcher Relationship Specialty Start Date End Date Kulwant Rojas MD [address] [place] [address] PCP - General 02/20/21 Jose Sprague MD [address] [facility] [address] [place] [address] Consulting Physician Radiation Oncology 07/31/24 documented as of this encounter
--- OUTSIDE RECORDS SUMMARY | 2025-06-17 13:01 | XMS_ITS | Clinical Summary ---
Author Organization [facility] Address [address] [place] [address] Phone Care Team Providers Care Lead Warehouse Associate Name Role Phone Unavailable Primary Care Provider [...] of 2) 2017 COVID-19 Vaccine (3 - 2024- season) 2025 01/29/2021, 01/01/2021 Influenza Vaccine (#1) 2025 2, 07/08/2021, 07/10/2020, Additional history exists Meningococcal B Vaccine Aged Out No l onger eligible based on patient's age to complete this topic Insurance [facility]
--- NOTE | 2025-06-17 13:04 | XR_ITS ---
FINAL REPORT CLINICAL HISTORY: PAIN IN RIGHT AND LEFT HAND FINDINGS: AP, oblique, and lateral views of the left hand were obtained. There is no prior exam for comparison. There is no acute fracture of the left hand. There is multijoint degenerative disease. The soft tissues are normal. IMPRESSION: Multijoint degenerative disease. Reviewed, Interpreted and Dictated by Areli Beard MD Transcribed by Ivette Capellan Authenticated and [facility]
--- NOTE | 2025-06-17 13:04 | XR_ITS ---
FINAL REPORT CLINICAL HISTORY: PAIN FINDINGS: AP, lateral and oblique views of the right hand were obtained. There is no prior exam for comparison. There is no acute fracture or dislocation. There is multi joint degenerative disease. The soft tissues are normal. IMPRESSION: Multijoint degenerative disease. Reviewed, Interpreted and Dictated by Areli Beard MD Transcribed by Ivette Capellan Authenticated and [facility]
== END 2025-06-17 23:59 | disposition home or self-care (01) ==
LOC: RAD 12:58
PROVIDERS: PCP Internal Medicine Adolescent Medicine; Visit Provider Nurse Practitioner Family
DX: M19.042 Primary osteoarthritis, left hand (principal); M19.041 Primary osteoarthritis, right hand
CPT/HCPCS: 73130

== ENCOUNTER 2025-07-18 09:27 | Outpatient (CLI) | payer BC, SELFPAY ==
--- NOTE | 2025-07-18 09:31 | MR_ITS ---
FINAL REPORT TECHNIQUE: Multiplanar and multisequence imaging of the brain was obtained without contrast. CLINICAL HISTORY: FREQUENT HEADACHES/SCALP TENDERNESS. LEFT SIDED OCCIPITAL HEADACHE. HX PROSTATE CANCER. CONFUSION FINDINGS: There is no mass effect or midline shift. There is moderate periventricular and subcortical white matter changes. No hydrocephalus. The cerebellum and brainstem have an unremarkable appearance. There are no areas of restricted diffusion on diffusion weighted images to suggest acute infarct. There is a mucous retention cyst or polyp in the floor of the right maxillary sinus. IMPRESSION: No acute intracranial abnormality. Moderate foci of white matter signal changes, favor chronic but demyelinating disease is not excluded. Reviewed, Interpreted and Dictated by Areli Beard MD Transcribed by Ivette Capellan Authenticated and [facility]
== END 2025-07-18 23:59 | disposition home or self-care (01) ==
LOC: RAD 09:27
PROVIDERS: PCP Internal Medicine Adolescent Medicine; Visit Provider Nurse Practitioner Family
DX: R90.82 White matter disease, unspecified (principal); R51.9 Headache, unspecified
CPT/HCPCS: 70551

== ENCOUNTER 2025-08-21 09:44 | Outpatient (CLI) | payer BC, SELFPAY ==
--- OUTSIDE RECORDS SUMMARY | 2025-06-27 14:00 | XMS_ITS | Encounter Summary ---
Author Organization [facility] Address [address] [place] [id number] Care Team Providers Care Oncology Physician Assistant Name Role Phone Kulwant Rojas MD Primary Care Provider [phone] Reason for Visit * Reason Comments Abnormal Lab + ROSA testSSA test + Joint Pain Osteoarthritis Encounter Details Date Type Department Care Team (Latest Contact Info) Description 06/27/2025 3:00 PM EDT Office Visit [facility] [address] [address] John Cristina DO [address] [id number] ROSA positive (Primary Dx); Arthralgia, unspecified joint; Abnormal laboratory test; Primary osteoarthritis involving multiple joints Social History Tobacco Use Types Packs/Day Years Used Date Smoking Tobacco: Never Passive Smoke Exposure: Never Smokeless Tobacco: Current Chew Tobacco Cessation:Ready to Q uit: Not Asked; Counseling Given: Not Answered Alcohol Use Standard Drinks/Week Comments Yes 0 (1 standard drink = 0.6 oz pur e alcohol) Rarely Abuse Screen Answer Date Recorded Unsafe at Home or Work/School Not on file Feels Threatened by Someone? Not on file 06/2023 Does Anyone Keep You from Co ntacting Others or Doint Things Outside the Home? Not on file 07/18/2023 Physical Sign of Abuse Present Not on file 1 Housing Stability Answer Date Recorded Current Living Arrangements Not on file 06/2023 Potentially Unsafe Housing Conditions Not on carlos e 07/18/2023 Family and Community Support Answer Champ e Recorded Help with Day-to-Day Activities Not on file 07/18/2023 Lonely or Isolated Not on file 07/18/2023 Employment Answer Date Recorded Do you want help finding or keeping work or a jaron b? Not on file 07/18/2023 Disabilities Answer Date Recorded Concentrating, Remembering, or Making Decisions Difficulty Not on file 07/18/2023 Doing Errands Independently Difficulty Not on fi le 07/18/2023 Education Answer Date Recorded Help with school or training? Not on file Preferred Language Not on file 07/18/2023 Sex and Gender Information Value Date Recorded Sex Assigned at Not on file Legal Sex Male 1:16 PM EDT Gender Identity Not on file Sexual Orientation Not on file Occupation Industry Job Start Date Job End Date Retired Not on file Not on file Not on file documented as of this encounter Last Filed Vital Signs Vital Sign Reading Time Taken Comments Blood Pressure 126/80 06/27/2025 3:11 PM EDT Pulse 65 06/27/2025 3:11 PM EDT Temperature 36.9 C (98.5 F) 06/27/2025 3:11 PM EDT Respiratory Rate - - Oxygen Saturation - - Inhaled Oxygen Concentration - - Weight 96 kg (211 lb 11.2 oz) 06/27/2025 3:11 PM EDT Height 177.8 cm (5' 10 ) 06/27/2025 3:11 PM EDT Body Mass Index 30.38 06/27/2025 3:11 PM EDT documented in this encounter Patient Instructions * Attachments The following attachments cannot be sent through Care Everywhere. * Sjogren's Syndrome (Bhutanese) documented in this encounter Progress Notes * John Cristina DO - 06/27/2025 3:00 PM EDTAssociated Problem(s): Primary osteoarthritis involving multiple joints Tylenol PRN is ok as directed He has seen an orthopaedic surgeon He has had trigger finger injection in the past. He has had back surgery * John Cristina, - 06/27/2025 3:00 PM EDT Images from the original note were not included. Office Visit Date: 06/27/2025 Patient Name: Mario Lozano Date of : 1965 Referring Physician: Mariel Navas APRN Chief Complaint Patient presents with Abnormal Lab + ROSA test SSA test + Joint Pain Osteoarthritis History of Present Illness: Mario Lozano is a 59 y.o. male who is here today at the request of Mariel Navas APRN. The referral indicates that he is ROSA test positive. Now there is concern that he may have an autoimmune illness. 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 He saw rheumatology in the past. His SSA test is also positive No recent serious injuries or infections. No fever. He is fatigued. No history of psoriasis or Raynaud's. No history of uveitis, iritis, or scleritis. No oral, nasal, or genital ulcers. Recently he had an episode where a finger on his right hand was swollen and painful. He was given colchicine for possible gout. He has no prior history of gout in his feet or ankles or anywhere else. Today he rates his pain as 2.5/10 in severity. He has 1 hour/day of morning stiffness. His back hurts. His neck is stiff. No joint swelling. No muscle pain or weakness. No red or hot joints. No rash. No hair loss. No shortness of breath or chest pain. No GI or issues. No lymphadenopathy. No abnormal bruising/bleeding. No headaches or paresthesias. No trouble swallowing. No salivary gland enlargement. He reports he does not like to take medication. Medication/treatment/interventions tried include: Tylenol, colchicine, He has seen an orthopaedic surgeon, He has had trigger finger injection, back surgery Studies reviewed included: 06/17/25: CMP was fine, Uric acid was 6.9, ESR 2.0, CRP normal, RF negative, ROSA screen positive, DS DNA normal, Olvera normal, Sm/EXHAUSTER normal, EXHAUSTER normal, Chromatin normal, SSA 6.0 (<1.0 normal), SSBnegative, SCL 70 normal, Jaron 1 normal, TSH normal Subjective Review of Systems Constitutional: Positive for fatigue. HENT: Negative. Eyes: Negative. Respiratory: Positive for apnea. Cardiovascular: Negative. Gastrointestinal: Negative. Endocrine: Negative. Genitourinary: Negative. Musculoskeletal: Positive for arthralgias, back pain and neck stiffness. Skin: Negative. Allergic/Immunologic: Negative. Neurological: Negative. Hematological: Negative. Psychiatric/Behavioral: Negative. All other systems reviewed and are negative. Past Medical History: Diagnosis Date Arthritis Gout Kidney stones Prostate cancer 07/2024-10/2024 Past Surgical History: Procedure Laterality Date BACK SURGERY Pinched Nerve L3 HERNIA REPAIR 1982 PROSTATECTOMY Family History Problem Relation Age of Onset Arthritis Mother Lung cancer Mother Brain cancer Mother Heart disease Father Social History Socioeconomic History Marital status: Spouse name: Anyi Tobacco Use Smoking status: Never Passive exposure: Never Smokeless tobacco: Current Types: Chew Vaping Use Vaping status: Never Used Substance and Sexual Activity Alcohol use: Yes Comment: Rarely Drug use: Never Sexual activity: Defer Current Outpatient Medications: albuterol sulfate HFA 108 (90 Base) MCG/ACT inhaler, Inhale 2 puffs., Disp: , Rfl: colchicine 0.6 MG tablet, TAKE 2 TABLETS BY MOUTH ON THE FIRST DAY THEN 1 TAB ONCE DAILY FOR 7 DAYS, Disp: , Rfl: ibuprofen (ADVIL,MOTRIN) 200 MG tablet, Take 1 tablet by mouth Every 6 (Six) Hours As Needed for Mild Pain., Disp: , Rfl: sildenafil (VIAGRA) 100 MG tablet, Take 1 tablet by mouth Daily As Needed for Erectile Dysfunction., Disp: , Rfl: valsartan (DIOVAN) 320 MG tablet, 1 tablet Daily., Disp: , Rfl: Zepbound 7.5 MG/0.5ML solution auto-injector, INJECT 1 AUTO-INJECTOR SUBCUTANEOUSLY ONCE A WEEK, Disp: , Rfl: No Known Allergies I reviewed the patient's chief complaint, history of present illness, review of systems, past medical history, surgical history, family history, social history, medications and allergy list. Objective Vitals: 06/27/25 1511 BP: 126/80 BP Location: Right arm Pulse: 65 Temp: 98.5 ??F (36.9 ??C) Weight: 96 kg (211 lb 11.2 oz) Height: 177.8 cm (70 ) PainSc: 0-No pain Body mass index is 30.38 kg/m??. Physical Exam General: Well appearing 59 year old male. Not in distress. He is ambulating unassisted. SKIN: No rashes. No alopecia. No subcutaneous nodules. No digital pits or ulcers. No sclerodactyly. HEENT: NCAT. Conjunctiva clear, no photophobia. No oral or nasal ulcers. Hearing intact. Pulmonary: Clear to auscultation bilaterally. No wheezing, rales, or rhonchi. CV: Regular rate and rhythm. No murmurs, rubs, or gallops. Psych: Normal mood and affect. Alert and oriented x 3. Extremities: No cyanosis or edema. Musculoskeletal: No joint swelling or tenderness to palpation. No warmth or erythema. Normal range of motion of the wrists, ankles, elbows, and knees. Lymph: No palpable cervical adenopathy Procedures Assessment / Plan Assessment & Plan Arthralgia, unspecified joint 06/17/25: CMP was fine, Uric acid was 6.9, ESR 2.0, CRP normal, RF negative, ROSA screen positive, DS DNA normal, Olvera normal, Sm/EXHAUSTER normal, EXHAUSTER normal, Chromatin normal, SSA 6.0 (<1.0 normal), SSBnegative, SCL 70 normal, Jaron 1 normal, TSH normal He was recently found to be ROSA and SSA +. See below. At age 59 he most certainly has some osteoarthritis. See below. He reports he had recent hand x-rays. We will request these reports from his PCP He was recently given colchicine for possible gout. I am not sure If what he had in his hand was due to gout. Gout typically starts in the feet/ankles. He denies have any episodes in these areas Pseudogout might be a possibility here Trigger finger would also be on our differential here. He has had trigger finger problems before. Inflammation markers being elevated make inflammatory arthritis less likely. Gout and pseudogout would typically create a lot of inflammation. We gave him a handout on Sjogren's to take home and review. Follow up in 3-4 months He told me he does not like to take medication He is relatively asymptomatic today. Abnormal laboratory test He was SSA positive. We most often see this in patient's with Sjogren's syndrome. He denies having any sicca symptoms. ROSA positive Patient's with cutaneous lupus can be ROSA and Sjogren's antibody test positive. He does not have any rash His other autoantibody tests were normal Inflammatory markers were normal RF was negative. Primary osteoarthritis involving multiple joints Tylenol PRN is ok as directed He has seen an orthopaedic surgeon He has had trigger finger injection in the past. He has had back surgery Follow Up: Return in about 3 months (around 09/26/2025). John Cristina DO [facility] [place] documented in this encounter Plan of Treatment Upcoming Encounters Date Type Department Care Team (Late st Contact Info) Description 10/31/2025 1:00 PM EST Office Visit [facility] [address] [address] Luis A Matamoros, VINEET [address] [address] documented as of this encounter Visit Diagnoses Diagnosis ROSA positive- Primary Arthralgia, unspecified joint Abnormal laboratory test Other abnormal clinical finding Primary osteoarthritis involving multiple joints documented in this encounter Care Teams Oncology Physician Assistant Relationship Specialty Start Date End Date Kulwant Rojas MD [address] [facility] [address] [address] PCP - General Adolescent Medicine 06/27/25 documented as of this encounter
--- OUTSIDE RECORDS SUMMARY | 2025-07-02 09:10 | XMS_ITS | Encounter Summary ---
Author Organization [facility] Address [address] [place] [address] Care Team Providers Care Speech Professor Name Role Phone Kulwant Rojas MD Primary Care Provider [phone] Jose Sprague MD Unavailable [phone] Floridalma Espinal APRN, EDWIGE Unavailable [phone] Reason for Visit * Reason Comments Follow-up Encounter Details Date Type Department Care Team (Latest Contact Info) Description 07/02/2025 10:10 AM EDT Procedure Visit [facility] [address] [place] [address] Floridalma Espinal, VINEET, DNP [address] [place] [address] Erectile dysfunction after radical prostatectomy (Primary Dx) Social History Tobacco Use Types Packs/Day Years Used Date Smoking Tobacco: Never Smokeless Tobacco: Current Snuff Tobacco Cessation:Ready to Q uit: Not Asked; Counseling Given: Not Answered Alcohol Use Standard Drinks/Week Comments Not Currently 0 (1 standard drink = 0.6 oz pure alcohol) Alcoholic Drinks/day: Never Drank Alcohol PHQ-2 Answer Date Recorded Patient Health Questionnaire-2 Score 0 07/02/2025 PHQ-9 Answer Date Recorded Patient Health Questionnaire-9 Score 0 06/03/2025 Sex and Gender Information Value Date Recorded Sex Assigned at Male 05/09/2024 8:42 AM EDT Legal Sex Male 8:35 PM EDT Gender Identity Male 05/09/2024 8:42 AM EDT Sexual Orientation Straight 05/09/2024 8: 42 AM EDT documented as of this encounter Last Filed Vital Signs Vital Sign Reading Time Taken Comments Blood Pressure 167/84 07/02/2025 10:22 AM EDT Pulse 61 07/02/2025 10:22 AM EDT Temperature - - Respiratory Rate 14 07/02/2025 10:22 AM EDT Oxygen Saturation - - Inhaled Oxygen Concentration - - Weight 98 kg (216 lb 0.8 oz) 07/02/2025 10:22 AM EDT Height - - Body Mass Index 31 06/03/2025 1:54 PM EDT documented in this encounter Functional Status * Over the past 2 weeks, how often have you been bothered by any of the following problems? Question Answer Date of Assessment Author Little interest or pleasure in doing things Not at all 07/02/2025 10:10 AM EDT Camilla Solorzano Feeling down, depressed, or hopeless Not at all 07/02/2025 10:10 AM EDT Camilla Solorzano Patient Health Questionnaire -2 Score 0 07/02/2025 10:10 AM EDT Camilla Solorzano * How difficult have these problems made it for you to do your work, take care of things at home, or get along with other people? Answer Date of Assessment Author Not difficult at all 07/02/2025 10:10 AM EDT Camilla Ramirez documented as of this encounter Miscellaneous Notes * Progress Notes - Floridalma Espinal, CLERICAL OFFICE WORKER, DNP - 07/02/2025 10:10 AM EDT [facility] Visit CC: erectile dysfunction HPI: Mario Lozano is a 59 y.o. male with history of prostate cancer s/p RALP (10/23/24) with pathology Salazar 3+4=7 (GrGp2), with positive margin at left bladder neck and left anterior gland. 8/8 nodes negative. PSA has been undetectable. He has erectile dysfunction that has been partially responsive to oral PDE5i. He is here today for Trimix injection trial and teaching. [facility]. Physical Exam: Visit Vitals BP (!) 167/84 Pulse 61 Resp 14 Wt 98 kg (216 lb 0.8 oz) BMI 31.00 kg/m?? Smoking Status Never BSA 2.2 m?? General: Alert, in no acute distress, well appearing. Pulmonary: No increased work of breathing or signs of respiratory distress. Gastrointestinal: Abdomen non distended. Obese. Musculoskeletal: Normal ROM of UEs. Normal gait and station. Skin: Warm, dry, and intact. No obvious rashes/open sores. Neurologic: CN 2-12 grossly intact. Psychiatric: oriented to person, place, and time. Mood and affect appeared normal. Hematologic/Lymphatic/Immunologic: No obvious bruises or sites of spontaneous bleeding. Genitourinary: circumcised penis without lesions, patent meatus. Procedures: The procedure was discussed with the patient. Verbal consent was obtained. The patient's penile shaft was prepped with alcohol wipes. His left proximal penile shaft was injected with 0.05 mL Trimix. He was reassessed in 15 minutes and was found to have an excellent response. He tolerated the procedure well. He was advised to report to the ED should erection last longer than 4 hours. Assessment: 59 y.o. male with ED that has not been responsive to PDE5i. He had an excellent response to Trimix injection today in the office. In his case, recommend starting with a 0.05 - 0.10 ml (5-10 unit) dose and titrating upwards in increments of 0.02 mL (2 units) until suitable response with maximum doseof 0.50 mL (50 units). He has enough Trimix remaining for him to try this several times at home with increasing doses. He was instructed on the use of Trimix - including proper storage of the medication, proper injection technique, and rotation of the injection site. Discussed should erection last 2 hours, would advise ice to the base of the penis, cold shower, and use of Sudafed (120 mg as a onetime dose). We discussed the importance of presenting to the ED with a prolonged erection lasting longer than 4 hours. He was given a patient education sheet about penile self-injection therapy. Willfollow up in 6 weeks via [facility]. If he develops issues in the interim, he knows to contact the office. Plan: - Try Trimix at home with increasing doses until suitable response. - Follow up in 6 weeks via [facility]. In addition to the time spent performing the Trimix injection, the visit included 30 minutes for evaluation and management. documented in this encounter Plan of Treatment Upcoming Encounters Date Type Department Care Team (Late st Contact Info) Description 08/27/2025 10:50 AM EST Office Visit [facility] Urology [address] [place] [address] Floridalma Espinal APRN, DNP [address] [place] [address] 08/29/2025 1:45 PM EST Consult [facility] [address] [place] [address] Brendon Davidson MD [address] [facility] [address] [place] [address] 09/02/2025 1:40 PM EST Office Visit [facility] Multidisciplinary Oncology Clinic [address] [place] [address] Sherin Perdue PA [address] [facility] [address] [place] [id number] documented as of this encounter Visit Diagnoses Diagnosis Erectile dysfunction after radical prostatectomy- Primary documented in this encounter Administered Medications Inactive Administered Medications - up to 3 most recent administrations Medication Order MAR Action Action Date Dose Rate Site zpdarknrjvi-yxfaqcgogwhm-lhuxxrnz ne (Trimix) 20-1-30 mcg-mg-mg/mL intracavernosal injection 0.05 mL 0.05 mL, Intracavernosal, Once, 1 dose, On Tue07/02/25 at 1145, RoutineIndications:Erectile dysfunction after radical prostatectomy Given 07/02/2025 10:59 AM EDT 0.05 mL documented in this encounter Additional Health Concerns Assessment Noted Time PHQ-9 Depression Total Score: 0 06/03/20 1:56 PM EDT A fall risk assessment has been complete d for the patient 07/02/2025 10:10 AM EDT A Body Mass Index follow-up plan has been documented for the patient 07/02/2025 11:12 AM EDT documented as of this encounter Care Teams Speech Professor Relationship Specialty Start Date End Date Kulwant Rojas MD [address] [place] [address] PCP - General 02/20/21 Jose Sprague MD [address] [place] [address] Consulting Physician Radiation Oncology 07/31/24 Floridalma Espinal, VINEET, DNP [address] [place] [address] Nurse Practitioner Urology 07/02/25 documented as of this encounter
--- OUTSIDE RECORDS SUMMARY | 2025-08-21 09:50 | XMS_ITS | Encounter Summary ---
Author Organization Healthcare Address [address] [place] [address] Care Team Providers Care Tribunal Member Name Role Phone Kulwant Rojas MD Primary Care Provider + [phone] Jose Sprague MD Unavailable [phone] Encounter Details Date Type Department Care Team (Late st Contact Info) Description 07/01/2025 Orders Only [facility] [address] [place] [address] Floridalma Espinal APRN, EDWIGE [address] [place] [address] Social History Tobacco Use Types Packs/Day Years [...] 8:42 AM EDT Sexual Orientation Straight 05/09/2024 8 :42 AM EDT documented as of this encounter Miscellaneous Notes * Progress Notes - Floridalma Espinal APRN, EDWIGE - 07/01/2025 2:39 PM EDT Rx for Trimix and syringes sent to [facility] for scheduled trial. documented in this encounter Plan of Treatment Upcoming Encounters Date Type Department Care Team (Late st Contact Info) Description 08/27/2025 10:50 AM EST Office Visit [facility] [address] [place] [address] Floridalma Espinal APRN, DNP [address] [place] [address] 08/29/2025 1:45 PM EST Consult [facility] [address] [place] [address] Brendon Davidson MD [address] [place] [address] 09/02/2025 1:40 PM EST Office Visit [facility] [address] [place] [address] Sherin Perdue PA [address] [place] [address] documented as of this encounter Visit Diagnoses [...] documented as of this encounter Care Teams Tribunal Member Relationship Specialty Start Date End Date Kulwant Rojas MD [address] [place] [address] PCP - General 02/20/21 Jose Sprague MD [address] [address] Consulting Physician Radiation Oncology 07/31/24 documented as of this encounter
--- OUTSIDE RECORDS SUMMARY | 2025-08-21 09:50 | XMS_ITS | Clinical Summary ---
Author Organization [facility] Address [address] [place] [address] Phone Care Team Providers Care Poultry Slaughterer Name Role Phone Unavailable Primary Care Provider [...] 2) 2017 COVID-19 Vaccine (3 - season) 2025 01/29/2021, 01/01/2021 Influenza Vaccine (#1) 2025 2, 07/08/2021, 07/10/2020, Additional history exists Meningococcal B Vaccine Aged Out No l onger eligible based on patient's age to complete this topic Insurance [employer]FREDO PPO
--- OUTSIDE RECORDS SUMMARY | 2025-08-21 09:50 | XMS_ITS | Encounter Summary ---
Author Organization Healthcare Address [address] [place] [address] Care Team Providers Care Sales Service Assistant Name Role Phone Kulwant Rojas MD Primary Care Provider + [phone] Jose Sprague MD Unavailable [phone] Encounter Details Date Type Department Care Team (Latest Contact Info) Description 07/01/2025 Travel Social History Tobacco Use Types Packs/Day [...] Description 08/27/2025 10:50 AM EST Office Visit [facility] [address] [place] [address] Floridalma Espinal, [employer], DNP [address] [place] [address] 08/29/2025 1:45 PM EST Consult [place] [facility] [address] [place] [address] Brendon Davidson MD [address] [place] [address] 09/02/2025 1:40 PM EST Office Visit [facility] [address] [place] [address] Sherin Perdue PA [address] [place] [address] documented as of this encounter [...] documented as of this encounter Care Teams Sales Service Assistant Relationship Specialty Start Date End Date Kulwant Rojas MD [address] [facility] [address] [place] [address] PCP - General 02/20/21 Jose Sprague MD [address] [facility] [address] [place] [address] Consulting Physician Radiation Oncology 07/31/24 documented as of this encounter
--- OUTSIDE RECORDS SUMMARY | 2025-08-21 09:51 | XMS_ITS | Data Portability ---
Author Organization [place] - Nemesio arriaza, [place] [facility] Address [address] [facility] [address] [place] [address] Care Team Providers Care Industrial Photographer Name Role Phone FRANCES WIGGINS Primary Care [...] decompressed for a while. He works at [employer]. He'll need to be out of work [...] for staple removal. Incision is well healed. [place] were removed. Pt is doing well. Tolerated the procedure well. [email or web address] Not available 09/02/2020 16:05:36 09/18/2020 09/18/2020 Mr. Lozano is doing very well after undergoing a far lateral discectomy. Pain is resolved. He works at [employer]. I will get him in for lumbar [...] (PROC ) No observ ation record ed. [email or web address] [address] [facility] [address], [place], [address], 08/29/2020 13:50:33 04/13/20 22 04/02/2022 MRI, lumba r spine , w/wo contr ast No observ ation record ed. [facility] [address], [place], [address], 05/25/2022 14:46:27 05/03/20 22 04/02/2022 MRI, lumba r spine , w/o contr ast No observ ation record ed. [facility] [address], [place], [address], 05/05/2022 13:18:51 Result Notes None recorded. Procedures Surgical History Date Name Laterality Status Provider Name and Address Organization Details Recorded Time 08/18/20 TRANSPEDICULAR SPINAL DECOMPRESSION, LUMBAR (SURG) completed Alena Hand [facility] 09/02/2020 14:55:38 Hernia repair w/mesh completed Yaritza Alfaro [facility] 08/14/2020 09:16:55 Imaging Results None recorded. Procedure [...] Updated DateTime 05/04/2022 177.8 cm 34.3 kg/m2 426717.5 8 g 59 /min 139/69 mm[Hg] [facility] 05/04/2022 14:46:13 Date Recorded Body height Body mass index (BMI) Body weight Heart rate Systolic And Diastolic Provider Name and Address Organization Details Last Updated DateTime 08/14/2020 177.8 cm 33 kg/m2 372127.2 5 g 75 /min 146/79 mm[Hg] [facility] 08/14/2020 09:15:43 Social History None recorded. [...] Diagnosis SNOMED-CT Code Diagnosis ICD10 Code Diagnosis IMO Codes Diagnosis Note [id number] LEXUS FARRAR MD [facility] [address] [place] [address] 08/14/2020 08:34:10 08/14/2020 14:40:44 Lumbar disc prolapse with radiculopathy 556188469 M51.16 [id number] LEXUS FARRAR MD [facility] [address] [place] [address] 09/02/2020 15:27:40 09/02/2020 16:08:33 [id number] LEXUS FARRAR MD SURGERY SCHEDULE [address] [place] [address] 09/05/2020 12:56:39 09/05/2020 13:16:31 [id number] LEXUS FARRAR MD [facility] [address] [place] [address] 09/18/2020 09:29:24 09/18/2020 10:23:18 Prolapsed lumbar intervertebral disc 402575893 M51.26 [id number] LEXUS FARRAR MD [facility] [address] [place] [address] 05/04/2022 13:38:36 05/10/2022 13:52:27 Lumbar spondylosis 900913202 M47.896 Health Concerns Section Related Observation LastModified by Organization Detai ls LastModified Time None Recorded Concern Status LastModified by Organization Details LastModified Time None Recorded Advance Directives Directive None Recorded Payers Insurance Date Sequence Insurance Name Policy Number Policy Lang Covered Member ID Lang Member ID Guarantor Name 07/10/2024 1 [place] [id number] Mario Lozano [id number] 20 Mario Lozano 09/05/2020 2 [employer] [id number] Mario Lozano [id number] 20 Mario Lozano Notes Date Note Type [...] of the pain. LEXUS FARRAR MD [address] [place], [address], [facility] 08/14/2020 10:16:02 09/18/2020 text/html I saw Mr. Lozano. I performed a right L3-4 far lateral microlumbar discectomy on August 18, 2020. He has a very small amount and numbness in the anterior medial right thigh. He has no pain. He's happy. LEXUS FARRAR MD [address] [place] [address], [address], [facility] 09/18/2020 10:23:15 05/04/2022 text/html I saw [...] time. He was on vacation at the [facility] last week and it was being relatively sedentary. He states it is a lot better than it was when he had the MRI scan performed recently. He's had no conservative treatment. LEXUS FARRAR MD [address] [place] [address] [place], [address], [facility] 05/04/2022 14:57:07
--- OUTSIDE RECORDS SUMMARY | 2025-08-21 09:51 | XMS_ITS | Clinical Summary ---
Author Organization [facility] Address [address] [place] [address] Care Team Providers Care Machine Joint Cutter Name Role Phone Kulwant Rjoas MD Primary Care Provider [phone] Allergies No known active allergies Medications valsartan (DIOVAN) 320 MG tablet 1 tablet Daily. Acti ve colchicine 0.6 MG tablet TAKE 2 TABLETS BY MOUTH ON THE FIRST DAY THEN 1 TAB ONCE DAILY FOR 7 DAYS 5 Active albuterol sulfate HFA 108 (90 Base) MCG/ACT inhaler Inhale 2 puffs. Acti ve Zepbound 7.5 MG/0.5ML solution auto-injector INJECT 1 AUTO-INJECTOR SUBCUTANEOUSLY ONCE A WEEK 5 Active sildenafil (VIAGRA) 100 MG tablet Take 1 tablet by mouth Daily As Needed for Erectile Dysfunction. 5 Active ibuprofen (ADVIL,MOTRIN) 200 MG tablet Take 1 tablet by mouth Every 6 (Six) Hours As Needed for Mild Pain. Active Active Problems Problem Noted Date Diagnosed Date Primary osteoarthritis involving multiple joints 06/27/2025 Assessment & Plan (06/27/2025 4:01 PM EDT): Tylenol PRN is ok as directed He has seen an orthopaedic surgeon He has had trigger finger injection in the past. He has had back surgery Encounters Date Type Department Care Team Description 07/02/2025 Results Follow-Up [facility] [address] [address] John Cristina DO 06/27/2025 3:00 PM EDT Office Visit [facility] RHE[facility]OLOG[facility] [address] [address] John Cristina DO ROSA positive (Primary Dx); Arthralgia, unspecified joint; Abnormal laboratory test; Primary osteoarthritis involving multiple joints 06/27/2025 Travel from Last 3 Months Family History Medical History Relation Name Comments Heart disease Father Arthritis Mother Brain cancer Mother Lung cancer Mother Relation Name Status Comments Father Mother Social History Tobacco Use Types Packs/Day Years [...] file Not on file Not on file Last Filed Vital Signs [...] Mass Index 30.38 06/27/2025 3:11 PM EDT Plan of Treatment Upcoming Encounters Date Type Department Care Team (Late st Contact Info) Description 10/31/2025 1:00 PM EST Office Visit [facility] 330 [facility] [address] [place] [address] Luis A Matamoros, VINEET [address] [facility] [address] [place] [address] Health Maintenance Due Date Last Done Comments COLOGUARD 2012 COLON CANCER SCREENING 5 YEA R SIGMOIDOSCOPY 2012 COLONOSCOPY [address] CANCER SCREENING 2012 CT COLONOGRAPHY 2012 FECAL OCCULT BLOOD TEST 2012 FIT Testing (1 year) 2012 Pneumococcal Vaccine 50+ (1 of 1 - PCV) 2017 ZOSTER VACCINE (1 of 2) 2017 ANNUAL PHYSICAL 06/27/2025 HEPATITIS C SCREENING 06/27/2025 TDAP/TD VACCINES (2 - Td or Tdap) 06/17/2035 025 INFLUENZA VACCINE Completed 06/17/2025, , 09/22/2022, Additional history exists Procedures Procedure Name Priority Date/Time Associated Diagnosis Comments SCANNED - LABS 06/17/2025 SCANNED - IMAGING 06/17/2025 from Last 3 Months Results * IMAGING SCANNED (06/17/2025) Anatomical Region Laterality Modality Radiographic Jayna ging John Cristina DO IMG DIAGNOSTIC IMAGING ORDERABLES Final Result * LABS SCANNED (06/17/2025) [facility] Onbase LAB BLOOD ORDERABLES Final Re sult from Last 3 Months Insurance LUIS ALFREDO [facility] PPO Care Teams Machine Joint Cutter Relationship Specialty Start Date End Date Kulwant Rojas MD [address] [place] [address] PCP - General Adolescent Medicine 06/27/25
--- OUTSIDE RECORDS SUMMARY | 2025-08-21 09:51 | XMS_ITS | Encounter Summary ---
Author Organization [facility] Address [address] [place] [address] Care Team Providers Care Mathematical Physicist Name Role Phone Kulwant Rojas MD Primary Care Provider [phone] Encounter Details Date Type Department Care Team (Latest Contact Info) Description 06/27/2025 Travel Social History Tobacco Use Types Packs/Day Years Used Date Smoking Tobacco: Never Passive Smoke Exposure: Never Smokeless Tobacco: Current Chew Alcohol Use Standard Drinks/Week Comments Yes 0 [...] on file documented as of this encounter Plan of Treatment Upcoming Encounters Date Type Department Care Team (Late st Contact Info) Description 10/31/2025 1:00 PM EST Office Visit [facility] RHE[facility]OLOGY [address] [phone] Luis A Matamoros, CARPET CLEANER 330 [facility] 100 [place] [address] documented as of this encounter Visit Diagnoses Not on filedocumented in this encounter Care Teams Mathematical Physicist Relationship Specialty Start Date End Date Kulwant Rojas MD 1210 [facility] [address] [facility] [address] [place] [address] PCP - General Adolescent Medicine 06/27/25 documented as of this encounter
--- OUTSIDE RECORDS SUMMARY | 2025-08-21 09:51 | XMS_ITS | Clinical Summary ---
Author Organization [facility] Address [address] [place] [address] Phone [email or web address] Care Team Providers Care Sand Tester Name Role Phone Jarrellfili Kulwant Primary Care Provider [phone] Allergies No known active allergies Medications verapamil [...] Immunization Administration Dates Next Due Covid-19 (Moderna [place], 12yrs+) (CVX-207) 2020,01/01/2021 Social History Tobacco Use [...] Health Maintenance Due Date Last Done Comments CT Colonography 1967 Colonoscopy 1967 Colorectal Cancer Screening Combo 1967 DNA Cologuard 1967 Dental Cleaning/Exam 1967 FIT or FOBT Test 1967 HIV Screening 1967 Hepatitis C Screening 1967 Sigmoidoscopy 1967 Annual Preventive Exam 1985 Hep B Infection Screening - Triple Screen 1985 Hepatitis B Immunization (1 of 3 - 19+ 3-dose series) 1986 Tetanus Diphtheria and Pertussis Immunization (1 - Tdap) 1986 Zoster Immunization (1 of 2) 1986 Pneumococcal: 50+ Years (1 of 1 - PCV) 2017 Covid-19 Immunization (3 - Moderna risk series) [...] topic Insurance LUIS ALFREDO [place] [id number] [place] [address] Care Teams Sand Tester Relationship Specialty [place] [address] PCP - General Biblical Languages Professor 03/14/20
--- OUTSIDE RECORDS SUMMARY | 2025-08-21 09:51 | XMS_ITS | Clinical Summary ---
Author Organization [facility] Address [address] [place] [address] Care Team Providers Care Chummer Name Role Phone Kulwant Rojas MD Primary Care Provider [phone] Jose Sprague MD Unavailable [phone] Floridalma Espinal APRN, [facility] Unavailable [phone] Allergies No known active allergies Medications albuterol [...] (320 mg) by mouth in the morning. 08/16/20 24 Active verapamil ER (Veralan PM) 180 MG 24 hr capsule Take 1 capsule (180 mg) by mouth nightly. Do not crush or chew. Active tadalafil (Cialis) 20 MG tablet Take 1 tablet (20 mg) by mouth 1 (one) time each day if needed for erectile dysfunction. 30 tablet 3 11/09/19 25 Active Additional Information Patient not taking.Reported on 07/02/2025 NON FORMULARY SYRINGE WITH NEEDLE 3 ML 22 X 1 1/2 Active sildenafil (Viagra) 100 MG tabletIndications: Erectile dysfunction after radical prostatectomy Take 1 tablet by mouth daily as needed for erectile dysfunction. 15 tablet 3 06/03/20 25 Active alprostadil-phento delonte-papaverine (Trimix) 20-1-30 mcg-mg-mg/mL intracavernosal injection APPOINTMENT #1 TRIAL. Use as directed. 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 12/01/2012 [place] workers pneumoconiosis 12/01/2012 Gastro-esophageal reflux disease without esophag itis 12/01/2012 Hypothyroidism 12/01/2012 Essential hypertension 12/02/2011 Overview (03/07/2024): 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 Overview (03/07/2024): Disorder of esophagus 06/30/2010 Overview (03/07/2024): Circadian rhythm sleep disorder, 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 Overview (03/07/2024): Lymphocytosis 11/07/2007 Overview (03/07/2024): Resolved Problems Problem Noted Date Diagnosed Date Resolved Date Chest pain 03/07/2024 06/30/2025 Pneumonia 03/07/2024 06/30/2025 Encounters Date Type Department Care Team Description 07/19/2025 Community Orders Community Practice [address] [place] [address] Mariel Navas APRN White matter abnormality on MRI of brain (Primary Dx) 07/02/2025 10:10 AM EDT Procedure Visit [facility] Urology [address] [place] [address] Floridalma Espinal APRN, EDWIGE Erectile dysfunction after radical prostatectomy (Primary Dx) 07/02/2025 Travel 07/01/2025 Orders Only [facility] Urology [address] [place] [address] Floridalma Espinal APRN, EDWIGE 07/01/2025 Travel 06/03/2025 2:00 PM EDT Office Visit [facility] Multidisciplinary Oncology Clinic [address] [place] [address] Sherin Perdue PA Erectile dysfunction after radical prostatectomy (Primary Dx); Malignant neoplasm of prostate ([facility]) 06/03/2025 Travel 05/27/2025 Travel from Last 3 Months Immunizations Immunization Administration [...] Pulse 61 07/02/2025 10:22 AM EDT Temperature 36.7 C (98 F) 06/03/2025 1:54 PM EDT Respiratory Rate 14 07/02/2025 10:22 AM EDT Oxygen Saturation 99% 06/03/2025 1:54 PM EDT Inhaled Oxygen Concentration - - Weight 98 kg (216 lb 0.8 oz) 07/02/2025 10:22 AM EDT Height 177.8 cm (5' 10 ) 06/03/2025 1:54 PM EDT Body Mass Index 31 06/03/2025 1:54 PM EDT Plan of Treatment Upcoming Encounters Date Type Department Care Team (Late st Contact Info) Description 08/27/2025 10:50 AM EST Office Visit [facility] Urology [address] [place] [address] Floridalma Espinal, COVER OPERATOR, DNP [address] [place] [address] 08/29/2025 1:45 PM EST Consult [facility] [address] [place] [address] Brendon Davidson MD [address] [place] [address] 09/02/2025 1:40 PM EST Office Visit [facility] Multidisciplinary Oncology Clinic [address] [place] [address] Sherni Perdue PA [address] [place] [address] Health Maintenance Due Date Last Done Comments [facility]-HIV Screening 1967 [facility]-Hepatitis C Screening 1967 [facility]-/Child/Adol SDOH Screenings 1967 [facility]- SDOH Screenings 1985 [facility]-Adult SDOH Screenings 1985 [facility]-Hepatitis B Vaccines (1 of 3 - 19+ 3-dose series) 1986 [facility]-Pneumococcal Vaccine: 50+ Years (1 of 2 - PCV) 1986 [facility]-Zoster Vaccines (1 of 2) 1986 CT Colonography 2012 Colonoscopy 2012 FIT-DNA 2012 FIT 2012 FOBT 2012 Sigmoidoscopy 2012 [facility]-Colorectal Cancer Screening 2012 [id number] Vaccine (3 - Moderna risk series) 02/26/2021 01/29/2021, 01/01/2021 [facility]-Depression Screening 07/02/2026 07/02/2025, 05/11 [facility]-DTaP,Tdap,and Td Vaccines (2 - Td or Tdap) 06/17/2035 06/17/2025 [facility]-Hepatitis A Vaccines Aged Out 08/03/2019, 09/09 No longer eligible based on patient's age to complete this topic [facility]-Influenza Vaccine Completed 06/17/2025 , 08/04/2023, 09/22/2022, Additional history exists [facility]-Obesity Intervention Completed 025, 07/27/2024, 07/17/2024, Additional history exists HPV Vaccines Aged Out No longer eligi [...] patient's age to complete this topic Insurance [employer] Advance Directives * Full Code (Latest Code Status on File) Date Activated Date Inactivated Comments 10/23/2024 1:32 PM 10/24/2024 5:21 PM Question Answer Comments Patient has decision-making capacity? Yes Care Teams Chummer Relationship Specialty Start Date End Date Kulwant Rojas MD [address] [place] [address] PCP - General 02/20/21 Jose Sprague MD 800 [facility] [address] [place] [address] Consulting Physician Radiation Oncology 07/31/24 Floridalma Espinal, COVER OPERATOR, DNP [address] [facility] [address] [place] [address] Nurse Practitioner Urology 07/02/25
--- OUTSIDE RECORDS SUMMARY | 2025-08-21 09:51 | XMS_ITS | Encounter Summary ---
Author Organization [facility] Address [address] [place] [address] Care Team Providers Care Interlocker Name Role Phone Kulwant Rojas MD Primary Care Provider [phone] Encounter Details Date Type Department Care Team (Late st Contact Info) Description 07/02/2025 Results Follow-Up [facility]HE[facility] [address] [address] John Cristina DO [address] [address] Social History Tobacco Use Types Packs/Day Years [...] Description 10/31/2025 1:00 PM EST Office Visit [facility] 330 [facility] 100 [place] [address] Luis A Matamoros, VINEET 330 [facility] 100 [place], [place] [address] documented as of this encounter Visit Diagnoses Not on filedocumented in this encounter Care Teams Interlocker Relationship Specialty Start Date End Date Kulwant Rojas MD 1210 [facility] [address] [facility] [address] [place] [address] PCP - General Adolescent Medicine 06/27/25 documented as of this encounter
--- OUTSIDE RECORDS SUMMARY | 2025-08-21 09:51 | XMS_ITS | Encounter Summary ---
Author Organization [facility] Address [address] [place] [address] Care Team Providers Care Periodontist Name Role Phone Kulwant Rojas MD Primary Care Provider + [phone] Jose Sprague MD Unavailable [phone] Floridalma Espinal APRN, [facility] Unavailable [phone] Reason for Referral * Consultation (Routine) - Authorized Specialty Diagnoses / Procedures Referred By Tahir juarez Referred To Contact Neurology Diagnoses White matter abnormality on MRI of brain Mariel Navas APRN 1210 [facility] 36 [place] [address] Phone: tel: fax: Referral ID Status Reason Start Date Expiration Date Visits Requested Visits Authorized [id number] Authorized Specialty Services Required 01/18/2027 1 1 Encounter Details Date Type Department Care Team (Late st Contact Info) Description 07/19/2025 Community Orders Community Practice [address] [place] [address] Mariel Navas APRN 1210 [facility] 36 [place] [address] White matter abnormality on MRI of brain (Primary Dx) Social History Tobacco Use Types Packs/Day Years Used Date Smoking Tobacco: Never Smokeless Tobacco: Current Snuff Alcohol Use Standard Drinks/Week Comments Not Currently [...] Description 08/27/2025 10:50 AM EST Office Visit [facility] Urology [address] [place] [address] Floridalma Espinal, HOUSING COORDINATOR, DNP [address] [place] [address] 08/29/2025 1:45 PM EST Consult [facility] [address] [place] [address] Brendon Davidson MD [address] [place] [address] 09/02/2025 1:40 PM EST Office Visit [facility] Multidisciplinary Oncology Clinic [address] [place] [address] Sherin Perdue PA [address] [place] [address] Scheduled Referrals Name Type Priority Associated Diagnoses Orde r Schedule Ambulatory referral to Neurology Outpatient Referral Routine White matter abnormality on MRI of brain Expected: 07/19/2025 (Approximate), Expires: 01/20/2027 documented as of this encounter Visit Diagnoses Diagnosis White matter abnormality on MRI of brain- Primary documented in this encounter Additional Health Concerns Assessment Noted Time PHQ-9 Depression Total Score: 0 06/03/20 1:56 PM EDT A fall risk assessment has been complete d for the patient 07/02/2025 10:10 AM EDT A Body Mass Index follow-up plan has been documented for the patient 07/02/2025 11:12 AM EDT documented as of this encounter Care Teams Periodontist Relationship Specialty Start Date End Date Kulwant Rojas MD [address] [place] [address] PCP - General 02/20/21 Jose Sprague MD [address] [place] [address] Consulting Physician Radiation Oncology 07/31/24 Floridalma Espinal, HOUSING COORDINATOR, DNP [address] [place] [address] Nurse Practitioner Urology 07/02/25 documented as of this encounter
--- OUTSIDE RECORDS SUMMARY | 2025-08-21 09:51 | XMS_ITS | Encounter Summary ---
Author Organization Healthcare Address [address] [place] [address] Care Team Providers Care Carpenter Refrigerator Name Role Phone Kulwant Rojas MD Primary Care Provider + [phone] Jose Sprague MD Unavailable [phone] Floridalma Espinal APRN, DNP Unavailable [phone] Encounter Details Date Type Department Care Team (Latest Contact Info) Description 07/02/2025 Travel Social History Tobacco Use Types Packs/Day [...] Camilla Ramirez documented as of this encounter Plan of Treatment Upcoming Encounters Date Type Department Care Team (Late st Contact Info) Description 08/27/2025 10:50 AM EST Office Visit [facility] [address] [place] [address] Floridalma Espinal, HIGH RISK OB, DNP [address] [place] [address] 08/29/2025 1:45 PM EST Consult [facility] [address] [place] [address] Brendon Davidson MD [address] [place] [address] 09/02/2025 1:40 PM EST Office Visit [facility] Multidisciplinary Oncology Clinic [address] [place] [address] Sherin Perdue PA [address] [place] [address] documented as of this encounter Visit Diagnoses [...] documented as of this encounter Care Teams Carpenter Refrigerator Relationship Specialty Start Date End Date Kulwant Rojas MD [address] [place] [address] PCP - General 02/20/21 Jose Sprague MD [address] [facility] [address] [place] [address] Consulting Physician Radiation Oncology 07/31/24 Floridalma Espinal, VINEET, DNP [address] [place] [address] Nurse Practitioner Urology 07/02/25 documented as of this encounter
--- OUTSIDE RECORDS SUMMARY | 2025-08-21 09:51 | XMS_ITS | Encounter Summary ---
Author Organization [facility] Address [address] [place] [address] Care Team Providers Care Manager Integrity Name Role Phone Kulwant Rojas MD Primary Care Provider + [phone] Jose Sprague MD Unavailable [phone] Floridalma Espinal APRN, [facility] Unavailable [phone] Reason for Referral * Consultation (Routine) - Closed Specialty Diagnoses / Procedures Referred By Contac t Referred To Contact Urology Diagnoses Elevated PSA Kulwant Rojas MD [address] [facility] [address] [place] [address] Phone: tel: fax: Kulwant Hairston MD [address] [facility] [address] [place] [address] Phone: tel: fax: Referral ID Status Reason Start Date Expiration Date V isits Requested Visits Authorized [id number] Closed Specialty Services Required 02/29/2024 08/30/2025 1 1 Encounter Details Date Type Department Care Team (Late st Contact Info) Description 02/29/2024 [facility] [address] [place] [address] Kulwant Rojas MD [address] [facility] [address] [place] [address] Elevated PSA (Primary Dx) Social History Tobacco [...] Description 08/27/2025 10:50 AM EST Office Visit [facility] [address] [place] [address] Floridalma Espinal, CUSTOMER SERVICE TECHNICIAN, DNP [address] [place] [address] 08/29/2025 1:45 PM EST Consult [facility] [address] [place] [address] Brendon Davidson MD [address] [place] [address] 09/02/2025 1:40 PM EST Office Visit [facility] Multidisciplinary Oncology Clinic [address] [place] [address] Sherin Perdue PA [address] [place] [address] Scheduled Referrals Name Type Priority Associated Diagnoses Order Schedule Ambulatory referral to Urology Outpatient Referral Routine Elevated PSA Ordered: 02/29/2024 documented as of this encounter Visit Diagnoses Diagnosis Elevated PSA- Primary Elevated prostate specific antigen (PSA) documented in this encounter Care Teams Manager Integrity Relationship Specialty Start Date End Date Kulwant Rojas MD [address] [place] [address] PCP - General 02/20/21 Jose Sprague MD 800 [facility] [address] [place] [address] Consulting Physician Radiation Oncology 07/31/24 Floridalma Espinal APRN, DNP [address] [facility] [address] [place] [address] Nurse Practitioner Urology 07/02/25 documented as of this encounter
[2025-08-21] MEDS: ALBUTEROL 0.083% 2.5 MG/3 ML NEB IH (11:33)
== END 2025-08-21 23:59 | disposition home or self-care (01) ==
LOC: RT 09:45
PROVIDERS: PCP Internal Medicine Adolescent Medicine; Visit Provider Internal Medicine Pulmonary Disease
DX: J44.9 Chronic obstructive pulmonary disease, unspecified (principal); R94.2 Abnormal results of pulmonary function studies
CPT/HCPCS: 94060; 94618; 94726; 94729

== ENCOUNTER 2025-08-31 09:15 | Outpatient (CLI) | payer BC, SELFPAY ==
--- OUTSIDE RECORDS SUMMARY | 2024-06-05 11:30 | XMS_ITS ---
Author Organization [facility] Address [address] [place], [place] [address] Care Team Providers Care Topper Press Operator Automatic Name Role Phone Kulwant Rojas Primary Care Provider [phone] Mariel Cruz [phone] REASON FOR VISIT 2 wk FU Encounters Encounter Location Date Provider Diagnosis [facility] [address] [place], [place] [address] 06/05/2024 Mariel Cruz Plan Of Treatment No Information Progress Notes * Mario VELASCO MDOB: 7 (60 yo M)Acc No.[id number]:06/05/2024 Progress Notes Patient: Mario WOLFE Provider: Vale Cruz APRN :1965 A ge:58 Y S ex:Male Date:06/05/2024 Address[address] [place], [id number] Pcp:Kulwant Rojas Subjective: * Chief Complaints: * 1 . 2 wk FU. * Medical History: Objective: * Vitals: Assessment: Plan: * Treatment: * * Electronic signature of Aneesh Cruz APRN on 08/31/2025 at 09:20 AM EST Sign off status: Pending * Provider: Vale Cruz APRN Date: 0 06/05/2024 Generated for López lo/Anders/eTransmitting on: 10/31/2024 09:20 AM EST
--- OUTSIDE RECORDS SUMMARY | 2025-01-12 16:30 | XMS_ITS ---
Author Organization [facility] Address [address] [place] [address] Care Team Providers Care Pest Control Service Technician Name Role Phone Kulwant Rojas Primary Care Provider [phone] Migration, Provider Unavailable Un[facility] Con[facility] Encounter Medications Medication SIG (Take, Route, Frequency, Duration) Notes Start Date End Date Status Valsartan 320 MG 1 tab(s) orally once a day; Duration: 90 days Active Arthritis Pain Reliever 1 % 2 gm applied topically 4 times a day to base of thumb; Duration: 10 days 05/21/2023 Active Voltaren Arthritis Pain 1 % as directed applied topically 4 times a day; Duration: 30 days 05/24/2023 Active Zepbound 5 MG/0.5ML INJECT 1 SYRINGE SUBCUTANEOUSLY ONCE A WEEK FOR 28 DAYS; Duration: 28 Active Testosterone Cypionate 200 MG/ML 200mg intramuscularly every 2 weeks; Duration: 30 days 11/08/2023 Active SYRINGE 3CC 21G 1.5 IM Q 2 WKS; Duration: 90 DAYS *Please review for potential replacement for e-prescription and drug interaction check* 05/21/2016 Active Flonase Allergy Relief 50 MCG/ACT 2 spray(s) intranasally once a day; Duration: 30 day(s) prn 01/28/2021 Active Finasteride 5 MG 1 tab(s) orally once a day; Duration: 90 days 03/09/2022 Active Tadalafil 5 MG 1 tab(s) orally once a day Active TADALAFIL (EQV-CIALIS) 20 MG TAKE 1 TABLET BY MOUTH ONCE DAILY FOR 10 DAYS; Duration: 10 *Please review for potential replacement for e-prescription and drug interaction check* Active Verapamil HCl ER 180 MG 1 cap(s) orally once a day; Duration: 90 days Active Encounters Encounter Location Date Provider [facility] [address] [place] [address] 01/12/2025 Provider Migration Hypertension, essential I10 Assessments Encounter Date Diagnosis (ICD Code) Assessment Notes Treatment Notes Treatment Clinical Notes Section Notes 01/12/2025 Hypertension, essential (ICD-10 - I10) Plan Of Treatment Medication Medication Name Sig Start Date Stop Date Notes Valsartan 320 MG 1 tab(s) orally once a day; Duration: 90 days Zepbound 5 MG/0.5ML INJECT 1 SYRINGE SUBCUTANEOUSLY ONCE A WEEK FOR 28 DAYS; Duration: 28 TADALAFIL (EQV-CIALIS) 20 MG TAKE 1 TABLET BY MOUTH ONCE DAILY FOR 10 DAYS; Duration: 10 *Please review for potential replacement for e-prescription and drug interaction check* Verapamil HCl ER 180 MG 1 cap(s) orally once a day; Duration: 90 days Progress Notes * Mario VELASCO MDOB: 7 (60 yo M)Acc No.[id number]:01/12/2025 Patient: Mario WOLFE Provider: Kaleigh Blanco :1965 A ge:59 Y S ex:Male Date:01/12/2025 Address:[address] [place], [id number] Pcp:Kulwant Rojas Subjective: * Chief Complaints: * 1 . [facility] Conversion Encounter. * Medical History: * Medications: T aking SYRINGE 3CC 21G 1.5 IM Q 2 WKS , Notes to Pharmacist: *Please review for potential replacement for e-prescription and drug interaction check*, Taking Flonase Allergy Relief 50 MCG/ACT Suspension 2 spray(s) intranasally once a day , Notes to Pharmacist: prn, Taking Finasteride 5 MG Tablet 1 tab(s) orally once a day , Taking Tadalafil 5 MG Tablet 1 tab(s) orally once a day , Taking Arthritis Pain Reliever 1 % Gel 2 gm applied topically 4 times a day to base of thumb , Taking Voltaren Arthritis Pain 1 % Gel as directed applied topically 4 times a day , Taking Testosterone Cypionate 200 MG/ML Solution 200mg intramuscularly every 2 weeks Objective: * Vitals: Assessment: * Assessment: 1. H ypertension, essential - I10 Plan: * Treatment: 2. O thers Start Zepbound Solution, 5 MG/0.5ML, INJECT 1 SYRINGE SUBCUTANEOUSLY ONCE A WEEK FOR 28 DAYS, 28, 4 Milliliter, Refills 2; S tart TADALAFIL (EQV-CIALIS) TABLET, 20 MG, TAKE 1 TABLET BY MOUTH ONCE DAILY FOR 10 DAYS, 10, 10 TABLET, Refills 0, Notes to Pharmacist: *Please review for potential replacement for e-prescription and drug interaction check*; R efill Verapamil HCl ER Capsule Extended Release 24 Hour, 180 MG, 1 cap(s), orally, once a day, 90 days, 90 Capsule, Refills 1. * * Electronic signature of Prov ider Migration on 08/31/2025 at 09:18 AM EST Sign off status: Pending * Provider: Kaleigh jansen Migration Date: 0 01/12/2025 Generated for López lo/Anders/Theresa on: 1 10/31/2024 09:18 AM EST
--- OUTSIDE RECORDS SUMMARY | 2025-07-02 09:10 | XMS_ITS | Encounter Summary ---
Author Organization [facility] Address [address] [place] [address] Care Team Providers Care [address] Railway Line Installer Name Role Phone Kulwant Rojas MD Primary Care Provider + [phone] Jose Sprague MD Unavailable [phone] Floridalma Espinal APRN, EDWIGE Unavailable [phone] Reason for Visit * Reason Comments Follow-up Encounter Details Date Type Department Care Team (Latest Contact Info) Description 07/02/2025 10:10 AM EDT Procedure Visit [facility] [address] [place] [address] Floridalma Espinal, VINEET, DNP [address] [place] [address] Erectile dysfunction after radical prostatectomy [...] Notes * Progress Notes - Floridalma Espinal, COMMUNITY DIETITIAN, DNP - 07/02/2025 10:10 AM EDT [facility] Visit CC: erectile dysfunction HPI: [...] Trimix injection trial and teaching. [facility]. Physical Exam: Visit [...] Care Team (Late st Contact Info) Description 09/02/2025 1:40 PM EST Office Visit [facility] Multidisciplinary Oncology Clinic [address] [place] [address] Sherin Perdue PA [address] [place] [address] 08/28/2026 11:10 AM EST Office Visit [facility] [address] [place] [address] Floridalma Espinal APRN, DNP [address] [place] [address] documented as of this encounter Visit Diagnoses Diagnosis Erectile dysfunction after radical prostatectomy- Primary documented in this encounter Administered Medications Inactive Administered Medications - up to 3 most recent administrations Medication Order MAR Action Action Date Dose Rate Site hiibnulmben-bbpoxohcciub-obdoxtkc ne (Trimix) 20-1-30 mcg-mg-mg/mL intracavernosal injection 0.05 [...] documented as of this encounter Care Teams Street Railway Line Installer Relationship Specialty Start Date End Date Kulwant Rojas MD [address] [place] [address] PCP - General 02/20/21 Jose Sprague MD [address] [facility] [address] [place] [address] Consulting Physician Radiation Oncology 07/31/24 Floridalma Espinal, VINEET, DNP [address] [place] [address] Nurse Practitioner Urology 07/02/25 documented as of this encounter
--- OUTSIDE RECORDS SUMMARY | 2025-07-05 06:45 | XMS_ITS ---
Author Organization [facility] PE D MATIAS Address [address] [place] [address] Care Team Providers Care Contour Path Tape Mill Operator Name Role Phone Kulwant Rojas Primary Care Provider Mariel Cruz Unavailable [phone] Allergies No Known Allergies Results Component Value Reference Range Notes MRI : Head Reviewed date:07/19/2025 03:28:14 PM Interpretation: Performing Lab: Notes/Report: Reason For Referral Reason MRI head without con trast Diagnosis 1 Frequent headaches ( R51.9) Referral Organization [facility] KIRA VELASQUEZ Referring Provider First Name Mariel Referring Provider Last Name Nancy Referring Provider Speciality Family Pra ctice Referred Organization [facility] Referred Address [address] [facility] [address] [facility], [place], [place],[address],[place] Referred Provider Specialty Diagnostic R adiology General Notes Gabby Pedraza 2024 04:51:34 PM >approved and sent to [facility] to schedule Referral Priority Routine REASON FOR VISIT f/u hand, tender to touch head, discuss C-Pap, never heard about colonscopy Medications Medication SIG (Take, Route, Frequency, Duration) Notes Start Date End Date Status Flonase Allergy Relief 50 MCG/ACT 2 spray(s) intranasally once a day; Duration: 30 day(s) prn 01/28/2021 Active Voltaren Arthritis Pain 1 % as directed applied topically 4 times a day; Duration: 30 days 05/24/2023 Active Arthritis Pain Reliever 1 % 2 gm applied topically 4 times a day to base of thumb; Duration: 10 days 05/21/2023 Active Tadalafil 5 MG 1 tab(s) orally once a day Active Finasteride 5 MG 1 tab(s) orally once a day; Duration: 90 days 03/09/2022 Active SYRINGE 3CC 21G 1.5 IM Q 2 WKS; Duration: 90 DAYS *Please review for potential replacement for e-prescription and drug interaction check* 05/21/2016 Active Colchicine 0.6 MG take 2 tabs on the first day and one tab for the next 7 days Orally daily; Duration: 8 days 06/18/2025 Active Zepbound 7.5 MG/0.5ML 0.5 mL Subcutaneous once a week; Duration: 28 days Active CeleBREX 200 MG 1 capsule as needed Orally Once a day; Duration: 30 days 07/05/2025 Active Valsartan 320 MG Take 1 tablet by rebecca th once daily for 90 days; Duration: 90 Active Verapamil HCl ER 180 MG 1 cap(s) orally once a day; Duration: 90 days Active TADALAFIL (EQV-CIALIS) 20 MG TAKE 1 TABLET BY MOUTH ONCE DAILY FOR 10 DAYS; Duration: 10 *Please review for potential replacement for e-prescription and drug interaction check* Active Testosterone Cypionate 200 MG/ML 200mg intramuscularly every 2 weeks; Duration: 30 days 11/08/2023 Active Problems Problem Type SNOMED Code ICD Code Onset Dates Problem Status W/U Status Risk Notes Problem Obstructive sleep apnea syndrome (77411530) CHET on CPAP (G47.33) Active confirmed Vital Signs Temperature 98.1 degrees Fahrenheit 07/05/20 25 Blood pressure systolic 125 mm Hg 07/05/20 25 Blood pressure diastolic 80 mm Hg 025 Heart Rate 68 /min 07/05/2025 Height 5 ft 9 in in 07/05/2025 Weight 215 lbs 07/05/2025 BMI 31.75 kg/m2 07/05/2025 Encounters Encounter Location Date Provider Diagnosis [address] [address] 07/05/2025 Mariel Cruz Arthralgia of multiple joints M25.50 ; CHET on CPAP G47.33 ; Colon cancer screening Z12.11 ; Frequent headaches R51.9 and Scalp tenderness R51.9 Assessments Encounter Date Diagnosis (ICD Code) Assessment Notes Treatment Notes Treatment Clinical Notes Section Notes 07/05/2025 Arthralgia of multiple joints (ICD-10 - M25.50) Trial of celebrex MOA and SE profile discussed Supportive care and referral to [facility] for injection discussed 07/05/2025 CHET on CPAP (ICD-10 - G47.33) Okay to increase CPAP settings back to previous 07/05/2025 Colon cancer screening (ICD-10 - Z12.11) Office to call Dr. Sutton to check on referral 07/05/2025 Frequent headaches (ICD-10 - R51.9) Will obtain MRI to r/o underlying pathlogy 07/05/2025 Scalp tenderness (ICD-10 - R51.9) Plan Of Treatment Medication Medication Name Sig Start Date Stop Date Notes CeleBREX 200 MG 1 capsule as needed Orally Once a day; Duration: 30 days 07/05/2025 Treatment Notes Assessment Notes Arthralgia of multiple joints Trial of celebrex MOA and SE profile discussed Supportive care and referral to [facility] for injection discussed CHET on CPAP Okay to increase CPA P settings back to previous Colon cancer screening Office to call Dr Stan Sutton to check on referral Frequent headaches Will obtain MRI to r /o underlying pathlogy Referrals Referral Date Details 07/05/2025 07/05/2025, MRI head without contrast, [address] [place] [facility] [address] [facility] [place], [address], Next Appt Details Follow Up: 4 Weeks,prn, Reas on: Progress Notes * Mario VELASCO MDOB: 7 (59 yo M)Acc No.[id number]:07/05/2025 Progress Notes Patient: Ignacio SARARENETTAMario Provider: Vale Cruz APRN :1965 A ge:59 Y S ex:Male Date:07/05/2025 Address:[address] [place] [address] [address] [facility] Pcp:Kulwant Rojas Subjective: * Chief Complaints: * 1 . F/u hand. 2. Tender to touch head. 3. discuss C-Pap. 4. Never heard about colonscopy. * HPI: g en: 59 y/o male presents with multiple concerns-Hand pain-bilateral, most significant is left 3rd finger, hurts worse in the morning, feels stiff for the first few hours. Swelling improved with colchicine but not pain. Seen by rheumatology recently- OA CPAP- reports when replaced a couple of years ago settings changed from 6 to 4. Would like to change back, feels like he is not getting enough air Colonoscopy- referral sent, has not heard from Dr. Sutton office Left posterior head tenderness and frequent left sided headaches. No dizziness. At times neck feels sore. Headache comes and goes, but scalp is always tender. Mom had brain cancer, which is contributing to his concern. * ROS: R ESPIRATORY: no C hest congestion. n o C ough. C ARDIOLOGY: Reviewed, No Symptoms Reported: Y es. C ONSTITUTIONAL: no L oss of appetite. n o F ever. G ASTROENTEROLOGY: Reviewed, No Symptoms Reported: Y es. H EMATOLOGY/LYMPH: no S wollen glands. n o F atigue. n o E asy bruising. M USCULOSKELETAL: Joint stiffness y es. J oint pain y es. n o?Joint swelling. N EUROLOGY: Headache y es. n o D izziness. n o G ait abnormality. 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 * Surgical History: h ernia repair , oral surgery 04/07/2016-, L3/L4 lumbar microdiscectomy 08/2020, Renal stent 10/2020. * Hospitalization/Major Diagno stic Procedure: D enies Past Hospitalization. * Family History: F ather: . M other: , heart disease, and arthritis, lung cancer with mets.?Paternal Grand Father: . P aternal Grand Mother: . M aternal Grand Father: . M aternal Grand Mother: . P aternal uncle: alive. M aternal uncle: alive. M aternal aunt: alive. S iblings: alive, brother-black lung, sister- heart problems. C hildren: alive. 2 brother(s) , 1 sister(s) . 1 son(s) , 1 daughter(s) - healthy. . * Social History: S moking A re you a:: nonsmoker. R ecreational drug use: no. Exercise: yes, occasionally. Home smoke detector use: yes. Caffeine: yes, frequency:maybe one soda daily. Living Will: Yes. Alcohol: socially. Sexually active: yes. Travel outside [place]: yes, [place], [place], [place], [place]. Occupation: [employer]. * Medications: T aking SYRINGE 3CC 21G [...] MG/ML Solution 200mg intramuscularly every 2 weeks , Taking TADALAFIL (EQV-CIALIS) 20 MG TABLET TAKE 1 TABLET BY MOUTH ONCE DAILY FOR 10 DAYS , Notes to Pharmacist: *Please review for potential replacement for e-prescription and drug interaction check*, Taking Verapamil HCl ER 180 MG Capsule Extended Release 24 Hour 1 cap(s) orally once a day , Taking Valsartan 320 MG Tablet Take 1 tablet by mouth once daily for 90 days , Taking Zepbound 7.5 MG/0.5ML Solution 0.5 mL Subcutaneous once a week , Taking Colchicine 0.6 MG Tablet take 2 tabs on the first day and one tab for the next 7 days Orally daily , Medication List reviewed and reconciled with the patient * Allergies: N .K.D.A. Objective: * Vitals: N urse: dw, Pain: 4, Temp: 98.1, RR: 18, HR: 68, BP: 125/80, Ht: 5 ft 9 in, Wt: 215, BMI:31.75. * Examination: G eneral Examination: General P leasant and Cooperative, NAD on RA,. Chest: n ormal shape and expansion. Heart: R egular Rate and Rhythm, no murmur, rubs or gallops. HEENT: l eft occipital scalp tendernes, mild cervical paraspinal muscle tenderness. Lungs: L CTAB, No wheezes, crackles or rhonchi, Good air movement,. Abdomen: S oft, NTND, BSNA, No organomegaly or peritoneal signs.. Neurologic Exam: n ormal sensation, strength, tone and reflexes, Alert and oriented x 3 no focal signs, . Skin: w ithout acute rashes. Peripheral pulses: n ormal (2+) bilaterally. neck s upple,, no thyromegaly,, no lymphadenopathy,. Psych N ormal Mood/Affect. Assessment: * Assessment: 1. A rthralgia of multiple joints - M25.50 (Primary) 2 . O SA on CPAP - G47.33 3 . C olon cancer screening - Z12.11 4 . F requent headaches - R51.9 5 . S calp tenderness - R51.9 Plan: * Treatment: 2. O SA on CPAP Notes: Okay to increase CPAP settings back to previous 3. C olon cancer screening Notes: Office to call Dr. Sutton to check on referral 4. F requent headaches I maging: MRI : Head * Notes: Will obtain MRI to r/o underlying pathlogy? Referral To: ?Reason:MRI headwithout contrast 5.?Scalp tenderness?Imaging: MRI : Head* WITHOUT [id number] ex p 08/03/25 [facility]/19/2025 12:06:43 PM EDT >Mariel Cruz 07/19/2025 01:01:56 PM EDT > MRI shows what appears to be chronic changes, recommend neuro referral for further recommendationsMu lopez R 07/19/2025 03:14:36 PM EDT > pt notified . Please refer to KrissyMu lopez 07/19/2025 03:15:39 PM EDT > [facility] reviewed by Gabby Pedraza on 07/19/2025 at 15:28 PM EDT * * Follow Up: 4 Weeks,prn * * Sign off status: Completed true * Provider: Vale Cruz APRN Date: 0 07/05/2025 Generated for Printi ng/Faxing/eTransmitting on: 1 10/31/2024 09:19 AM EST History and Physical Notes * HPI (History of Present Illness) Category Sub-Category Detail Notes Category Not es gen 59 y/o male presents with multiple concerns-Hand pain-bilateral, most significant is left 3rd finger, hurts worse in the morning, feels stiff for the first few hours. Swelling improved with colchicine but not pain. Seen by rheumatology recently- OA CPAP- reports when replaced a couple of years ago settings changed from 6 to 4. Would like to change back, feels like he is not getting enough air Colonoscopy- referral sent, has not heard from Dr. Sutton office Left posterior head tenderness and frequent left sided headaches. No dizziness. At times neck feels sore. Headache comes and goes, but scalp is always tender. Mom had brain cancer, which is contributing to his concern Examination Category Sub-Category Detail Notes Category Not es General Examination HEENT: left occipit al scalp tendernes, mild cervical paraspinal muscle tenderness Heart: Regular Rate and Rhy thm, no murmur, rubs or gallops Lungs: LCTAB, No wheezes, c rackles or rhonchi, Good air movement, Abdomen: Soft, NTND, BSNA, No organomegaly or peritoneal signs. Skin: without acute rashes Neurologic Exam: normal sensation, st rength, tone and reflexes, Alert and oriented x 3 no focal signs, Peripheral pulses: normal (2+) bilatera lly Chest: normal shape and exp ansion neck supple,, no thyromeg isabella,, no lymphadenopathy, General Pleasant and Coopera tive, NAD on RA, Psych Normal Mood/Affect Consultation Request Notes Referral Date Referring Provider Referred Provider Not es 07/05/2025 Mariel Cruz , MRI head witho ut contrast
--- OUTSIDE RECORDS SUMMARY | 2025-08-27 10:50 | XMS_ITS | Encounter Summary ---
Author Organization Healthcare Address [address] [place] [address] Care Team Providers Care Landmen Name Role Phone Kulwant Rojas MD Primary Care Provider + [phone] Jose Sprague MD Unavailable [phone] Floridalma Espinal APRN, EDWIGE Unavailable [phone] Encounter Details Date Type Department Care Team (Latest Contact Info) Description 08/27/2025 10:50 AM EST [facility] [address] [place] [address] Floridalma Espinal, VINEET, DNP [address] [place] [address] Erectile dysfunction following radical prostatectomy (Primary Dx) Social History Tobacco [...] * Progress Notes - Floridalma Espinal APRN, DNP - 08/27/2025 10:50 AM EST [facility] Urology Telemedicine Visit CC: post prostatectomy erectile dysfunction HPI: Mario Lozano is a 60 y.o. male with history of prostate cancer s/p RALP (10/23/24) with pathology [place] 3+4=7 (GrGp2), with positive margin at left bladder neck and left anterior gland. 8/8 nodes negative. PSA has been undetectable. He has erectile dysfunction that has been partially responsive to oral PDE5i. He underwent Trimix trial on 07/02/25 where he had excellent response to 0.05 mLdose. He was instructed to try at home using 0.05 - 0.10 ml (5-10 unit) dose and increase by 0.05 mL until suitable response with maximum dose 0.50 mL. Mr. Lozano presents today in follow up via Telecare. He has been able to try Trimix at home. He hasused up to a 0.12 mL dose with satisfactory response. No prolonged erections with use. No bruising or bleeding. No difficulty with injecting. No pain with erections. He is pleased with this therapy and wishes to continue using this. Assessment: 60 y.o. male with post prostatectomy erectile dysfunction that has been responsive to Trimix. He'd like to continue using this. Will send RF to [facility]. Follow up in 1 year, sooner if needed. Plan: - Trimix refills sent to [facility]. - Follow up in 1 year. Telehealth Statement Patient Verification Patient identity has been confirmed using name and date of ? Yes Authorizations and Agreements/Telemedicine Consent sent and consent confirmed? Yes Patient Location: Home/Other Patient confirms they are physically located in [place]? Yes If the patient is not physically located in [place], the provider has confirmed with [facility] thatthe provider is authorized to provide services in patient's stated location? N/A Provider Location: [facility] facility Audio and video or audio only? Audio only Total visit time: 5 minutes documented in this encounter Plan of Treatment Upcoming Encounters Date Type Department Care Team (Late st Contact Info) Description 09/02/2025 1:40 PM EST Office Visit [facility] [address] [place] [address] Sherin Perdue PA [address] [place] [address] 08/28/2026 11:10 AM EST [facility] [address] [place] [address] Floridalma Espinal APRN, EDWIGE [address] [place] [address] documented as of this encounter Visit Diagnoses Diagnosis Erectile dysfunction following radical prostatectomy- Primary documented in this encounter Additional Health Concerns Assessment Noted Time PHQ-9 Depression Total Score: 0 06/03/20 1:56 PM EDT A fall risk assessment has been complete d for the patient 08/27/2025 10:26 AM EST A Body Mass Index follow-up plan has been documented for the patient 08/27/2025 11:34 AM EST documented as of this encounter Care Teams Landmen Relationship Specialty Start Date End Date Kulwant Rojas MD [address] [facility] [address] [place] [address] PCP - General 02/20/21 Jose Sprague MD [address] [facility] [address] [place] [address] Consulting Physician Radiation Oncology 07/31/24 Floridalma Espinal APRN, EDWIGE [address] [place] [address] Nurse Practitioner Urology 07/02/25 documented as of this encounter
--- OUTSIDE RECORDS SUMMARY | 2025-08-29 13:45 | XMS_ITS | Encounter Summary ---
Author Organization Healthcare Address [address] [place] [address] Care Team Providers Care Skin Peeling Machine Operator Name Role Phone Kulwant Rojas MD Primary Care Provider + [phone] Jose Sprague MD Unavailable [phone] Floridalma Espinal INBOUND CALL CENTER AGENT, [facility] Unavailable [phone] Reason for Visit * Consultation (Routine) - Closed Specialty Diagnoses / Procedures Referred By Tahir juarez Referred To Contact Neurology Diagnoses White matter abnormality on MRI of brain Mariel Navas S, INBOUND CALL CENTER AGENT [address] [place] [address] Phone: tel: fax: Referral ID Status Reason Start Date Expiration Date V isits Requested Visits Authorized [id number] Closed Specialty Services Required 07/19/2025 01/18/2027 1 1 Encounter Details Date Type Department Care Team (Late st Contact Info) Description 08/29/2025 1:45 PM EST Consult [facility] [address] [place] [address] Brendon Davidson MD [address] [place] [address] Abnormal finding on MRI of brain (Primary Dx) Social History Tobacco Use Types Packs/Day Years Used Date Smoking Tobacco: Never Passive Smoke Exposure: Never Smokeless Tobacco: Current Snuff Tobacco Cessation:Ready to Q uit: Not Asked; Counseling Given: Not Answered Alcohol Use Standard Drinks/Week Comments Never 0 (1 standard drink = 0.6 oz [...] Sign Reading Time Taken Comments Blood Pressure 152/82 08/29/2025 1:53 PM EST Pulse 63 08/29/2025 1:53 PM EST Temperature - - Respiratory Rate - - Oxygen Saturation 97% 08/29/2025 1:53 PM EST Inhaled Oxygen Concentration - - Weight 97.2 kg (214 lb 4.6 oz) 08/29/2025 1:53 P M EST Height 177.8 cm (5' 10 ) 08/29/2025 1:53 PM EST Body Mass Index 30.75 08/29/2025 1:53 PM EST documented in this encounter Miscellaneous Notes * Progress Notes - Brendon Davidson MD - 08/29/2025 1:45 PM EST Consult Date: 08/29/25 Referring Physician: This patient was seen In consult at the request of Yosef Floyd APRN. Reason for Consult : Possible MS. History of Present Illness The patient is a 60-year-old male who presents for evaluation of suspected multiple sclerosis. Approximately 2 months ago, he underwent an MRI due to palpable nodules on both sides of his occipital region, with the left-sided nodule being larger and more sensitive to touch. This nodule was also associated with headaches. Given his family history of brain cancer in his mother and mini strokesand white matter disease in his brother, his nurse practitioner, Rosalinda Navas, recommended further imaging studies. The recent MRI revealed changes in his white matter compared to a previous scan conducted a few years ago at [facility]. He reports no current symptoms. He has a h/o prostate cancer. FAMILY HISTORY - Mother: Metastatic cancer involving the brain and lungs - Brother: Mini strokes and white matter disease History of Present Illness PERSONAL REVIEW OF PRIOR DATA (MRIs, LABS) NO MRI available for review Past Medical History[1] Surgical History[2] MEDICATIONS FOR CURRENT ENCOUNTER: Encounter Medications[3] Allergies Allergies[4] Social History Social History[5] Family History Family History[6] REVIEW OF SYSTEMS: A ten system review of constitutional, cardiovascular, respiratory, musculoskeletal, endocrine, skin, SHEENT, genitourinary, psychiatric and neurologic systems was obtained and is unremarkable except as noted in the HPI. Visit Vitals BP (!) 152/82 (BP Location: Left arm, Patient Position: Sitting, BP Cuff Size: Adult) Pulse 63 Ht 1.778 m (5' 10 ) Wt 97.2 kg (214 lb 4.6 oz) SpO2 97% BMI 30.75 kg/m?? Smoking Status Never BSA 2.19 m?? General appearance: well developed, in no distress Cardiovascular: Heart regular rate and rhythm. Carotids no bruits. Neurological Examination: The patient is alert, attentive, and oriented to person, place, and time. Speech is fluent. Cranial nerve examination reveals no cranial neuropathies. Motor examination reveals normal strength, tone/bulk are N. DTRs - no pathological reflexes were present Toes - are mute Hermes's - could not be elicited. Cerebellar exam - No findings of note were noted Sensory exam - was deferred Gait - N IMP Normal neurological exam; no MRI available for review. Will get the MRI and get back to him VIJAY. Time: 45 min No F/U needed. [1] Past Medical History: Diagnosis Date Adverse effect of anesthesia 06/29/2024 The medication in my IV felt like my arm was on fire and it was the worst time I have ever been putunder. High blood pressure Pneumonia 03/07/24 Prostate cancer ([facility]) 06/29/2024 Sleep apnea C-pap [2] Past Surgical History: Procedure Laterality Date BACK SURGERY 2021 BRONCHOSCOPY 2011 COLONOSCOPY 2019 HERNIA REPAIR 1984 OTHER SURGICAL HISTORY N/A Rigid Bronchoscopy With Transbronchial Lung Biopsy from [facility] OTHER SURGICAL HISTORY 06/29/2024 ([facility]) MRI FUSION BIOPSY AND CYSTOSCOPY PROSTATE SURGERY Oct 2024 VASECTOMY 1996 [3] Outpatient Encounter Medications as of 08/29/2025 Medication Sig Dispense Refill albuterol 108 (90 Base) MCG/ACT inhaler Inhale 2 puffs as needed in the morning and 2 puffs as needed at noon and 2 puffs as needed in the evening and 2 puffs as needed before bedtime for shortness of breath or wheezing. evdpewhknjr-jypftmvsyagq-qtnpeqcbnl (Trimix) 20-1-30 mcg-mg-mg/mL intracavernosal injection Inject 0.10 mL (10 units) to 0.50 mL (50 units) as directed. 2 mL 11 celecoxib (CeleBREX) 200 MG capsule Take 1 capsule by mouth daily. NON FORMULARY SYRINGE WITH NEEDLE 3 ML 22 X 1 1/2 valsartan (Diovan) 320 MG tablet Take 1 tablet (320 mg) by mouth in the morning. Zepbound 7.5 MG/0.5ML solution auto-injector INJECT 1 AUTO-INJECTOR SUBCUTANEOUSLY ONCE A WEEK sildenafil (Viagra) 100 MG tablet Take 1 tablet by mouth daily as needed for erectile dysfunction. (Patient not taking: Reported on 08/27/2025) 15 tablet 3 tadalafil (Adcirca) 20 MG tablet Take 1 tablet (20 mg) by mouth daily as needed for erectile dysfunction. (Patient not taking: Reported on 08/27/2025) tadalafil (Cialis) 20 MG tablet Take 1 tablet (20 mg) by mouth 1 (one) time each day if needed for erectile dysfunction. (Patient not taking: Reported on 08/27/2025) 30 tablet 3 verapamil ER (Veralan PM) 180 MG 24 hr capsule Take 1 capsule (180 mg) by mouth nightly. Do not crush or chew. (Patient not taking: Reported on 08/27/2025) [DISCONTINUED] oimvolqgvdv-ckldhbikrxvv-ewtfwsuyya (Trimix) 20-1-30 mcg-mg-mg/mL intracavernosal injection APPOINTMENT #1 TRIAL. Use as directed. 1 mL 0 No facility-administered encounter medications on file as of 08/29/2025. [4] No Known Allergies [5] Social History Tobacco Use Smoking status: Never Passive exposure: Never Smokeless tobacco: Current Types: Snuff Vaping Use Vaping status: Never Used Substance Use Topics Alcohol use: Never Comment: Alcoholic Drinks/day: Never Drank Alcohol Drug use: Never [6] Family History Problem Relation Name Age of Onset Cancer Mother MOM Heart disease Father DAD Hypertension Father DAD Arthritis Other Coronary artery disease Other Hypertension Other Malig Hyperthermia Neg Hx documented in this encounter Plan of Treatment Upcoming Encounters Date Type Department Care Team (Late st Contact Info) Description 09/02/2025 1:40 PM EST Office Visit [facility] Multidisciplinary Oncology Clinic [address] [place] [address] Sherin Perdue, PA [address] [place] [address] 08/28/2026 11:10 AM EST [facility] [address] [place] [address] Floridalma Espinal APRN, DNP [address] [facility] [address] [place] [address] documented as of this encounter Visit Diagnoses Diagnosis Abnormal finding on MRI of brain- Primary documented in this encounter Additional Health Concerns Assessment Noted Time PHQ-9 Depression Total Score: 0 06/03/20 1:56 PM EDT A fall risk assessment has been complete d for the patient 08/29/2025 1:55 PM EST A Body Mass Index follow-up plan has been documented for the patient 08/29/2025 2:31 PM EST documented as of this encounter Care Teams Skin Peeling Machine Operator Relationship Specialty Start Date End Date Kulwant Rojas MD [address] [place] [address] PCP - General 02/20/21 Jose Sprague MD [address] [place] [address] Consulting Physician Radiation Oncology 07/31/24 Floridalma Espinal APRN, EDWIGE [address] [place] [address] Nurse Practitioner Urology 07/02/25 documented as of this encounter
--- OUTSIDE RECORDS SUMMARY | 2025-08-31 09:18 | XMS_ITS | Clinical Summary ---
Author Organization [facility] Address [address] [place] [address] Phone Care Team Providers Care Elementary School Teacher Name Role Phone Unavailable Primary Care Provider [...]
--- OUTSIDE RECORDS SUMMARY | 2025-08-31 09:18 | XMS_ITS | Encounter Summary ---
Author Organization [facility] Address [address] [place] [address] Care Team Providers Care Platform Beater Name Role Phone Kulwant Rojas MD Primary Care Provider + [phone] Jose Sprague MD Unavailable [phone] Floridalma Espinal APRN, [facility] Unavailable [phone] Reason for Referral * Consultation (Routine) - Closed Specialty Diagnoses / Procedures Referred By Tahir juarez Referred To Contact Neurology Diagnoses White matter abnormality on MRI of brain Mariel Navas APRN [address] [facility] [address] [place] [address] Phone: tel: fax: Referral ID Status Reason Start Date Expiration Date V isits Requested Visits Authorized [id number] Closed Specialty Services Required 07/19/2025 01/18/2027 1 1 Encounter Details Date Type Department Care Team (Late st Contact Info) Description 07/19/2025 Community Orders Community Practice [address] [place] [address] Mariel Navas APRN [address] [facility] [address] [place] [address] White matter abnormality on MRI of brain [...] Description 09/02/2025 1:40 PM EST Office Visit [facility] Multidisciplinary Oncology Clinic [address] [place] [address] Sherin Perdue, PA [address] [place] [address] 08/28/2026 11:10 AM EST Office [facility] [address] [place] [address] Floridalma Espinal, COTTON DISPATCHER, DNP [address] [place] [address] Scheduled Referrals Name Type Priority Associated Diagnoses Orde r Schedule Ambulatory referral to Neurology Outpatient Referral Routine White matter abnormality on MRI of brain Expected: 07/19/2025 (Approximate), Expires: 01/20/2027 documented as of this encounter Visit Diagnoses Diagnosis White matter abnormality on MRI of brain- Primary documented in this encounter Additional Health Concerns Assessment Noted Time PHQ-9 Depression Total Score: 0 06/03/20 25 1:56 PM EDT A fall risk assessment has been complete d for the patient 07/02/2025 10:10 AM EDT A Body Mass Index follow-up plan has been documented for the patient 07/02/2025 11:12 AM EDT documented as of this encounter Care Teams Platform Beater Relationship Specialty Start Date End Date Kulwant Rojas MD [address] [place] [address] PCP - General 02/20/21 Jose Sprague MD [address] [facility] [address] [place] [address] Consulting Physician Radiation Oncology 07/31/24 Floridalma Espinal APRN, DNP [address] [facility] [address] [place] [address] Nurse Practitioner Urology 07/02/25 documented as of this encounter
--- OUTSIDE RECORDS SUMMARY | 2025-08-31 09:19 | XMS_ITS | Clinical Summary ---
Author Organization [facility] Address [address] [place] [address] Phone [email or web address] Care Team Providers Care Yard Associate Name Role Phone Jarrellfili Kulwant Primary Care Provider [phone] Allergies No known active allergies Medications verapamil [...] Immunization Administration Dates Next Due Covid-19 (Moderna Sau[place], 12yrs+) (CVX-207) 2020,01/01/2021 Social History Tobacco Use [...] [address] [place] [address] Care Teams Yard Associate Relationship Specialty [place] [address] PCP - General Spinner Operator 03/14/20
--- OUTSIDE RECORDS SUMMARY | 2025-08-31 09:19 | XMS_ITS | Encounter Summary ---
Author Organization Healthcare Address [address] [place] [address] Care Team Providers Care Immunohematologist Name Role Phone Kulwant Rojas MD Primary Care Provider + [phone] Jose Sprague MD Unavailable [phone] Floridalma Espinal APRN, DNP Unavailable [phone] Encounter Details Date Type Department Care Team [...] difficult at all 07/02/2025 10:10 AM EDT Epifanio Balbina adiaryah documented as of this encounter Plan of Treatment Upcoming Encounters Date Type Department Care Team (Late st Contact Info) Description 09/02/2025 1:40 PM EST Office Visit [facility] Multidisciplinary Oncology Clinic [address] [place] [address] Sherin Perdue, PA [address] [place] [address] 08/28/2026 11:10 AM EST Office Visit [facility] [address] [place] [address] Floridalma Espinal, INTERIOR DECORATOR PAPERHANGING, DNP [address] [place] [address] documented as of this encounter [...] documented as of this encounter Care Teams Immunohematologist Relationship Specialty Start Date End Date Kulwant Rojas MD [address] [place] [address] PCP - General 02/20/21 Jose Sprague MD [address] [facility] [address] [place] [address] Consulting Physician Radiation Oncology 07/31/24 Floridalma Espinal APRN, DNP [id number] [place] [address] Nurse Practitioner Urology 07/02/25 documented as of this encounter
--- OUTSIDE RECORDS SUMMARY | 2025-08-31 09:19 | XMS_ITS | Encounter Summary ---
Author Organization Healthcare Address [address] [place] [address] Care Team Providers Care Concaver Name Role Phone Kulwant Rojas MD Primary Care Provider + [phone] Jose Sprague MD Unavailable [phone] Floridalma Espinal APRN, [facility] Unavailable [phone] Reason for Referral * Consultation (Routine) - Closed Specialty Diagnoses / Procedures Referred By Contac t Referred To Contact Urology Diagnoses Elevated PSA Kulwant Rojas MD [address] [facility] [address] [place] [address] Phone: tel: fax: Kulwant Hairston MD [address] [facility] [address] [place] [address] Phone: tel: fax: Referral ID Status Reason Start Date Expiration Date V isits Requested Visits Authorized [id number] Closed Specialty Services Required 02/29/2024 08/30/2025 1 1 Encounter Details Date Type Department Care Team (Late st Contact Info) Description 02/29/2024 [facility] [address] [place] [address] Kulwant Rojas MD [address] [facility] [address] [place] [address] Elevated PSA (Primary Dx) Social History Tobacco [...] Description 09/02/2025 1:40 PM EST Office Visit [facility] Multidisciplinary Oncology Clinic [address] [place] [address] Sherin Perdue PA [address] [facility] [address] [place] [address] 08/28/2026 11:10 AM EST [facility] [address] [place] [address] Floridalma Espinal APRN, DNP [address] [facility] [address] [place] [address] Scheduled Referrals Name Type Priority Associated Diagnoses Order Schedule Ambulatory referral to Urology Outpatient Referral Routine Elevated PSA Ordered: 02/29/2024 documented as of this encounter Visit Diagnoses Diagnosis Elevated PSA- Primary Elevated prostate specific antigen (PSA) documented in this encounter Care Teams Concaver Relationship Specialty Start Date End Date Kulwant Rojas MD [address] [place] [address] PCP - General 02/20/21 Jose Sprague MD [address] [facility] [address] [place] [address] Consulting Physician Radiation Oncology 07/31/24 Floridalma Espinal APRN, DNP [address] [place] [address] Nurse Practitioner Urology 07/02/25 documented as of this encounter
--- OUTSIDE RECORDS SUMMARY | 2025-08-31 09:20 | XMS_ITS | Encounter Summary ---
Author Organization Healthcare Address [address] [place] [address] Care Team Providers Care Rheologist Name Role Phone Kulwant Rojas MD Primary Care Provider + [phone] Jose Sprague MD Unavailable [phone] Floridalma Espinal APRN, DNP Unavailable [phone] Encounter Details Date Type Department Care Team (Latest Contact Info) Description 08/27/2025 Travel Social History Tobacco Use Types Packs/Day [...] [facility] [address] [place] [address] Sherin Perdue, PA [address] [place] [address] 08/28/2026 11:10 AM EST Office Visit [facility] [address] [place] [address] Floridalma Espinal APRN, DNP [address] [place] [address] documented as of this encounter [...] documented as of this encounter Care Teams Rheologist Relationship Specialty Start Date End Date Kulwant Rojas MD [address] [place] [address] PCP - General 02/20/21 Jose Sprague MD [address] [facility] [address] [place] [address] Consulting Physician Radiation Oncology 07/31/24 Floridalma Espinal APRN, EDWIGE [address] [place] [address] Nurse Practitioner Urology 07/02/25 documented as of this encounter
--- OUTSIDE RECORDS SUMMARY | 2025-08-31 09:20 | XMS_ITS | Encounter Summary ---
Author Organization Healthcare Address [address] [place] [address] Care Team Providers Care Combatant Diver Officer Name Role Phone Kulwant Rojas MD Primary Care Provider + [phone] Jose Sprague MD Unavailable [phone] Floridalma Espinal APRN, DNP Unavailable [phone] Encounter Details Date Type Department Care Team (Latest Contact Info) Description 08/29/2025 Travel Social History Tobacco Use Types Packs/Day Years Used Date Smoking Tobacco: Never Passive Smoke Exposure: Never Smokeless Tobacco: Current Snuff Alcohol Use Standard Drinks/Week Comments Never 0 [...] [facility] [address] [place] [address] Sherin Perdue, MITRA [address] [place] [address] 08/28/2026 11:10 AM EST Office Visit [facility] [address] [place] [address] Floridalma Espinal APRN, EDWIGE [address] [place] [address] documented as of this encounter [...] documented as of this encounter Care Teams Combatant Diver Officer Relationship Specialty Start Date End Date Kulwant Rojas MD [address] [place] [address] PCP - General 02/20/21 Jose Sprague MD [address] [facility] [address] [place] [address] Consulting Physician Radiation Oncology 07/31/24 Floridalma Espinal APRN, EDWIGE [address] [facility] [address] [place] [address] Nurse Practitioner Urology 07/02/25 documented as of this encounter
--- OUTSIDE RECORDS SUMMARY | 2025-08-31 09:20 | XMS_ITS | Encounter Summary ---
Author Organization Healthcare Address [address] [place] [address] Care Team Providers Care Boring Machine Operator Vertical Name Role Phone Kulwant Rojas MD Primary Care Provider + [phone] Jose Sprague MD Unavailable [phone] Floridalma Espinal APRN, DNP Unavailable [phone] Encounter Details Date Type Department Care Team (Late st Contact Info) Description 08/26/2025 Telephone [place] [facility] [address] [place] [address] Floridalma Espinal, CONSULT[employer], DNP [address] [place] [address] Social History Tobacco Use Types [...] encounter Miscellaneous Notes * Telephone Encounter - Case, Maxim T - 08/26/2025 3:11 PM EST Called patient regarding concern. Left voice mail message for patient to return call * Telephone Encounter - Mone Tafoya - 08/26/2025 10:49 AM EST Clinical Concern/Question Reason for Call: Ppt called, has another appt at 0950 tomorrow morning and is afraid he is not going to be able to make the jill TH appt time with us, asking to r/s. Please review and call pt with info. Thanks! Best contact number: [phone] (mobile) Optimal time of day to reach caller: ANYTIME Additional comments/information from caller: None Note: Please do not reply to this message. Follow-up communication and further actions as a result of this message need to be communicated with the patient directly, if the patient is not active onMyChart. If the patient is active on MyChart, they will receive notification of the communication/outcome via [employer]. documented in this encounter Plan of Treatment Upcoming Encounters Date Type Department Care Team (Late st Contact Info) Description 09/02/2025 1:40 PM EST Office Visit [facility] [address] [place] [address] Sherin Perdue, PA [address] [address] 08/28/2026 11:10 AM EST Office Visit [place] [facility] [address] [place] [address] Floridalma Espinal P, [employer], DNP [address] [address] documented as of this encounter Visit Diagnoses [...] documented as of this encounter Care Teams Boring Machine Operator Vertical Relationship Specialty Start Date End Date Kulwant Rojas MD [address] [place] [address] PCP - General 02/20/21 Jose Sprague MD [address] [facility] [address] [place] [address] Consulting Physician Radiation Oncology 07/31/24 Floridalma Espinal APRN, DNP [address] [facility] [address] [place] [address] Nurse Practitioner Urology 07/02/25 documented as of this encounter
--- OUTSIDE RECORDS SUMMARY | 2025-08-31 09:20 | XMS_ITS | Clinical Summary ---
Author Organization [facility] Address [address] [place] [address] Care Team Providers Care Linotype Mechanic Name Role Phone Kulwant Rojas MD Primary Care Provider [phone] Allergies No known active allergies Medications valsartan [...] Department Care Team Description 07/02/2025 Results Follow-Up [facility] RHEUMATOLOGY [address] [address] John Cristina DO 06/27/2025 3:00 PM EDT Office Visit [facility] RHEUMATOLOGY [address] [address] John Cristina DO ROSA positive [...] Description 10/31/2025 1:00 PM EST Office Visit [facility] [address] [facility] [address] [place] [address] Luis A Matamoros, VINEET [address] [facility] [address] [place] [address] Health Maintenance Due Date Last [...] ORDERABLES Final Result * LABS SCANNED (06/17/2025) [facility] Onbase LAB BLOOD ORDERABLES Final Re sult from Last 3 Months Insurance [facility] PPO Care Teams Linotype Mechanic Relationship Specialty Start Date End Date Kulwant Rojas MD [address] [place] [address] PCP - General Adolescent Medicine 06/27/25
--- OUTSIDE RECORDS SUMMARY | 2025-08-31 09:20 | XMS_ITS | Clinical Summary ---
Author Organization [facility] Address [address] [place] [address] Care Team Providers Care Bilingual Hr Generalist Name Role Phone Kulwant Rojas MD Primary Care Provider + [phone] Jose Sprague MD Unavailable [phone] Floridalma Espinal APRN, [facility] Unavailable [phone] Allergies No known active allergies Medications albuterol [...] (320 mg) by mouth in the morning. 024 Active verapamil ER (Veralan PM) 180 MG 24 hr capsule Take 1 capsule (180 mg) by mouth nightly. Do not crush or chew. Active tadalafil (Cialis) 20 MG tablet Take 1 tablet (20 mg) by mouth 1 (one) time each day if needed for erectile dysfunction. 30 tablet 3 025 Active Additional Information Patient not taking.Reported on 08/29/2025 NON FORMULARY SYRINGE WITH NEEDLE 3 ML 22 X 1 /2 Active sildenafil (Viagra) 100 MG tabletIndications :Erectile dysfunction after radical prostatectomy Take 1 tablet by mouth daily as needed for erectile dysfunction. 15 tablet 3 025 Active Additional Information Patient not taking.Reported on 08/29/2025 Zepbound 7.5 MG/0.5ML solution auto-injector INJECT 1 AUTO-INJECTOR SUBCUTANEOUSLY ONCE A WEEK Active celecoxib (CeleBREX) 200 MG capsule Take 1 capsule by mouth daily. Active alprostadil-phent olamine-papaverin e (Trimix) 20-1-30 mcg-mg-mg/mL intracavernosal injection Inject 0.10 mL (10 units) to 0.50 mL (50 units) as directed. 2 mL 11 025 Active alprostadil-phent olamine-papaverin e (Trimix) 20-1-30 mcg-mg-mg/mL intracavernosal injection APPOINTMENT #1 TRIAL. Use as directed. 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 Gastro-esophageal reflux disease without [...] Encounters Date Type Department Care Team Description 08/29/2025 1:45 PM EST Consult [facility] [address], [facility] [place] [address] Brendon Davidson MD Abnormal finding on MRI of brain (Primary Dx) 08/29/2025 Travel 08/27/2025 10:50 AM EST Office Visit [facility] [address], [address] [place] [address] Floridalma Espinal APRN, DNP Erectile dysfunction following radical prostatectomy (Primary Dx) 08/27/2025 Travel 08/26/2025 Telephone [facility] [address], [address] [place] [address] Floridalma Espinal APRN, DNP 07/19/2025 [facility] [address] [place] [address] Mariel Navas, VINEET White matter abnormality on MRI of brain (Primary Dx) 07/02/2025 10:10 AM EDT Procedure Visit [facility] [address], [address] [place] [phone] Floridalma Espinal, REAL ESTATE SALES AGENT, DNP Erectile dysfunction after radical prostatectomy (Primary Dx) 07/02/2025 Travel 07/01/2025 Orders Only [facility] [address], [address] [place] [phone] Floridalma Espinal APRN, DNP 07/01/2025 Travel 06/03/2025 2:00 PM EDT Office Visit [facility] Multidisciplinary Oncology Clinic [address] [place] [address] Sherin Perdue PA Erectile dysfunction after radical prostatectomy (Primary Dx); Malignant neoplasm of prostate (CMS/HCC) 06/03/2025 Travel from Last 3 Months Immunizations Immunization [...] Pulse 63 08/29/2025 1:53 PM EST Temperature 36.7 C (98 F) 06/03/2025 1:54 PM EDT Respiratory Rate 14 07/02/2025 10:22 AM EDT Oxygen Saturation 97% 08/29/2025 1:53 PM EST Inhaled Oxygen Concentration - - Weight 97.2 kg (214 lb 4.6 oz) 08/29/2025 1:53 P M EST Height 177.8 cm (5' 10 ) 08/29/2025 1:53 PM EST Body Mass Index 30.75 08/29/2025 1:53 PM EST Plan of Treatment Upcoming Encounters Date Type Department Care Team (Late st Contact Info) Description 09/02/2025 1:40 PM EST Office Visit [facility] Multidisciplinary Oncology Clinic [address] [place] [address] Sherin Perdue, PA [address] [place] [address] 08/28/2026 11:10 AM EST Office Visit [facility] [address] [place] [address] Floridalma Espinal, REAL ESTATE SALES AGENT, DNP [address] [place] [address] Health Maintenance Due Date Last [...] 2012 Sigmoidoscopy 2012 [facility]-Colorectal Cancer Screening 2012 [id number]-48 Vaccine (3 - Moderna risk series) 02/26/2021 01/29/2021, 01/01/2021 [facility]-Depression Screening 07/02/2026 07/02/2025, 05/11 [facility]-DTaP,Tdap,and Td Vaccines (2 - Td or Tdap) 06/17/2035 06/17/2025 [facility]-Hepatitis A Vaccines Aged Out 08/03/2019, 09/09 No longer eligible based on patient's age to complete this topic [facility]-Influenza Vaccine Completed 06/17/2025 , 08/04/2023, 09/22/2022, Additional history exists [facility]-Obesity Intervention Completed 025, 08/27/2025, 07/02/2025, Additional history exists HPV Vaccines Aged Out [...] patient's age to complete this topic Insurance [place] [id number] [facility] Advance Directives * Full Code (Latest Code Status on File) Date Activated Date Inactivated Comments 10/23/2024 1:32 PM 10/24/2024 5:21 PM Question Answer Comments Patient has decision-making capacity? Yes Care Teams Bilingual Hr Generalist Relationship Specialty Start Date End Date Kulwant Rojas MD [address] [place] [address] PCP - General 02/20/21 Jose Sprague MD [address] [facility] [address] [place] [address] Consulting Physician Radiation Oncology 07/31/24 Floridalma Espinal, REAL ESTATE SALES AGENT, DNP [address] [address] Nurse Practitioner Urology 07/02/25
--- OUTSIDE RECORDS SUMMARY | 2025-08-31 09:20 | XMS_ITS | Data Portability ---
Author Organization [place] [facility], [facility] Address [address] [facility] [place] [address] Care Team Providers Care Boiler House Supervisor Name Role Phone FRANCES WIGGINS Primary Care Provider [phone] Assessment Encounter Date Assessment Date Assessment LastModified [...] decompressed for a while. He works at [employer]. He'll need to be out of work [...] for staple removal. Incision is well healed. [place] were removed. Pt is doing well. Tolerated the procedure well. [email or web address] Not available 09/02/2020 16:05:36 09/18/2020 09/18/2020 Mr. Lozano is doing very well after undergoing a far lateral discectomy. Pain is resolved. He works at [employer]. I will get him in for lumbar [...] (PROC ) No observ ation record ed. [email or web address] [address], [place], [address], 08/29/2020 13:50:33 04/13/20 22 04/02/2022 MRI, lumba r spine , w/wo contr ast No observ ation record ed. [facility] [address], [place], [address], 05/25/2022 14:46:27 05/03/20 22 04/02/2022 MRI, lumba r spine , w/o contr ast No observ ation record ed. [facility] [address], [place], [address], 05/05/2022 13:18:51 Result Notes None recorded. Procedures Surgical History Date Name Laterality Status Provider Name and Address Organization Details Recorded Time 08/18/20 TRANSPEDICULAR SPINAL DECOMPRESSION, LUMBAR (SURG) completed Alena Hand [facility] 09/02/2020 14:55:38 Hernia repair w/mesh completed Yaritza Alfaro [facility] 08/14/2020 09:16:55 Imaging Results None recorded. [...] Updated DateTime 05/04/2022 177.8 cm 34.3 kg/m2 245150.5 8 g 59 /min 139/69 mm[Hg] [facility] 05/04/2022 14:46:13 Date Recorded Body height Body mass index (BMI) Body weight Heart rate Systolic And Diastolic Provider Name and Address Organization Details Last Updated DateTime 08/14/2020 177.8 cm 33 kg/m2 722526.2 5 g 75 /min 146/79 mm[Hg] [facility] 08/14/2020 09:15:43 Social History None recorded. [...] ICD10 Code Diagnosis IMO Codes Diagnosis Note [id number] LEXUS FARRAR MD [facility] [address] [place] [address] 08/14/2020 08:34:10 08/14/2020 14:40:44 Lumbar disc prolapse with radiculopathy 757718402 M51.16 [id number] LEXUS FARRAR MD [facility] [address] [place] [address] 09/02/2020 15:27:40 09/02/2020 16:08:33 [id number] LEXUS FARRAR MD SURGERY SCHEDULE [address] [place] [address] 09/05/2020 12:56:39 09/05/2020 13:16:31 [id number] LEXUS FARRAR MD [facility] [address] [place] [address] 09/18/2020 09:29:24 09/18/2020 10:23:18 Prolapsed lumbar intervertebral disc 104481011 M51.26 [id number] LEXUS FARRAR MD [facility] [address] [place] [address] 05/04/2022 13:38:36 05/10/2022 13:52:27 Lumbar spondylosis 902334996 M47.896 Health Concerns Section Related Observation LastModified by Organization Detai ls LastModified Time None Recorded Concern Status LastModified by Organization Details LastModified Time None Recorded Advance Directives Directive None Recorded Payers Insurance Date Sequence Insurance Name Policy Number Policy Lang Covered Member ID Lang Member ID Guarantor Name 07/10/2024 1 [place] [id number] Mario Lozano [id number] 20 Mario Lozano 09/05/2020 2 [place] [id number] Mario Lozano [id number] 20 Mario Lozano Notes Date Note Type [...] the pain. LEXUS FARRAR MD [address] [place], [address], [facility] 08/14/2020 10:16:02 09/18/2020 text/html I saw Mr. Lozano. I performed a right L3-4 far lateral microlumbar discectomy on August 18, 2020. He has a very small amount and numbness in the anterior medial right thigh. He has no pain. He's happy. LEXUS FARRAR MD [address] [place] [address], [address], [facility] 09/18/2020 10:23:15 05/04/2022 text/html I saw [...] time. He was on vacation at the [facility] last week and it was being relatively sedentary. He states it is a lot better than it was when he had the MRI scan performed recently. He's had no conservative treatment. LEXUS FARRAR MD [address] [place] [address] [place], [address], [facility] 05/04/2022 14:57:07
--- OUTSIDE RECORDS SUMMARY | 2025-08-31 09:20 | XMS_ITS | Encounter Summary ---
Author Organization [facility] Address [address] [place] [address] Care Team Providers Care Gold Miner Blasting Name Role Phone Kulwant Rojas MD Primary Care Provider [phone] Encounter Details Date Type Department Care Team (Late st Contact Info) Description 07/02/2025 Results Follow-Up [facility] RHEUMATOLOGY [address] [address] John Cristina DO [address] [address] Social History Tobacco Use Types Packs/Day Years [...] Description 10/31/2025 1:00 PM EST Office Visit [facility] 330 [facility] [address] [place] [address] Luis A Matamoros, VINEET 330 [facility] [address] [place], [place] [id number] documented as of this encounter Visit Diagnoses Not on filedocumented in this encounter Care Teams Gold Miner Blasting Relationship Specialty Start Date End Date Kulwant Rojas MD [address] [facility] [address] [facility] [address] [place] [address] PCP - General Adolescent Medicine 06/27/25 documented as of this encounter
[2025-08-31 11:24] LABS: Prostate Specific Ag, Diagnost < 0.064 ng/ml (0.0-4.0)
[2025-09-01 09:11] LABS: Testosterone,Total 266 ng/dL (264-916)
== END 2025-08-31 23:59 | disposition home or self-care (01) ==
LOC: LAB 09:17
PROVIDERS: PCP Internal Medicine Adolescent Medicine; Visit Provider Physician Assistant
DX: C61 Malignant neoplasm of prostate (principal); N52.31 Erectile dysfunction following radical prostatectomy
CPT/HCPCS: 36415; 84153; 84403

== ENCOUNTER 2025-09-23 12:22 | Day surgery (SDC) | payer BC, SELFPAY ==
--- NOTE | 2025-09-18 07:13 | EXP.HP ---
History of Present Illness *Admission Date: 09/23/25 *History of present illness: Mr. Lozano is a 60-year-old gentleman who is here for follow-up screening/surveillance colonoscopy secondary to a personal history of adenomatous colon polyps. He did have an initial screening colonoscopy with [facility] in February 2018 and had 3 polyps (tubular adenomas x 2 and small serrated adenoma x 1) which were removed. He also had an EGD with [facility] in February 2018 and had nonerosive GERD with no obvious Llanos's but biopsies had shown intestinal metaplasia at the GE junction. The examination is deemed medically necessary for screening/surveillance colonoscopy. The patient has been seen, interviewed and examined prior to the procedure by both myself and the anesthesia provider. [facility] Disclaimer: The information contained in this section may have been updated after the patient was seen, as this information can be updated by other users. Medical History Prostate cancer Dyspnea on exertion Anthracosilicosis ILD (interstitial lung disease) Mediastinal lymphadenopathy Hilar lymphadenopathy Black lung disease Hypertension Surgical History History of lumbar surgery History of hernia surgery Family History Other Cancer Heart attack Social History Smoking Status: Never smoker alcohol intake: current alcohol intake frequency: a few times a week substance use type: denies use current occupational status: employed Travel in the last 8 weeks?: None household members: family housing: house caffeine: Yes Have you lived/traveled outside US in past 30 days?: No Contact w/someone who lives/traveled outside US past 30 days?: No Exposure to someone with infectious disease in past 14 days?: No Do you have a fever (greater than 100.4 F or 38 C)?: No Have you tested positive for COVID-19?: No Exposed to someone with COVID-19 in past 14 days?: No Do you have a sore throat?: No Do you have a cough?: No Do you have any weakness?: No Are you experiencing any nausea/vomitting?: No Do you have any diarrhea?: No Are you experiencing any unusual bleeding?: No Do you have any muscle aches/pain?: No Do you have any abdominal pain?: No Are you experiencing loss of taste or smell?: No Other Medical History Have you received the Flu Vaccine for this season: Yes Have you received the Pneumonia Vaccine: No Review of Systems Review of Systems Review of systems (narrative): Negative *Cardiovascular Comments: Negative *Gastrointestinal Comments: Negative *Genitourinary Comments: Negative *Musculoskeletal Comments: Negative *Neurologic Comments: Negative Meds Home Medications and Allergies Home Medications ?Medication ?Instructions ?Recorded ?Confirmed ?Type valsartan 320 1 each PO DAILY blood pressure 02/20/18 09/09/25 History mg-hydrochlorothiazide 12.5 mg tablet albuterol sulfate 90 mcg/actuation 2 inh inhalation QID PRN shortness 11/09/23 09/09/25 Rx aerosol inhaler of breath or wheezing 90 days #8.5 grams celecoxib 200 mg capsule 200 mg PO DAILY 09/09/25 09/09/25 History tirzepatide (weight loss) 7.5 7.5 mg SQ WEEKLY 09/09/25 09/09/25 History mg/0.5 mL subcutaneous pen injector (Zepbound) sodium,potassium,mag sulfates 17.5 See Rx Instructions PO .COMPLEX 09/10/25 Rx gram-3.13 gram-1.6 gram oral soln #354 mL (Suprep Bowel Prep Kit) New Prescriptions to Start Prescriptions: Allergies Allergy/AdvReac Type Severity Reaction Status Date / Time No Known Allergies Allergy Verified 09/23/25 13:01 Exam *Routine HEENT Exam Head: Present normocephalic Eye: Present EOMI and PERRL ENT: Present mucous membranes moist *Routine Neck Exam Neck: Present supple *Routine Respiratory Exam Respiratory: Present CTA bilaterally *Routine Cardiovascular Exam Cardiovascular: Present RRR *Routine Abdominal Exam Abdominal: Present soft and normoactive bowel sounds; Absent tenderness *Routine Rectal Exam Rectal:: deferred *Routine Genitalia Exam Genitalia:: deferred *Routine Extremities Exam Extremities: Absent cyanosis, clubbing or edema *Routine Skin Exam Skin: Present warm; Absent rash *Routine Neurological Exam Neurological: Present alert and oriented X3 Assessment and Plan *Assessment and plan (1) Personal history of adenomatous and serrated colon polyps: Status: Acute Category: Medical Code(s): Z86.0101 - Personal history of adenomatous and serrated colon polyps (2) Screening for colon cancer: Status: Acute Category: Medical Code(s): Z12.11 - Encounter for screening for malignant neoplasm of colon Plan A/P: 1. Personal history of adenomatous colon polyps is the preprocedural diagnosis. The patient will be anesthetized/sedated using MAC sedation. The patient has been seen and examined. Cardiac and lung assessment prior to the examination is stable. Proceed with planned screening/surveillance colonoscopy.
--- NOTE | 2025-09-20 15:32 | SUR.PREOP ---
left detailed message with arrival time, npo instructions, bowel prep instructionis and need for rental car ferry driver. gave callback number if pt had any questions or if pt needed to reschedule/cancel
--- NOTE | 2025-09-23 06:49 | P.PCN_ITS ---
[facility] Procedure Note Date: 09/23/25 Time: 14:17 Procedure Note:: Colonoscopy Procedure Report: Colonoscopy Endoscopist: Juan Sutton II, MD Referring physician: Kulwant Rojas M.D. Date of Procedure: September 23, 2025 Equipment: Olympus [id number] adult colonoscope Sedation: MAC sedation Indication: Mr. Lozano is a 60-year-old gentleman who is here for follow-up screening/surveillance colonoscopy secondary to a personal history of adenomatous colon polyps. He did have an initial screening colonoscopy with me in February 2018 and had 3 polyps (tubular adenomas x 2 and small serrated adenoma x 1) which were removed. The patient reports no abdominal pain, weight loss, change in his bowel habits or rectal bleeding. He reports no family history of colon cancer. He does state that his mother had diverticulitis. The patient does state that every 3 to 6 months he will have more excruciating lower abdominal pain preceded by some obstipation/constipation. He subsequently passes a lot of gas and bowel movements and this will resolve. He also had an EGD with me in February 2018 and had nonerosive GERD with no obvious Llanos's but biopsies had shown intestinal metaplasia at the GE junction. The examination is deemed medically necessary for screening/surveillance colonoscopy. Procedure: Prior to the procedure, a history and physical exam was performed, and patient's medications and allergies were reviewed. The risks, benefits and alternatives of the sedation and procedure were discussed with the patient. All questions were answered and informed consent was obtained. The patient was brought to the procedure room. Patient identification and proposed procedure were verified by the physician and the nurse. The patient was placed in a left lateral decubitus position and the scope was passed under direct vision. Throughout the procedure, the patient's blood pressure, pulse, and oxygen saturations were monitored continuously. The colonoscopy was accomplished without difficulty. The patient tolerated the procedure well. Findings: On digital rectal examination there was normal rectal tone. There were no external hemorrhoids. The colonoscope was introduced through the anal canal to the rectum and advanced to the cecum. The ileocecal valve and appendiceal or ifice were identified. The scope was advanced a short distance into the ileum which appeared grossly normal. The scope was then withdrawn into the colon. The cecum, ascending and transverse colon and mucosa were grossly normal. There were scattered diverticuli throughout the descending and sigmoid colon (LEFT colon). The rectum itself was normal. Upon retroflexion within the rectum there were grade 1-2 internal hemorrhoids. The preparation was excellent throughout with Niles Preparation Score of 9. The cecal time was 12 minutes. Impression: 1. Left-sided diverticulosis 2. Grade 1-2 internal hemorrhoids Plan: The patient will not require screening/surveillance colonoscopy again for 10 years. I would encourage psyllium bulking fiber supplementation on a maintenance basis.
[2025-09-23 13:08] VITALS: BP 159/90; PULSE 66; RESP 16; TEMP 36.5; O2SAT 98; BMI 30.8
[2025-09-23] MEDS: LACTATED RINGERS 1000ML 1,000 ML 50 ML IV (13:20)
--- NOTE | 2025-09-23 13:26 | EXP.ANES.CKL ---
[facility] Disclaimer: The information contained in this section may have been updated after the patient was seen, as this information can be updated by other users. Medical History Prostate cancer Dyspnea on exertion Anthracosilicosis ILD (interstitial lung disease) Mediastinal lymphadenopathy Hilar lymphadenopathy Black lung disease Hypertension Surgical History History of lumbar surgery History of hernia surgery Family History Other Cancer Heart attack Social History Smoking Status: Never smoker alcohol intake: current alcohol intake frequency: a few times a week substance use type: denies use current occupational status: employed Travel in the last 8 weeks?: None household members: family housing: house caffeine: Yes Have you lived/traveled outside [place] in past 30 days?: No Contact w/someone who lives/traveled outside [place] past 30 days?: No Exposure to someone with infectious disease in past 14 days?: No Do you have a fever (greater than 100.4 F or 38 C)?: No Have you tested positive for COVID-19?: No Exposed to someone with COVID-19 in past 14 days?: No Do you have a sore throat?: No Do you have a cough?: No Do you have any weakness?: No Are you experiencing any nausea/vomitting?: No Do you have any diarrhea?: No Are you experiencing any unusual bleeding?: No Do you have any muscle aches/pain?: No Do you have any abdominal pain?: No Are you experiencing loss of taste or smell?: No [facility] Anesthesia Checklist Patient Identification Patient Identification: Arm Band and Verbal (Name & ) Structural Data Admitted From: Home Planned Operative Procedure/s: Colonscopy Consent for Planned Operative Procedure(s) Verified: Yes Verified Documents: Surgical Consent and History and Physical NPO Status Verified Time NPO: 00:00 Additional verifications Anesthesia Reactions: No Hx Blood Transfusions: No Blood Transfusion Reaction: No Airway Assessment Mallampati Score:: Class II C-Spine Mobility Assessed: Yes TMJ Mobility Assessed: Yes Dentition: Good Dentition Neurological Assessment Level of Consciousness: Awake, Alert and Appropriate Hx Seizures: No Numbness or tingling in extremities: No Anesthesia Plan Anesthesia Risk discussed: Yes Anesthesia Plan: Verified ASA Class: II Anesthesia Type: MAC
[2025-09-23 14:19] VITALS: BP 101/64; PULSE 68; RESP 16; TEMP 36.4; O2SAT 97
[2025-09-23 14:29] VITALS: BP 98/61; PULSE 58; RESP 17; TEMP 36.4; O2SAT 95
[2025-09-23 14:39] VITALS: BP 102/64; PULSE 58; RESP 17; TEMP 36.4; O2SAT 96
[2025-09-23 14:49] VITALS: BP 114/68; PULSE 57; RESP 18; TEMP 36.4; O2SAT 97
== END 2025-09-23 15:10 | disposition home or self-care (01) ==
PROVIDERS: PCP Internal Medicine Adolescent Medicine; Visit Provider Internal Medicine Gastroenterology
PROC: 0DJD8ZZ Inspection of Lower Intestinal Tract, Via Natural or Artificial Opening Endoscopic (ICD-10-PCS; CPT 45378; principal; 2025-09-23 14:00)
DX: Z12.11 Encounter for screening for malignant neoplasm of colon (principal); K57.30 Diverticulosis of large intestine without perforation or abscess without bleeding; K64.0 First degree hemorrhoids; K64.1 Second degree hemorrhoids; I10 Essential (primary) hypertension; Z86.0101 Personal history of adenomatous and serrated colon polyps
CPT/HCPCS: 45378; J2003; J2704; J7120